=== PATIENT | male | born 1975 | race Caucasian/White ===

== ENCOUNTER 2023-09-10 14:01 | Outpatient (CLI) | payer OTHER, SELFPAY ==
--- NOTE | ~2023-09-10 | CT_ITS ---
EXAMINATION: CT abdomen pelvis w con INDICATION: Abdominal pain TECHNIQUE: Computed tomographic images of the abdomen and pelvis were obtained after the administrati on of 100 cc of Omnipaque 350 intravenous contrast. The dose-length product (DLP) was 483.45 mGy-cm. Automated exposure control and iterative reconstruction technique were employed. COMPARISON: None available FINDINGS: The lung bases are clear. The heart size is normal. There are changes of cholecystectomy. T he liver, spleen, pancreas, and adrenal glands are normal. The right kidney is unremarkable. Cysts of the left kidney measure up to 2.4 cm. No pathologically enlarged abdominal or pelvic lymph nodes are identified. No free intraperitoneal gas or evidence of bowel obstruction. No pathologically enlarged abdominal or pelvic lymph nodes are identified. There is submucosal fat deposition in the proximal c olon and terminal ileum which is nonspecific but can be seen in the setting of inflammatory bowel dis ease. There is moderate lumbar spondylosis at L5-S1. IMPRESSION: 1. No CT correlate for the patient's symptoms. Reviewed, dictated and finalized at location L. NEERING ADMINISTRATOR
== END 2023-09-10 14:02 | disposition home or self-care (01) ==
PROVIDERS: PCP Emergency Medicine; Visit Provider Emergency Medicine
DX: R10.10 Upper abdominal pain, unspecified (principal)
CPT/HCPCS: 74177; Q9967

== ENCOUNTER 2023-10-07 07:51 | Outpatient (CLI) | payer OTHER, SELFPAY ==
--- NOTE | 2023-10-07 08:04 | ECHO_ITS ---
Patient Info Name: Philip De Leon Age: 48 years : 1975 Gender: Male Ht: 69 in Wt: 190 lbs BSA: 2.07 m2 HR: 67 bpm BP: 130 / 87 mmHg Technical Quality: Good Exam Date: 10/07/2023 8:08 AM Exam Location: Echo Lab Patient Status: Outpatient Admit Date: 10/07/2023 Staff Ordering Physician: Santiago Desouza DO Resume Writer: Tamera Lancaster RDCS Attending Provider: Santiago Desouza DO Referring Physician: Deo WILEY; Exam Type: CA echo doppler color flow Study Info Indications R06.09 - Other forms of dyspnea Complete two-dimensional, color flow and Doppler transthoracic echocardiogram is performed. Strain analysis performed. Summary 1. Complete two-dimensional, color flow and Doppler transthoracic echocardiogram is performed. 2. Left ventricular chamber dimension is normal. 3. Left ventricular systolic function is normal, estimated at 60-65%. 4. The left ventricular diastolic function is normal. 5. E/e' 7 is not elevated. 6. Global longitudinal strain is abnormal at -15.8%. 7. There is trace mitral valve regurgitation. 8. There is trace tricuspid valve regurgitation. 9. No pulmonary hypertension, estimated pulmonary arterial systolic pressure is 19 mmHg. Left Ventricle E/e' 7 is not elevated. Global longitudinal strain is abnormal at -15.8%. Left ventricular chamber dimension is normal. Left ventricular systolic function is normal, estimated at 60-65%. The left ventricular diastolic function is normal. Right Ventricle Right ventricular chamber dimension is normal. Right ventricular systolic function is normal. Left Atria Left atrial chamber dimension is normal. Right Atria Right atrial chamber dimension is normal. Aortic Valve The aortic valve is trileaflet. There is no aortic valve stenosis. There is no aortic valve regurgitation. Pulmonic Valve There is no pulmonic regurgitation. Mitral Valve There is no mitral valve stenosis. There is trace mitral valve regurgitation. Tricuspid Valve There is trace tricuspid valve regurgitation. No pulmonary hypertension, estimated pulmonary arterial systolic pressure is 19 mmHg. Pericardium/Pleural There is no pericardial effusion. Inferior Vena Cava Normal inferior vena cava with >50% collapse upon inspiration consistent with normal right atrial pressure, 5 mmHg. Aorta The aortic root size at the sinus of Valsalva is normal. Left Ventricular Outflow Tract Name Value Normal LVOT 2D LVOT Diameter 2.0 cm LVOT Doppler LVOT Peak Gradient 3 mmHg LVOT Mean Gradient 2 mmHg LVOT VTI 17 cm LVOT VTI/AV VTI Ratio 1.0 LVOT Stroke Volume 54 ml LVOT CO 3.8 l/min LVOT CI 1.8 l/min/m2 Pulmonic Valve Name Value Normal RVOT Doppler RVOT Peak Gradient 1 mmHg
--- NOTE | 2023-10-07 08:04 | EST_ITS ---
Patient Info Name: Philip De Leon Age: 48 years : 1975 Gender: Male Ht: 69 in Wt: 190 lbs BSA: 2.07 m2 HR: 72 bpm BP: 139 / 89 mmHg Heart Rhythm: Sinus Rhythm Exam Date: 10/07/2023 8:43 AM Exam Location: Echo Lab Patient Status: Outpatient Admit Date: 10/07/2023 Staff Ordering Physician: Santiago Desouza DO Attending Provider: Santiago Desouza DO Exercise Technologist: Steffanie Silveira CT Exercise Physician: Santiago Desouza DO Exam Type: CA stress test treadmill Study Info Indications R07.89 - Other chest pain R06.09 - Other forms of dyspnea A treadmill exercise stress test was performed. Summary 1. 1. Negative Asa exercise stress test for ischemic ST changes by ECG criteria. 2. 2. Good functional capacity, achieving 10 METs of workload. 3. 3. Hypertensive response to exercise. 4. 4. Appropriate HR response to exercise. 5. 5. Appropriate HR recovery at 1 minute post exercise. 6. 6. No imaging with stress testing. 7. 7. Patient informed of the above results. Protocol: Asa Stress ECG Details Stage: REST Duration (min): 5 min : 13 sec Speed (mph): 0.0 Grade (%): 0 HR (bpm): 83 SBP (mmHg): 139 DBP (mmHg): 89 METS: --- Stage: REST Duration (min): 8 min : 17 sec Speed (mph): 0.0 Grade (%): 0 HR (bpm): 80 SBP (mmHg): 139 DBP (mmHg): 89 METS: --- Stage: STAGE 1 Duration (min): 1 min : 0 sec Speed (mph): 1.7 Grade (%): 10 HR (bpm): 100 SBP (mmHg): 139 DBP (mmHg): 89 METS: --- Stage: STAGE 1 Duration (min): 2 min : 0 sec Speed (mph): 1.7 Grade (%): 10 HR (bpm): 107 SBP (mmHg): 139 DBP (mmHg): 89 METS: --- Stage: STAGE 1 Duration (min): 3 min : 0 sec Speed (mph): 1.7 Grade (%): 10 HR (bpm): 106 SBP (mmHg): 180 DBP (mmHg): 94 METS: --- Stage: STAGE 2 Duration (min): 1 min : 0 sec Speed (mph): 2.5 Grade (%): 12 HR (bpm): 119 SBP (mmHg): 180 DBP (mmHg): 94 METS: --- Stage: STAGE 2 Duration (min): 2 min : 0 sec Speed (mph): 2.5 Grade (%): 12 HR (bpm): 122 SBP (mmHg): 198 DBP (mmHg): 91 METS: --- Stage: STAGE 2 Duration (min): 3 min : 0 sec Speed (mph): 2.5 Grade (%): 12 HR (bpm): 126 SBP (mmHg): 198 DBP (mmHg): 91 METS: --- Stage: STAGE 3 Duration (min): 1 min : 0 sec Speed (mph): 3.4 Grade (%): 14 HR (bpm): 138 SBP (mmHg): 204 DBP (mmHg): 95 METS: --- Stage: STAGE 3 Duration (min): 2 min : 0 sec Speed (mph): 3.4 Grade (%): 14 HR (bpm): 146 SBP (mmHg): 204 DBP (mmHg): 95 METS: --- Stage: STAGE 3 Duration (min): 2 min : 59 sec Speed (mph): 4.2 Grade (%): 16 HR (bpm): 153 SBP (mmHg): 211 DBP (mmHg): 93 METS: --- Stage: RECOVERY Duration (min): 1 min : 0 sec Speed (mph): 0.0 Grade (%): 0 HR (bpm): 128 SBP (mmHg): 211 DBP (mmHg): 93 METS: --- Stage: RECOVERY Duration (min): 2 min : 0 sec Speed (mph): 0.0 Grade (%):
== END 2023-10-07 07:52 | disposition home or self-care (01) ==
PROVIDERS: PCP Emergency Medicine; Visit Provider Internal Medicine Cardiovascular Disease
DX: R06.09 Other forms of dyspnea (principal); R07.89 Other chest pain
CPT/HCPCS: 93017; 93306

== ENCOUNTER 2024-05-19 13:06 | Outpatient (CLI) | payer OTHER, SELFPAY ==
--- NOTE | ~2024-05-19 | US_ITS ---
EXAMINATION: US renal BI DATE: 05/19/2024 13:20 INDICATION: Renal calculus and renal insufficiency TECHNIQUE: Multiple ultrasound grayscale images of the kidneys were obtained. COMPARISON: None. FINDINGS: The right kidney measures 11.2 x 4.4 x 5.5 cm. The left kidney measures 11.6 x 5.7 x 5.7 cm. The kidn eys demonstrate normal echogenicity. 2.6 similar anechoic left renal cyst. There is no hydronephrosis in either kidney. No stones identified. The bladder is normal. IMPRESSION: 1. 2.6 cm left renal cyst. Otherwise normal kidneys without hydronephrosis. Reviewed, dictated and finalized at location A.
== END 2024-05-19 13:07 ==
PROVIDERS: PCP Emergency Medicine; Visit Provider Internal Medicine Nephrology
DX: N20.0 Calculus of kidney (principal); N28.1 Cyst of kidney, acquired
CPT/HCPCS: 76775

== ENCOUNTER → 2024-05-27 09:02 | Outpatient (CLI) | payer OTHER, SELFPAY ==
--- NOTE | 2024-06-04 16:37 | WPDSLEEPSTUD ---
Sleep Study Date of Study: 05/27/24 Ordering Provider: Hayden Carrillo MD Interpreting Physician: Debbie Mike MD Sleep Study Type: CPAP Titration Height: 1.75 m Weight: 80.286 kg Body Mass Index: 26.1 Neck Circumference (inches): 16 Wilson: 6 Reason for Sleep Study Obstructive sleep apnea, patient presents for a CPAP titration * 08/13/2023 home sleep test using Snap portable test; the apnea-hypopnea index was 28.1, the central apnea index was 4.5 and the central% ratio was 16%. Lowest saturation 86%. RDI using a 4% criteria was 28.6; BMI was 28.2 * 06/13/2021, PSG, AHI 11.3, REM AHI 29.9 * 06/10/2017, [facility] in [place], [place], AHI 1.4, REM AHI 6.1; RDI 15.7 minimum saturation 91%; patient could not tolerate an oral appliance Sleep History Ramiro De Leon is a 48-year-old man with obstructive sleep apnea, currently having difficulty because his mask does not fit properly. He is having too many events. Initially his treatment was effective. When he had other conditions such as kidney stones, his apneas increased. His kidney stones were removed but he continues to have elevated numbers of apneas on his reports. He rarely and sometimes occasionally awakens from sleep feeling short of breath. He never wakes at night with heartburn, belching or coughing.??He frequently snores, frequently snores loudly enough that others complain. He rarely has trouble sleeping when he has a cold. He rarely wakes up gasping for breath during the night. He occasionally has breathing problems at night if he is not wearing CPAP. He occasionally sweats excessively at night. He rarely notices his heart pounding or beating irregularly during the night. He never falls asleep during the day. He never falls asleep involuntarily, never falls asleep while driving. He never experiences loss of muscle tone with strong emotion. He rarely has daytime difficulty at work due to excessive sleepiness. He never feels paralyzed on waking or falling asleep. He never experiences vivid dreams upon waking or falling asleep. He never feels afraid of going to sleep. He rarely has nightmares. He never recalls his dreams. He rarely has thoughts racing through his mind. He rarely feels sad or depressed. He rarely feels anxiety. He rarely notices parts of his body jerk. He never kicks during the night. He never feels crawling or aching feelings in his legs. He never feels leg pain at night. He never has morning jaw pain, rarely grinds his teeth at night. He never feels bothered by pain during the day, never awakened by pain during the night. He occasionally wakes up feeling stiff in the morning, and he rarely wakes feeling sore or achy. He frequently awakens with pain in his hip and lower back. He has fatigue, headache, and palpitations. He has seasonal allergies. He reports 11 lb weight loss over the last year. Normal bedtime is between 10:00 p.m. and 11:00 p.m., falling asleep usually quickly, and off not waking up at all during the night. If he does awaken, he goes to the bathroom, has a sip of water and returns to sleep. His normal wake time is 10:00 a.m.. He keeps the same schedule on weekends. He estimates getting between 6 and 8 hours of sleep at night. He takes naps in the day at times however a short nap lasting 10-15 minutes is not refreshing. He generally feels better after using CPAP at night. He feels better in the morning compared to other times of day. Habits:??Tobacco: Never smoker Caffeine: 3-4 servings per day Alcohol: Never Recreational substances: Never PMFSH Past Medical History Medical History (Updated 05/11/24 @ 15:42 by Nessa Dominguez MD) Dyslipidemia Nephrolithiasis TYLER (obstructive sleep apnea) Surgical History Surgical History (Updated 06/04/24 @ 16:46 by Debbie Mike MD) H/O arthroscopy of right knee History of cholecystectomy S/P T&A (status post tonsillectomy an
[2024-06-04 16:48] VITALS: BMI 26.1
== END ==
LOC: ANHCSM 09:07
PROVIDERS: PCP Emergency Medicine; Visit Provider Emergency Medicine
DX: G47.33 Obstructive sleep apnea (adult) (pediatric) (principal)
CPT/HCPCS: 95811

== ENCOUNTER 2025-01-08 13:07 | Outpatient (CLI) | payer OTHER, SELFPAY ==
--- OUTSIDE RECORDS SUMMARY | 2025-01-08 13:32 | XMS_ITS | Patient Health Summary ---
Author Organization [facility] Address [address] [place] [address] Care Team Providers Care Air Purifier Servicer Name Role Phone Unavailable Primary Care Provider Unavailabl e Note from [facility],non-owned Affiliates and Associated Physician Practices is amultiple site organization consisting of ambulatory clinics and hospital sitesin [place], [place], [place] and [place]. This disclosure is being madepursuant to the Care Everywhere program and may not contain all information available regarding this patient. Last updated 18.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 INSTRUCTOR Height 179.1 cm (5' 10.5 ) 10/31/2020 1:50 PM CS T Body Mass Index 26.45 10/31/2020 1:50 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 The specimen consists of a shave biopsy measuring 7x7x2 mm. Jar 0. 3:31 PM [facility] Microscopic Description Specimen A. SKIN, right forearm: There is acanthosis, compact hyperkeratosis, hypergranulosis, and fibrosis of the papillary dermis. There is an ulcer, beneath which there are vascular proliferation, fibroblasts, a mixed inflammatory infiltrate, and an edematous stroma. Grocott's methenamine silver (GMS) stain is negative for fungal elements in the sections examined. Tissue Gram stain is negative for bacteria in the sections examined. COMMENT: The overall histologic features are somewhat nonspecific, and can be seen in the setting of healing skin and ulceration. Prurigo nodularis with ulceration was also considered. A superimposed dermatitis, such as connective tissue disease, cannot be excluded. Clinical correlation is recommended. 3:31 PM [facility] Disclaimer An external and internal positive and negative controls are appropriate for the histochemical, immunohistochemical and immunofluorescence stain(s) in this case (if any), except where stated explicitly. The performance characteristics of the stain(s) cited in this report were developed and its performance characteristic determined by the Dermatopathology Laboratory at [facility], directed by Dr. Calvin Ayers. These tests need not be, and therefore are not, approved by the [place] Food and Drug Administration. The tests are used for clinical purposes. Billing Codes Specimen Charges Stain Charges 05725 1 [id number] 1 1 3:31 PM [facility] Embedded Images 3:31 PM CDT DERMATOPATHOLOGY LABORATORY Pathology/Cytolog y TISSUE SPECIMEN FROM SKIN / Unknown 08/12/2024 08/13/2024 12:50 PM CDT Letty Almanza MD LAB - PATHOLOGY/CYTO LOGY ORDERABLES DERMATOPATHOLOGY LABORATORY [facility] - Department of Dermatology [facility] [address] [place] [address], [address] [phone]
--- OUTSIDE RECORDS SUMMARY | 2025-01-08 13:32 | XMS_ITS | Clinical Summary ---
Author Organization [facility] Address [address] [place] [address] Care Team Providers Care Second Hand Name Role Phone Unavailable Primary Care Provider Unavailabl e Source Comments [facility],non-owned Affiliates and Associated Physician Practices is amultiple site organization consisting of ambulatory clinics and hospital sitesin [place], [place], [place] and [place]. This disclosure is being madepursuant to the Care Everywhere program and may not contain all information available regarding this patient. 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 Temperature - - Respiratory Rate - - Oxygen Saturation - - Inhaled Oxygen Concentration - - Weight 84.8 kg (187 lb) 10/31/2020 1:50 PM CERTIFIED ACTIVITIES DIRECTOR Height 179.1 cm (5' 10.5 ) 10/31/2020 1:50 PM CS T Body Mass Index 26.45 10/31/2020 1:50 PM 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 DIRECTOR Plan of Treatment Health Maintenance Due Date Last Done Comments COLOGUARD (AGES 45-75) - COL ON CA SCREENING 1975 COLON MONITORING 1975 COLONOSCOPY - COLON CA SCREENING 1975 CT COLONOGRAPHY - COLON CA SCREENING 1975 Colorectal Cancer Screening 1975 FIT - COLON CA SCREENING 1975 FLEX SIG - COLON CA SCREENING 1975 LIPID TESTING 1975 HIV SCREENING 1988 HEPATITIS C SCREENING 07/24/1991 DTAP/TDAP/TD VACCINES (1 - Tdap) 1992 HEPATITIS B VACCINE (1 of 3 - 19+ 3-dose series) 1992 SCREENING FOR DIABETES 11/01/2020 PNEUMOCOCCAL VACCINE 50+ (1 of 1 - PCV) 2023 ZOSTER VACCINE (1 of 2) 2023 COVID-19 VACCINE (1 - 2023-2 5 season) 2024 INFLUENZA VACCINE (#1) 2024 DEPRESSION SCREENING 11/04/2024 HIB VACCINE Aged Out No longer eligi ble based on patient's age to complete this topic HPV VACCINE Aged Out No longer eligi ble based on patient's age to complete this topic MENINGOCOCCAL (Group B) VACCINE Aged Out No longer eligible based on patient's age to complete this topic MENINGOCOCCAL VACCINE Aged Out No иван david eligible based on patient's age to complete this topic PNEUMOCOCCAL VACCINE Aged Out No long er eligible based on patient's age to complete this topic
--- OUTSIDE RECORDS SUMMARY | 2025-01-08 13:32 | XMS_ITS | Continuity of Care Document ---
Author Organization [facility] Address [address] [facility] [place] [address] Phone Care Team Providers Care Linux System Administrator Name Role Phone Hayden Carrillo MD Unavailable Unavailable Allergies, Adverse Reactions, Alerts Substance Reaction Status Criticality morphine Active No Information Procedures Procedure Date OFFICE/OUTPATIENT VISIT, EST OFFICE/OUTPATIENT VISIT, EST OFFICE/OUTPATIENT VISIT, EST OFFICE/OUTPATIENT VISIT, EST OFFICE/OUTPATIENT VISIT, EST PREV VISIT, EST, AGE 40-64 OFFICE/OUTPATIENT VISIT, EST OFFICE/OUTPATIENT VISIT, EST PREV VISIT, NEW, AGE 40-64 Advance Directives Directive Yes / No Effective Date File Name No Information Encounters Encounter Description Practice Location Reason(s) For Visit Diagnoses Date Provider Providers Copied on Encounter OFFICE/OUTPA TIENT VISIT, EST [facility], [address] [place], [place], [id number], tel:[phone] [facility] sleep apnea1 (chief complaint) renal stone1 (chief complaint) skin (chief complaint) Renal stoneObstructive Sleep Apnea HypopneaStage III chronic renal diseaseRashHypergly cemia Gerardo Blake. [address] [place], [id number] , [place]. tel:[phone] OFFICE/OUTPA TIENT VISIT, EST [facility], [address] [place], [id number], tel:[phone] [facility] cough1 (chief complaint) skin1 (chief complaint) Cellulitis of right upper limbAcute cough 4 Gerardo Ramirez [address], [place], [place], [address] , [place]. tel:[phone] OFFICE/OUTPA TIENT VISIT, [facility], [address] [place], [id number], [place] tel:[phone] [facility] sleep apnea1 (chief complaint) palpitatio n1 (chief complaint) skin (chief complaint) liver cyst1 (chief complaint) Liver diseaseObstructive Sleep Apnea HypopneaPalpitation sStaphylococcus aureus infection 4 Gerardo Ramirez [address], [place], [place], [id number] , [place]. tel:[phone] OFFICE/OUTPA TIENT VISIT, [facility], [address] [place], [address], [place] tel:[phone] [facility] sleep apnea1 (chief complaint) palpitatio n1 (chief complaint) plantar1 (chief complaint) liver cyst1 (chief complaint) Liver diseaseObstructive sleep apnea (adult) (pediatric)Other chest painPlantar fascial fibromatosis 3 Gerardo Ramirez [address], [place], [place], [address] , [place]. tel:[phone] OFFICE/OUTPA TIENT VISIT, [facility], [address] [place], [address], [place] tel:[phone] [facility] HLP (chief complaint) bili1 (chief complaint) sleep apnea1 (chief complaint) chest pain1 (chief complaint) foot pain1 (chief complaint) left side abd pain1 (chief complaint) Plantar fascial fibromatosisOther chest painLiver diseaseMixed hyperlipidemiaDisor patrice of bilirubin metabolism, unspecifiedObstruct efe sleep apnea (adult) (pediatric)Upper abdominal pain 3 Gerardo Ramirez [address], [place], [place], [address] , [place]. tel:[phone] PREV VISIT, EST, AGE 40-64 [facility], [address], [place], [place], [address], [place] tel:[phone] [facility] physical (chief complaint) Encounter for general adult medical exam w abnormal findingsPrimary central sleep apneaLiver diseaseRadiculopath y, cervical region 3 Gerardo Blake. [address], [place], [place], [address] , [place]. tel:[phone] OFFICE/OUTPA TIENT VISIT, EST [facility], [address], [place], [place], [address], [place] tel:[phone] [facility] sick1 (chief complaint) sleep apnea1 (chief complaint) radiculopa thy1 (chief complaint) liver lesion1 (chief complaint) Viral infectionPrimary central sleep apneaLiver diseaseRadiculopath y, cervical region 2 Gerardo Blake. [address], [place], [place], [address] , [place]. tel:[phone] PREV VISIT, NEW, AGE 40-64 [facility], [address], [place], [place], [address], [place] tel:[phone] [facility] Medicine physical (chief complaint) Encounter for general adult medical examination without abnormal findings 1 Gerardo Blake. [address], [place], [place], [address] , [place]. tel:[phone] Family History Family Member Type Diagnosis Age At Onset Mother Problem of 66 due to vaginal CA Father Problem Alive and well Maternal grandfather Problem colon CA 70s Sister Problem Alive and well Payers Payer name Insurance type Covered democrat ID Authoriza tion(s) No Information Social History Type Description Quantity Date Captured Comments Alcohol Use Details wine Caffeine Use Details Unknown Tobacco Use Status Current non-smoker Smoking Status Never smoker Sex Male Vital Signs Date / Time: Height Weight BMI Pulse Rate Blood Pressure Temperature Respiratory Rate Body Surface Area Head Circumference BMI percentile Pulse Ox Inhaled Ox 2:57 PM 69.00 in 182.00 lbs 26.8 8 kg/m eter (2) 81 /min 110/70 mm[Hg] 98.4 F 16 /min Chief Complaint And Reason For Visit From encounter dated '04/02/2024 14:49'. sleep apnea1 (chief complaint). Description: pt has sleep apnea. pt has been using cpap nightly andhe notices that he feels more tired in the morning with more apnea event at night despite using cpap recently. He was doing well with cpap until about two weeks ago . renal stone1 (chief complaint). Description: Pt had obstructed right side renal stone recently s/p hospital admission with stenting which was removed. Pt doing ok post the stent removal Pt urinating ok now Pt denies any flank pain or fever, chill. Pt denies any blood in urine Pt did have repeat renal function done which showed some persistent high creatine and low GFR Pt is very concerned about the renal issue. He also has left side benign renal cyst. Pt wants to see nephrology skin (chief complaint). Description: Pt did see dermatology and he told me the caterpillar mechanic told him the skin rash was due to dry skin He does not agree with such diagnosis Pt thinks that his skin issue is due to renal issue. He states that as soon as his renal stone was removed, his rash resolvedHe is concerned for any intraparenchymal renal disease. Plan Of Treatment Date Type Action Status Referral Ordered: Nephrology (related to Stage III chronic renal disease) ordered Referral Ordered: Referrals: Nephrology. Evaluate and treat ordered Referral Ordered: Dermatology (related to Staphylococcus aureus infection) ordered Referral Ordered: Referrals: Dermatology. Evaluate and treat ordered Referral Ordered: [facility] -Podiatric Medicine & Surgery Service Providers : Boom Pump Operator (related to Plantar fascial fibromatosis) ordered Referral Ordered: CT ABDOMEN&PELVIS W/CONTRAST ordered Referral Ordered: SLEEP STUDY, ATTENDED ordered Referral Referred To: [facility] [address] [facility]
[place], [place], [id number] Ordered: Referrals: Podiatric Medicine & Surgery Service Providers : Boom Pump Operator. [facility]. Evaluate and treat ordered Referral Referred To: Santiago Desouza [address] [place], [phone] Ordered: Referrals: Santiago Desouza. Evaluate and treat ordered Referral Ordered: MOTOR NERVE CONDUCTION TEST ordered History Of Present Illness Encounter Date Complaint History Of Prese nt Illness sleep apnea1 pt has sleep pumper brewery ea. pt has been using cpap nightly and he notices that he feels more tired in the morning with more apnea event at night despite using cpap recently. He was doing well with cpap until about two weeks ago . renal stone1 Pt had obstructe d right side renal stone recently s/p hospital admission with stenting which was removed. Pt doing ok post the stent removal Pt urinating ok now Pt denies any flank pain or fever, chill. Pt denies any blood in urine Pt did have repeat renal function done which showed some persistent high creatine and low GFR Pt is very concerned about the renal issue. He also has left side benign renal cyst. Pt wants to see nephrology skin Pt did see irina casey and he told me the caterpillar mechanic told him the skin rash was due to dry skin He does not agree with such diagnosis Pt thinks that his skin issue is due to renal issue. He states that as soon as his renal stone was removed, his rash resolved He is concerned for any intraparenchymal renal disease. cough1 Pt states that h e coughed this morning and he saw some worm like thing under microscope in his phlegm. Pt denies any hemoptysis. Pt denies any sob. pt denies any recurrent cough skin1 Pt has recurrent open skin sores with some clear drainage without itching for one year Pt notices mild pain sometimes when the spots flare up. Pt denies any sick contact. Pt denies any fever Pt is on doxycycline which seems to make the area less red but they still persists sleep apnea1 Pt has sleep pumper brewery ea Pt has been using cpap since September of last year and he feels great pt feels more energy and better rest at night. palpitation1 Pt has history o f palpitation with atypical chest pain Pt saw cardiology and he had negative stress test and cardiac echo and event monitor. he was cleared by cardiology he also had negative calcium score test He states that his palpitation and chest pain resolved since using cpap skin Pt has recurrent open skin sores with some clear drainage without itching for one year Pt notices mild pain sometimes when the spots flare up. Pt denies any sick contact. Pt denies any liver cyst1 Pt has history o f liver cyst. pt has mild left abdominal pain. pt had negative CT scan Pt no longer has any pain now sleep apnea1 Pt has moderate and severe sleep apnea with oxygen desaturation palpitation1 Pt has intermitt ent palpitation and chest pain, nonexertional related Pt denies any acute chest pain Pt has sonal with cardiology this Saturday plantar1 Pt has left foot plantar fasciitis .Pt saw podiatry and he is on voltaren and he is on daily exercise and boot now and his foot pain improved. liver cyst1 Pt has liver cys t Pt has not had any abd pian Pt has not done liver Ct yet chest pain1 Pt c/o intermitt ent chest pain and palpitation and some exertional sob frequently. Pt denies any diaphoresis, nausea, vomiting. Pt has not been physically active Pt states that he feels mildly sob when he goes up stairs foot pain1 Pt c/o left heel pain with radiation of pain to arch of feet, worse in the morning, but gets better with ambulation. Pt has above symptoms for more than 6 months pt denies any heel redness, warmth Pt denies any injury Pt denies any paresthesia or calf pain left side abd pain1 Pt c/o inter mittent left upper quadrant abd pain with movement for several months Pt denies any GERd, nausea, vomiting Pt c/o sharp pain sometimes Pt denies any postprandial pain HLP Pt has mild HLP Pt is not on any diet bili1 Pt has borderlin e high bili Pt denies any abd pain or jaundice. sleep apnea1 Pt has history o f sleep apnea Pt does snore at night. Pt had sleep study done 5 years ago which showed mild sleep apnea Pt never used cpap. Pt has been using dental device for the past two years and he wants to use cpap He does feel tired all the time physical Pt needs annual physical. Pt has intermittent neck pain with left radiculopathy to left arm Pt denies any weakness. Pt states that overall his left radiculopathy and neck pain have not been very bothersome recently Pt has ? cervical disc pathology. Pt is seeing [facility] doctor but no plans for any further work up per patient. He also has sleep apnea but he is not using cpap. Pt denies any fatigue Pt denies any snoring Pt denies any other complaints sick1 Pt c/o acute ons et of sore throat productive cough for 1.5 weeks. Pt denies any fever, sob. Pt is fully vaccinated for COVID and he had multiple negative home COVID testing since last week Pt received flu shot 2 weeks ago. Pt denies any headache or dysphagia. Pt denies any chest pain sleep apnea1 Pt has sleep juarez dy done which showed sleep apnea Pt is waiting for cpap radiculopathy1 Pt c/o persisten t left arm numbness and tingling with radiculopathy symptoms. Pt had NCS done which showed cervical disc issue Pt was told by [facility] that he needs surgery but he is not interested in any neck surgery Pt states that his left arm symptoms are not bad now. He has mild neck pain intermittently liver lesion1 Pt recently had CT of abdomen done by [facility] and was told ok per patient. Pt denies any abd pain physical Pt needs annual physical. Pt has sleep apnea and he is in the process of getting CPAP set up. Pt sees sleep specialist. Pt c/o acute onset of left shoulder pain with radiation of pain down to left wrist for 5-6 weeks Pt denies any injury. Pt also notices a sharp pain left axillary area for 5-6 weeks as well. Pt denies any ricardo neck pain .Pt also has some pain left upper chest wall area constantly for 5-6 weeks ago .Pt denies any GERD. Pt states that he does cardio exercise without any chest pain. Pt denies any sob .Pt went to [facility] ER on 05/31/21 for chest pain and he had negative cardiac enzymes and EKG and he had CT angio of chest, abd and pelvis which showed benign hepatic cyst. Pt denies any exertional chest pain. Pt also has left arm numbness and tingling and weakness. Pt is seeing PCP at [facility] who ordered C spine and left shoulder MRi which he is scheduled for this Saturday. Pt takes flexeril and also mobic but not helping his constant pain around left shoulder and left armpit. Pt had x ray of c spine and left shoulder done which were benign. Instructions Date Instruction Additional Infor mation No Information Assessments Type Assessment Date assessment Renal stone assessment Obstructive Sleep Apnea Hypopnea assessment Stage III chronic renal disease assessment Rash assessment Hyperglycemia Mental Status Date Cognitive Assessment Orientation - [place] ed to time, place, person, situation.
--- OUTSIDE RECORDS SUMMARY | 2025-01-08 13:32 | XMS_ITS | Referral Summary ---
Author Organization [facility] Address [address] [place] [address] Care Team Providers Care Basin Tender Name Role Phone Unavailable Primary Care Provider Unavailabl e Source Comments [facility],non-owned Affiliates and Associated Physician Practices is amultiple site organization consisting of ambulatory clinics and hospital sitesin [place], [place], [place] and [place]. This disclosure is being madepursuant to the Care Everywhere program and may not contain all information available regarding this patient. Last updated 18.[facility] [employer] Allergies No known active allergies Social History Tobacco Use Types Packs/Day Years Used Date Smoking Tobacco: Never Assessed Sex and Gender Information Value Date Recorded Sex Assigned at Not on file Gender Identity Not on file Sexual Orientation Not on file Last Filed Vital Signs Vital Sign Reading Time Taken Comments Blood Pressure - - Pulse 72 10/31/2020 1:50 PM SCISSORS SHARPENER Temperature - - Respiratory Rate - - Oxygen Saturation - - Inhaled Oxygen Concentration - - Weight 84.8 kg (187 lb) 10/31/2020 1:50 PM SCISSORS SHARPENER Height 179.1 cm (5' 10.5 ) 10/31/2020 1:50 PM CS T Body Mass Index 26.45 10/31/2020 1:50 PM SCISSORS SHARPENER Plan of Treatment Not on file
--- OUTSIDE RECORDS SUMMARY | 2025-01-08 13:32 | XMS_ITS | Clinical Summary ---
Author Organization [facility] Address [facility] [place] [address] Care Team Providers Care Ground Systems Engineer Name Role Phone Hayden Carrillo MD Primary Care Provider [phone] Allergies Active Allergy Reactions Criticality Noted Date Comments Morphine Anaphylaxis High 12/03/2017 Medications Pediatric Multiple Vitamins (FLINTSTONES MULTIVITAMIN OR) Take 1 tablet by mouth daily. Active famotidine (PEPCID) 20 MG tablet Take 1 tablet (20 mg total) by mouth 2 (two) times daily. 60 tablet 03/25/2024 Active traMADol (ULTRAM) 50 MG tabletIndications :Acute Pain < 3 Day Supply Take 1 tablet (50 mg total) by mouth every 6 (six) hours as needed. Indications : Acute Pain < 3 Day Supply 12 tablet 03/25/2024 Active Active Problems Problem Noted Date Diagnosed Date Kidney stone 03/23/2024 Family History Medical History Relation Comments Cancer Mother Stroke Mother Relation Status Comments Mother Social History Tobacco Use Types Packs/Day Years Used Date Smoking Tobacco: Never Smokeless Tobacco: Never Alcohol Use Standard Drinks/Week Comments No 0 (1 standard drink = 0.6 oz pur e alcohol) [facility] Utilities Answer Date Recorded In the past 12 months has i-drive electric, gas, oil, or water company threatened to shut off services in your home? No 03/23/2024 Humiliation, Afraid, Rape, and Kick questionnair e Answer Date Recorded Within the last year, have y ou been afraid of your partner or ex-partner? No 03/23/2024 Within the last year, have y ou been humiliated or emotionally abused in other ways by your partner or ex-partner? No Within the last year, have y ou been kicked, hit, slapped, or otherwise physically hurt by your partner or ex-partner? No 03/23/2024 Within the last year, have y ou been raped or forced to have any kind of sexual activity by your partner or ex-partner? No 03/23/2024 Overall Financial Resource Strain (CARDIA) Answe r Date Recorded How hard is it for you to pa y for the very basics like food, housing, medical care, and heating? Not hard at all 03/23/2024 Hunger Vital Sign Answer Date Recorded Within the past 12 months, y ou worried that your food would run out before you got the money to buy more. Never true 03/23/20 Within the past 12 months, t he food you bought just didn't last and you didn't have money to get more. Never true 03/23/2024 PRAPARE - Transportation Answer Date Re corded In the past 12 months, has l ack of transportation kept you from medical appointments or from getting medications? No 03/05 In the past 12 months, has l ack of transportation kept you from meetings, work, or from getting things needed for daily living? No 03/23/2024 Housing Stability Vital Sign Answer Apollo e Recorded In the last 12 months, was t here a time when you were not able to pay the mortgage or rent on time? No 03/23/2024 In the past 12 months, how m any times have you moved where you were living? 0 03/23/2024 At any time in the past 12 m [facility], were you homeless or living in a residential (including now)? No 03/23/2024 Sex and Gender Information Value Date Recorded Sex Assigned at Not on file Legal Sex Male 8:18 PM CDT Gender Identity Male 12/05/2022 8:37 AM INVENTORY CONTROL/SHIPPING RECEIVING Sexual Orientation Straight 12/05/2022 8: 37 AM INVENTORY CONTROL/SHIPPING RECEIVING Last Filed Vital Signs Vital Sign Reading Time Taken Comments Blood Pressure 111/70 03/25/2024 4:00 AM CDT Pulse 72 03/25/2024 4:00 AM CDT Temperature 36.6 C (97.8 F) 03/25/2024 7:45 AM CDT Respiratory Rate 17 03/25/2024 4:00 AM CDT Oxygen Saturation 94% 03/25/2024 4:00 AM CDT Inhaled Oxygen Concentration - - Weight 84.4 kg (186 lb 1.1 oz) 03/24/2024 11:56 AM CDT Height 175.3 cm (5' 9.02 ) 03/24/2024 11:56 AM C DT Body Mass Index 27.46 03/24/2024 11:56 AM CDT Plan of Treatment Health Maintenance Due Date Last Done Comments Colorectal Cancer Screening Colonoscopy (10 Years) 1973 Annual Physical 1976 PHQ-2 (Physician Filtr8) 1985 Hepatitis C 1991 DTaP, Tdap and Td Vaccines (1 - Tdap) 1992 Hepatitis B Vaccines (1 of 3 - 19+ 3-dose series) 1992 Zoster Vaccines (1 of 2) 2023 COVID-19 Vaccine ( - 2023- season) 2024 10/14/2021, 02/12/2021, 01/22/2021 Influenza Adult (#1) 2024 09/11/2021, 07/14/2017, 08/06/2016, Additional history exists PHQ-2 (Physician Filtr8) 11/04/2024 Meningococcal B Vaccine Aged Out No l onger eligible based on patient's age to complete this topic Meningococcal Vaccine Aged Out No иван david eligible based on patient's age to complete this topic Pneumococcal Vaccine: Pediatrics (0 to 5 Years) and At-Risk Patients (6 to 64 Years) Aged Out No longer eligible based on patient's age to complete this topic RSV Immunizations Under 20 Months Aged Out No longer eligible based on patient's age to complete this topic Goals Goal Patient Goal Type Associated Problems Recent Progress Patient-Stated? Author Health - patient able to perform ADLs independently Lifestyle No Jamee Irwin, RN Medical Devices Implanted Type Area Radio Electronics Officer Device Identifier Shelf Expiration Date Model / Serial / Lot Stent Ureteral [place] [employer] Contour 7fr X 28cm - [id number] Implanted:Qty : 1 on 03/24/2024 by Saul Youssef MD at [facility] Stent Right: Ureter [employer] [id number] 07/10/2024 [id number] / / [id number] Insurance [facility] Advance Directives * Full Code (Latest Code Status on File) Date Activated Date Inactivated Comments 03/23/2024 2:59 PM 03/25/2024 12:26 PM Care Teams Ground Systems Engineer Relationship Specialty Start Date End Date Hayden Carrillo MD [address] [place] [address] PCP - General FAMILY PRACTICE 04/04/20
--- OUTSIDE RECORDS SUMMARY | 2025-01-08 13:32 | XMS_ITS | Encounter Summary ---
Author Organization [facility] Address [address] [place] [address] Care Team Providers Care Ophthalmologist Name Role Phone Unavailable Primary Care Provider Unavailabl e Encounter Details Date Type Department Care Team (Late st Contact Info) Description 08/12/2024 Lab Requisition [facility] - DermPath Lab [address] [place] [address] Letty Almanza MD [address] [place] [phone] Dermatitis, unspecified Social History Tobacco Use Types Packs/Day Years Used Date Smoking Tobacco: Never Assessed Sex and Gender Information Value Date Recorded Sex Assigned at Not on file Gender Identity Not on file Sexual Orientation Not on file documented as of this encounter Plan of Treatment Not on file documented as of this encounter Procedures Procedure Name Priority Date/Time Associated Diagnosis Comments DERMATOPATHOLOGY Routine 08/12/2024 12:0 0 AM CDT Dermatitis, unspecified documented in this encounter Results * DERMATOPATHOLOGY (08/12/2024 12:00 AM CDT) Case Report Dermatopathology Report Case: [id number] Authorizing Provider: Letty Almanza MD Collected: 08/12/2024 12:00 AM Ordering Location: [facility] - Received: 08/13/2024 12:50 PM DermPath Lab Pathologist: Padma Tee MD Specimen: Skin, right forearm 3:31 PM CDT DERMATOPATHOLOGY LABORATORY Final Diagnosis Specimen A. SKIN, right forearm: HYPERKERATOSIS, ACANTHOSIS, AND HYPERGRANULOSIS (L28.1) ULCER WITH SUPERFICIAL DERMAL NECROSIS (L98.499) (see microscopic description and comment) 3:31 PM [facility] DERMATOPATHOLOGY LABORATORY Clinical History Actinic Prurigo vs Systemic Lupus Erythematosus 3:31 PM [facility] DERMATOPATHOLOGY [facility]ORATORY Gross Description Specimen A: Received is one formalin filled container labeled with the patient's name and designated right forearm. The specimen consists of a shave biopsy measuring 7x7x2 mm. Jar 0. 3:31 PM [facility] DERMATOPATHOLOGY LABORATORY Microscopic Description Specimen A. SKIN, [...] excluded. Clinical correlation is recommended. 3:31 PM [facility] DERMATOPATHOLOGY LABORATORY Disclaimer An external and internal positive and negative controls are appropriate for the histochemical, immunohistochemical and immunofluorescence stain(s) in this case (if any), except where stated explicitly. The performance characteristics of the stain(s) cited in this report were developed and its performance characteristic determined by the Dermatopathology Laboratory at [facility], directed by Dr. Calvin Ayers. These tests need not be, and therefore are not, approved by the [place] Food and Drug Administration. The tests are used for clinical purposes. Billing Codes Specimen Charges Stain Charges 43634 1 [id number] 53918 1 1 3:31 PM T DERMATOPATHOLOGY LABORATORY Embedded Images 3:31 PM [facility] DERMATOPATHOLOGY LABORATORY Pathology/Cytolog y TISSUE SPECIMEN FROM SKIN / Unknown 08/12/2024 08/13/2024 12:50 PM CDT Letty Almanza MD LAB - PATHOLOGY/CYTO LOGY ORDERABLES DERMATOPATHOLOGY LABORATORY [facility] - Department of Dermatology [facility] Special[facility] [address] [place] [address], [address] [phone] documented in this encounter Visit Diagnoses Diagnosis Dermatitis, unspecified documented in this encounter
--- OUTSIDE RECORDS SUMMARY | 2025-01-08 13:32 | XMS_ITS | CONTINUITY OF CARE DOCUMENT ---
Author Name erick suarez Address Unknown Organization [facility] Address [address] [place] [address] Phone [phone] Care Team Providers Care Correctional Security Officer Name Role Phone Agusto Harvey DO Unavailable Santiago Desouza DO Unavailable [phone] PROBLEMS Condition Status Date Provider Notes Cardiovascular screening active Altagracia Marie [employer] PROVID[employer] Payer name Policy type / Coverage type [employer] SELF PAY TREATMENT PLAN Date Name CT, Coronary Calcium Score HISTORY OF PROCEDURES Procedure Date Procedure Name Provider Procedure Notes S tatus CT- Coronary CA score Agusto Harvey DO completed
[2025-01-08 13:52] LABS: Albumin Level 4.9 g/dL (3.5-5.1); Anion Gap 11 mmol/L (4-12); Blood Urea Nitrogen 10 mg/dL (9-20); Calcium 9.4 mg/dL (8.4-10.2); Carbon Dioxide 28 mmol/L (22-30); Chloride 100 mmol/L (98-107); Estimated Glomerular Filt Rate > 60; Glucose 114 mg/dL (65-110); Potassium 3.4 mmol/L (3.4-5.0); Sodium 139 mmol/L (137-145)
[2025-01-08 14:52] LABS: Add Urine Microscopic? NO; Appearance Urine Clear (Clear); Bilirubin Urine Negative (Negative); Blood Urine Negative (Negative); Color Urine Yellow (Yellow); Glucose Urine UA Negative (Negative); Ketones Urine Trace mg/dL (Negative); Leukocyte Esterase Ur Negative LEU/UL (Negative); Nitrate Urine Negative (Negative); Protein Urine Negative (Negative); Specific Grav Ur 1.025 (1.001-1.035); Urobilinogen Urine 0.2 mg/dL (<2.0); pH Urine 5.5 (5.0-9.0)
[2025-01-08 15:28] LABS: Creatinine Urine 239.3 mg/dL
[2025-01-08 15:35] LABS: Total Protein Urine Random < 5 mg/dL; Ur Ttl Prot Creatinine Ratio < 0.02 mg/mg (0-0.20)
== END 2025-01-08 13:08 | disposition home or self-care (01) ==
PROVIDERS: PCP Emergency Medicine; Visit Provider Internal Medicine Nephrology
DX: N20.0 Calculus of kidney (principal); N28.9 Disorder of kidney and ureter, unspecified
CPT/HCPCS: 36415; 80069; 81003; 82570; 84156

== ENCOUNTER 2025-01-25 13:23 | Outpatient (CLI) | payer OTHER, SELFPAY ==
--- NOTE | ~2025-01-25 | US_ITS ---
EXAMINATION: US renal BI DATE: 01/25/2025 14:14 INDICATION: Left flank pain. Nephrolithiasis. TECHNIQUE: Multiple ultrasound grayscale images of the kidneys were obtained. COMPARISON: 05/19/2024 FINDINGS: The right kidney measures 11.5 x 4.1 x 5.0 cm. The left kidney measures 11.8 x 6.3 x 5.8 cm. The kidn eys demonstrate normal echogenicity. 2.8 cm anechoic left renal cyst. There is no hydronephrosis in e ither kidney. No stones identified. The bladder is normal. IMPRESSION: 1. 2.8 cm left renal cyst. Otherwise normal kidneys without hydronephrosis. Reviewed, dictated and finalized at location B.
== END 2025-01-25 13:24 | disposition home or self-care (01) ==
LOC: MICIMG 13:24
PROVIDERS: PCP Emergency Medicine; Visit Provider Internal Medicine Nephrology
DX: N20.0 Calculus of kidney (principal); R10.9 Unspecified abdominal pain; N28.1 Cyst of kidney, acquired
CPT/HCPCS: 76775

== ENCOUNTER 2025-02-04 13:49 | Outpatient (CLI) | payer OTHER, SELFPAY ==
--- NOTE | ~2025-02-04 | CT_ITS ---
Non-contrast CT scan of the Abdomen and Pelvis Clinical indication: Left ureteral stone Technique: 2.5 mm axial scans were obtained through the abdomen and pelvis without intravenous or or al contrast. Dose reduction technique was used on this scan by utilizing automated exposure control a nd iterative reconstruction technique. The dose-length product (DLP) was 214.08 mGy-cm. COMPARISON: 09/10/2023 Findings: Images through the lung bases reveal no abnormalities. Punctate distal left ureteral stone present. No hydronephrosis. No other stones identified. The liver, spleen, pancreas, and adrenals appear normal. Cholecystectomy clips are present. There is no aortic aneurysm. There is no evidence of bowel obstruction. Images through the pelvis were performed. There is no evidence of ascites or lymphadenopathy. Urinary bladder unremarkable. No pelvic mass seen. Impression: Punctate distal left ureteral stone. No hydronephrosis. Reviewed, dictated and finalized at [facility]. Impression: Punctate distal left ureteral stone. No hydronephrosis.
--- NOTE | ~2025-02-04 | XR_ITS ---
EXAM: XR abdomen/kub 1V DATE: 02/04/2025 14:08 HISTORY: URETAL STONE . COMPARISON: None available. FINDINGS: Cholecystectomy clips. Clear lung bases. Normal bowel gas pattern. No organomegaly. No abno rmal abdominal calcification. Regional bones and soft tissues normal for age. IMPRESSION: Unremarkable abdominal radiograph findings. Reviewed, dictated and finalized at location [facility].
--- OUTSIDE RECORDS SUMMARY | 2025-02-04 14:12 | XMS_ITS | Clinical Summary ---
Author Organization [facility] Address [address] [place] [address] Care Team Providers Care Crew Car Driver Name Role Phone Hayden Carrillo MD Primary Care Provider [phone] Allergies Active Allergy Reactions Criticality Noted Date Comments Morphine Unknown,Anaphylaxis High 12/03/2017 Medications multivitamin,tx -minerals (VITAMINS AND MINERALS) tablet Take 1 tablet by mouth. 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 Call immediately if any worsening of symptoms or new flashes, curtain/veil over vision. Peripheral retinal degeneration of both eyes Assessment & Plan (06/11/2018 4:37 PM CDT): Stable appearance c/w 04/16/18, with areas of schisis OU. Symptoms have improved OS, stable floaters OD. Assessment & Plan (04/16/2018 4:45 PM CDT): - With small areas of retinoschisis but no tears or traction - (+) hyperfluorescence in temporal periphery OU on FA, but pattern is more consistent with peripheral RPE atrophy/window defect than vasculitis/leakage - No choroidal thickening peripherally on B-scan, inflammatory cell, or other sign of inflammatory process - Monitor for now; plan to repeat DFEx in 6-8 weeks; if stable, F/U again in several months. Optos photos and FA obtained earlier today. Encounters Date Type Department Care Team Description 01/21/2025 5:41 PM CDT - 01/21/2025 7:27 PM CDT [facility] [address] [place] [address] Kidney stone (Primary Dx) Discharge Disposition: Discharge to home or self care from Last 3 Months Surgical History Surgery Date Site/Laterality Comments ADENOIDECTOMY CHOLECYSTECTOMY TONSILLECTOMY KNEE SURGERY TOOTH EXTRACTION Medical History Medical History Date Comments Retinal tears, multiple, without detachment, iván ateral Social History Tobacco Use Types Packs/Day Years Used Date Smoking Tobacco: Never Smokeless Tobacco: Never Personal Safety Answer Date Recorded Have you ever been in or are you currently in a harmful physical or emotional relationship or is someone making you feel afraid or unsafe? 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 Obstetrics History Last Filed Vital Signs Vital Sign Reading Time Taken Comments Blood Pressure 131/97 01/21/2025 7:05 PM CDT Pulse 76 01/21/2025 7:05 PM CDT Temperature 36.2 C (97.2 F) 01/21/2025 5:23 PM CDT Respiratory Rate 18 01/21/2025 7:05 PM CDT Oxygen Saturation 98% 01/21/2025 7:05 PM CDT Inhaled Oxygen Concentration - - Weight 87 kg (191 lb 12.8 oz) 01/21/2025 5:23 PM CDT Height 175.3 cm (5' 9 ) 01/21/2025 5:23 PM CDT Body Mass Index 28.32 01/21/2025 5:23 PM CDT Plan of Treatment Health Maintenance Due Date Last Done Comments Colon Cancer Screening-Colonoscopy 1973 Depression Screening 1973 Hepatitis C Screening 1973 Prostate Cancer Screening-PSA 1973 Hepatitis B Screening 1991 Regular Well Visit/Exam 18-64 1991 Zoster Vaccine (1 of 2) 2023 Covid-19 Vaccine ( - season) 2024 10/15/2021, 02/12/2021, 01/22/2021 Influenza Vaccine (Season Ended) 2025 09/11/2021, 08/29/2019, 07/14/2017, Additional history exists DTaP/Tdap/Td Vaccine (2 - Td or Tdap) 06/25/2026 06/25/2016 Pneumococcal vaccine <65 Aged Out No longer eligible based on patient's age to complete this topic Procedures Procedure Name Priority Date/Time Associated Diagnosis Comments CT ABDOMEN PELVIS WO CONTRAST ED 01/21/2025 6:14 PM CDT URINALYSIS AND REFLEX TO MICROSCOPIC AND CULTURE STAT 01/21/2025 5:32 PM CDT EGFR STAT 01/21/2025 5:28 PM CDT DIFFERENTIAL AUTO STAT 01/21/2025 5:2 8 PM CDT LIPASE STAT 01/21/2025 5:28 PM CDT COMPREHENSIVE METABOLIC PANEL STAT 01/21/2025 5:28 PM CDT CBC WITH AUTO DIFFERENTIAL STAT 01/21/2025 5:28 PM CDT from Last 3 Months Results * CT Abdomen Pelvis WO Contrast (01/21/2025 6:14 PM CDT) Anatomical Region Laterality Modality Body N/A Computed Tomogra phy 01/21/2025 6:32 PM CDT Narrative 01/21/2025 6:35 PM CDT EXAM DESCRIPTION: CT ABDOMEN PELVIS WO CONTRAST REASON FOR STUDY: Abdominal/flank pain, stone suspected reports left flank pain which radiates to suprapubic x 2 days which worsened POSTMASTER. Pain rated 4/10. Hx kidney stones. TECHNIQUE: CT scan of the abdomen and pelvis performed without intravenous and without oral contrast using helical scanning technique. Reconstructed coronal and sagittal MPR images reviewed. All images stored on PACS. Automated exposure control was used as a dose optimization technique for this examination. COMPARISON: None FINDINGS: The sensitivity for detection of visceral lesions is diminished without the use of intravenous contrast. LOWER CHEST: No significant pulmonary abnormalities. No effusion. LIVER: Decreased attenuation as seen with fibrofatty changes. GALLBLADDER: Surgically absent. BILE DUCTS: No intrahepatic or extrahepatic ductal dilatation. SPLEEN: Normal size. No focal lesions. PANCREAS: No identified cystic or solid masses. No significant calcifications. No adjacent inflammation or peripancreatic fluid collections. Pancreatic duct not dilated. ADRENALS: Normal. KIDNEYS/URINARY TRACT: 2.9 cm left renal cyst. There is no evidence of hydronephrosis, but there is a 1 mm stone in the distal left ureter, located just above the left ureterovesical junction. Urinary bladder is unremarkable. GI: No dilated bowel loops. No obvious wall thickening. Appendix not visualized. Scattered diverticular disease without diverticulitis. PERITONEUM: No ascites or free air. RETROPERITONEUM: No mass or adenopathy. REPRODUCTIVE: No significant abnormality. VASCULATURE: No abdominal aortic aneurysm. MUSCULOSKELETAL: No significant abnormality. OTHER: Small bilateral inguinal hernias containing only fat. IMPRESSION: No evidence of hydronephrosis, but there is a 1 mm stone in the distal left ureter, located just above the left ureterovesical junction. 2.9 cm left renal cyst. Fatty infiltration of the liver. Surgical absence of the gallbladder. Diverticulosis. No evidence of diverticulitis. Small bilateral inguinal hernias containing only fat. THIS IS AN ELECTRONICALLY VERIFIED FINAL REPORT 01/21/2025 6:35 PM - Electronically signed by Stew Mooney M.D. KT: KT Report ID: [id number] Reading Location: [id number] Procedure Note Stew Mooney MD - 01/21/2025 EXAM DESCRIPTION: CT ABDOMEN PELVIS WO CONTRAST REASON FOR STUDY: Abdominal/flank pain, stone suspected reports left flank pain which radiates to suprapubic x 2 days whichworsened POSTMASTER. Pain rated 4/10. Hx kidney stones. TECHNIQUE: CT scan of the abdomen and pelvis performed without intravenousand without oral contrast using helical scanning technique. Reconstructed coronal and sagittal MPR images reviewed. All images stored on PACS.Automated exposure control was used as a dose optimization technique for this examination. COMPARISON: None FINDINGS: The sensitivity for detection of visceral lesions is diminished without the use of intravenous contrast. LOWER CHEST: No significant pulmonary abnormalities. No effusion. LIVER: Decreased attenuation as seen with fibrofatty changes. GALLBLADDER: Surgically absent. BILE DUCTS: No intrahepatic or extrahepatic ductal dilatation. SPLEEN: Normal size. No focal lesions. PANCREAS: No identified cystic or solid masses. No significant calcifications. No adjacent inflammation or peripancreatic fluidcollections. Pancreatic duct not dilated. ADRENALS: Normal. KIDNEYS/URINARY TRACT: 2.9 cm left renal cyst. There is no evidence of hydronephrosis, but there is a 1 mm stone in the distal left ureter,located just above the left ureterovesical junction. Urinary bladder is unremarkable. GI: No dilated bowel loops. No obvious wall thickening. Appendix not visualized. Scattered diverticular disease without diverticulitis. PERITONEUM: No ascites or free air. RETROPERITONEUM: No mass or adenopathy. REPRODUCTIVE: No significant abnormality. VASCULATURE: No abdominal aortic aneurysm. MUSCULOSKELETAL: No significant abnormality. OTHER: Small bilateral inguinal hernias containing only fat. IMPRESSION: No evidence of hydronephrosis, but there is a 1 mm stone in the distalleft ureter, located just above the left ureterovesical junction. 2.9 cm left renal cyst. Fatty infiltration of the liver. Surgical absence of the gallbladder. Diverticulosis. No evidence of diverticulitis. Small bilateral inguinal hernias containing only fat. THIS IS AN ELECTRONICALLY VERIFIED FINAL REPORT 01/21/2025 6:35 PM - Electronically signed by Stew Mooney M.D. KT: KT Report ID: [id number] Reading Location: [place] [address] PROCEDURES Final Result * Urinalysis reflex to microscopic and culture Urine (01/21/2025 5:32 PM CDT) Color, ur Yellow Yellow Comment:Testing performed by : [address] [address] Clarity, ur Clear Clear BERNIE Comment:Testing performed by : [address] [address] Specific gravity, ur 1.023 1.003 - 1.030 BERNIE Comment:Testing performed by : [address] [address] pH, urine 6.0 BERNIE Comment: Interpretive Data U rine pH is affected by diet, medications, systemic acid-base disturbances, and renal tubular function. pH may affect urinary stone formation. For example, urine pH below 6.0 may help reduce the tendency for calcium phosphate stones and pH greater than 6.0 may reduce the tendency for uric acid stone formation. Source: [facility] griddig Current Interpretive Data was last revised on 2017 Testing performed by: [address] [address] Protein, ur ql Negative Negative BERNIE Comment:Testing performed by : [address] [address] Glucose, ur ql Negative Negative BERNIE Comment:Testing performed by : [address] [address] Ketones, ur Negative Negative BERNIE Comment:Testing performed by : [address] [address] Bilirubin, ur Negative Negative BERNIE Comment:Testing performed by : [address] [address] Blood, ur Negative Negative CERNER MH Comment:Testing performed by : [facility], [address] [place] [address]., [address] Urobilinogen, ur <2.0 <2.0 mg/dL BERNIE REAGAN Comment:Testing performed by : [facility], [address] [place] [address], [place]., [address] Nitrite, ur Negative Negative BERNIE Comment:Testing performed by : [address] [address] Leukocyte esterase, ur Negative Negative BERNIE Comment:Testing performed by : [address], [place]., [address] UA reflex comment Reflex conditions for microscopic UA and culture not met. BERNIE Comment:Testing performed by : [address] [address] Urine 01/21/2025 5:32 PM CDT 01/21/2025 5:38 PM CDT Jalen DYER LAB MICROBIOLOGY - GENERAL ORDERABLES Final Result BERNIE [address] [facility] Department of Laboratories [place], [place] [id number] * eGFR (01/21/2025 5:28 PM CDT) eGFR 73 >=60 mL/min/1. 73 m2 Comment: Interpretive Data Reference Interval Normal >/= 90 mL/min/1.73m2 Mildly decreased* 60 - 89 mL/min/1.73m2 Mildly to moderately decreased 45 - 59 mL/min/1.73m2 Moderately to severely decreased 30 - 44 mL/min/1.73m2 Severely decreased 15 - 29 mL/min/1.73m2 Kidney Failure < 15 mL/min/1.73m2 *Relative to young adult level Estimated glomerular filtration rate is determined by the 2020 CKD-EPI equation recommended by the National Kidney Foundation (A Unifying Approach to GFR Estimation: Recommendations of the NKF-ASK Task Force on Reassessing the Inclusion of Race in Diagnosing Kidney Disease, JASN 2020). The CKD-EPI equation should not be used for patients with unstable renal function and has not been validated in children and those over 70. Current interpretive data was last reviewed 2021. Testing performed by: [address] [address] Blood 01/21/2025 5:28 PM CDT 01/21/2025 5:37 PM CDT Jalen DYER LAB BLOOD ORDERABL ES Final Result [facility] [address] [facility] Department [place] [address] * Differential, auto (01/21/2025 5:28 PM CDT) Neutrophil abs 3.1 1.5 - 6.5 K/cumm Comment:Testing performed by : [address] [address] Imm gran abs 0.0 0.0 - 0.1 K/cumm BERNIE Comment:Testing performed by : [address] [address] Lymphocyte abs 1.9 0.8 - 3.3 K/cumm BERNIE Comment:Testing performed by : [address] [address] Monocyte abs 0.6 0.2 - 0.8 K/cumm BERNIE Comment:Testing performed by : [address] [address] Eosinophil abs 0.2 0.0 - 0.5 K/cumm BERNIE Comment:Testing performed by : [address] [address] Basophil abs 0.1 0.0 - 0.1 K/cumm BERNIE Comment:Testing performed by : [address] [address] Neutrophil pct 53.2 % BERNIE Comment: Interpretive Data Percent cell count reference ranges are not reported, since discordance with absolute values may lead to misinterpretation of CBC data. Current Interpretive Data was last revised on 2018. Testing performed by: [address] [address] Imm gran pct 0.2 % [facility] Comment: Interpretive Data Percent cell count reference ranges are not reported, since discordance with absolute values may lead to misinterpretation of CBC data. Current Interpretive Data was last revised on 2018. Testing performed by: [address] [address] Lymphocyte pct 32.9 % [facility] Comment: Interpretive Data Percent cell count reference ranges are not reported, since discordance with absolute values may lead to misinterpretation of CBC data. Current Interpretive Data was last revised on 2018. Testing performed by: [address] [address] Monocyte pct 9.5 % [facility] Comment: Interpretive Data Percent cell count reference ranges are not reported, since discordance with absolute values may lead to misinterpretation of CBC data. Current Interpretive Data was last revised on 2018. Testing performed by: [address] [address] Eosinophil pct 3.2 % [facility] Comment: Interpretive Data Percent cell count reference ranges are not reported, since discordance with absolute values may lead to misinterpretation of CBC data. Current Interpretive Data was last revised on 2018. Testing performed by: [address] [address] Basophil pct 1.0 % [facility] Comment: Interpretive Data Percent cell count reference ranges are not reported, since discordance with absolute values may lead to misinterpretation of CBC data. Current Interpretive Data was last revised on 2018. Testing performed by: [address] [address] Blood 01/21/2025 5:28 PM CDT 01/21/2025 5:37 PM CDT us Jalen DYER LAB BLOOD ORDERABL ES Final Result BERNIE [address] [facility] Department [place] [address] * (ABNORMAL) CBC with auto differential (01/21/2025 5:28 PM CDT) [facility] WBC 5.9 3.8 - 9.9 K/cumm Comment:Testing performed by : [address], [address] Hgb 14.6 13.0 - 17.5 g/dL BERNIE Comment:Testing performed by : [address] [address] Hct 42.4 38.9 - 50.3 % BERNIE Comment:Testing performed by : [address], [address] Plt 252 150 - 400 K/cumm BERNIE Comment:Testing performed by : [address] [address] MPV 8.7(L) 9.1 - 12.3 fL BERNIE Comment:Testing performed by : [address], [address] RBC 4.75 4.30 - 5.80 M/cumm BERNIE Comment:Testing performed by : [address] [address] MCV 89.3 81.3 - 96.4 fL BERNIE Comment:Testing performed by : [address] [address] MCH 30.7 27.1 - 33.3 pg BERNIE Comment:Testing performed by : [address], [address] MCHC 34.4 32.3 - 35.7 g/dL BERNIE Comment:Testing performed by : [address], [address] RDW CV 12.8 11.1 - 14.9 % BERNIE Comment:Testing performed by : [address], [address] RDW SD 41.9 35.7 - 48.1 fL BERNIE Comment:Testing performed by : [address], [address] NRBC abs 0.00 0.00 - 0.01 K/cumm BERNIE Comment:Testing performed by : [address] [address] Blood Venous blood specimen / Unknown 01/21/2025 5:28 PM CDT 01/21/2025 5:37 PM CDT Adebowale Tolulade Adesida PA LAB BLOOD ORDERABL ES Final Result Performing Organization Address [facility] Co de Phone Number [address] [place] [address] * Lipase (01/21/2025 5:28 PM CDT) Pathologist [facility] Lipase 45 10 - 99 Units/L Comment:Testing performed by : [address] [address] Blood Venous blood specimen / Unknown 01/21/2025 5:28 PM CDT 01/21/2025 5:37 PM CDT Adebowale Tolulade Adesida PA LAB BLOOD ORDERABL ES Final Result Performing Organization Address [facility] de Phone Number [address] [address] * Comprehensive metabolic panel (01/21/2025 5:28 PM CDT) Sodium 140 135 - 145 mmol/L Comment:Testing performed by : [address] [address] Potassium, pl 4.0 3.3 - 4.9 mmol/L BERNIE REAGAN Comment:Testing performed by : [address] [address] Chloride 103 97 - 110 mmol/L BERNIE REAGAN Comment:Testing performed by : [address] [address] CO2 29 22 - 32 mmol/L BERNIE REAGAN Comment:Testing performed by : [address] [address] Anion gap 8 2 - 15 mmol/L BERNIE REAGAN Comment:Testing performed by : [address] [address] BUN 10 6 - 25 mg/dL BERNIE Comment:Testing performed by : [address] [address] Creatinine 1.20 0.80 - 1.30 mg/dL BERNIE Comment:Testing performed by : [address] [address] Glucose 111 70 - 199 mg/dL BERNIE Comment: Interpretive Data Fasting glucose >/= 126 mg/dl is diagnostic for diabetes. Fasting is defined as no caloric intake for at least 8 hours. Fasting glucose between 100 mg/dl to 125 mg/dl is diagnostic of prediabetes. In a patient with classic symptoms of hyperglycemia or hyperglycemic crisis, a random glucose >/= 200 mg/dl is diagnostic for diabetes. In the absence of unequivocal hyperglycemia, results should be confirmed by repeat testing. The classification and Diagnosis of Diabetes Diabetes Care 2021; 46: S19-S40. Current interpretive data was last revised 2022. Testing performed by: [address] [address] Calcium 10.0 8.5 - 10.3 mg/dL BERNIE Comment:Testing performed by : [address] [address] Bilirubin, total 0.8 0.1 - 1.2 mg/dL BERNIE Comment:Testing performed by : [address] [address] Protein, pl 7.8 6.5 - 8.5 g/dL BERNIE Comment:Testing performed by : [address] [address] Albumin 4.6 3.5 - 5.0 g/dL BERNIE Comment:Testing performed by : [address] [address] Alk phos 84 40 - 130 Units/L BERNIE Comment:Testing performed by : [address] [address] ALT 38 7 - 55 Units/L BERNIE Comment:Testing performed by : [address] [address] AST 25 10 - 50 Units/L BERNIE REAGAN Comment:Testing performed by : [facility], [address] [place]., [address] Blood Venous blood specimen / Unknown 01/21/2025 5:28 PM CDT 01/21/2025 5:37 PM CDT us Jalen DYER LAB BLOOD ORDERABL ES Final Result BERNIE REAGAN [address] [facility] Department [place] [address] from Last 3 Months Insurance [facility] Care Teams Crew Car Driver Relationship Specialty Start Date End Date Hayden Carrillo MD [address] [place] [address] PCP - General Family Medicine 12/24/23
--- OUTSIDE RECORDS SUMMARY | 2025-02-04 14:12 | XMS_ITS | Clinical Summary ---
Author Organization [facility] Address [facility] [place] [address] Care Team Providers Care Duplex Trimmer Name Role Phone Hayden Carrillo MD Primary Care Provider [phone] Allergies Active Allergy Reactions Criticality Noted Date [...] drink = 0.6 oz pur e alcohol) [facility] Utilities Answer Date Recorded In the past 12 months has [employer], gas, oil, or water company threatened [...] any time in the past [address] [facility], were you homeless or living in a custodial (including now)? 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 Last Filed Vital Signs Vital Sign Reading [...] Colonoscopy (10 Years) 1973 Annual Physical 1976 Hepatitis C 1991 DTaP, Tdap and Td Vaccines ( 1 - Tdap) 1992 Hepatitis B Vaccines (1 of 3 - 19+ 3-dose series) 1992 Zoster Vaccines (1 of 2) 2023 COVID-19 Vaccine (4 - 2023-2 5 season) 2024 10/14/2021, 02/12/2021, 01/22/2021 PHQ-2 (Physician [place]) 11/04/2024 Meningococcal B Vaccine Aged Out No l onger eligible based on patient's age to complete this topic Meningococcal Vaccine Aged Out No иван david eligible based on patient's age to complete this topic Pneumococcal Vaccine: Pediatrics (0 to 5 Years) and At-Risk Patients (6 to 64 Years) Aged Out No longer eligible b ased on patient's age to complete this topic RSV Immunizations Under 20 Months Aged Out No longer eligible b ased on patient's age to complete this topic Goals Goal Patient Goal Type Associated Problems Recent Progress Patient-Stated? Author Health - patient able to perform ADLs independently Lifestyle No Jamee Irwin, RN Medical Devices Implanted Type Area Sub Master Device Identifier Shelf Expiration Date Model / Serial / Lot Stent Ureteral Madison Sci Contour 7fr X 28cm - [id number] Implanted:Qty : 1 on 03/24/2024 by Saul Youssef MD at [facility] Stent Right: Ureter Agilence NICA [id number] 07/10/2024 [id number] / / [id number] [facility] Advance Directives * Full Code (Latest Code Status on File) Date Activated Date Inactivated Comments 03/23/2024 2:59 PM 03/25/2024 12:26 PM Care Teams Duplex Trimmer Relationship Specialty Start Date End Date Hayden Carrillo MD [address] [place] [phone] PCP - General FAMILY PRACTICE 04/04/20
--- OUTSIDE RECORDS SUMMARY | 2025-02-04 14:12 | XMS_ITS | Referral Summary ---
Author Organization [facility] Address [address] [place] [address] Care Team Providers Care Health Analyst Name Role Phone Hayden Carrillo MD Primary Care Provider Encounters Date Type Department Care Team Description 01/21/2025 5:41 PM CDT - 01/21/2025 7:27 PM CDT Emergency [facility] [address] [place] [address] Kidney stone (Primary Dx) Discharge Disposition: Discharge to home or self care from Last 3 Months Allergies Active Allergy Reactions Criticality Noted Date [...] wide field photographs, okay to follow in [facility] or locally. Call immediately if any worsening [...] Optos photos and FA obtained earlier today. 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 Pain rated 4/10. Hx kidney stones. TECHNIQUE: [...] Stew Mooney M.D. KT: KT Report ID: [id number] Reading Location: [place] [address] Procedure Note Stew Mooney MD - 01/21/2025 EXAM DESCRIPTION: CT ABDOMEN PELVIS WO CONTRAST REASON FOR STUDY: Abdominal/flank pain, stone suspected reports left flank pain which radiates to suprapubic x 2 days whichworsened FEDERAL MEDIATOR. Pain rated 4/10. Hx kidney stones. TECHNIQUE: [...] Stew Mooney M.D. KT: KT Report ID: [id number] Reading Location: [place] [address] PROCEDURES Final Result * Urinalysis reflex to microscopic and culture Urine (01/21/2025 5:32 PM CDT) Color, ur Yellow Yellow Comment:Testing performed by : [address] [address] Clarity, ur Clear Clear BERNIE REAGAN Comment:Testing performed by : [address] [address] Specific gravity, ur 1.023 1.003 - 1.030 BERNIE REAGAN Comment:Testing performed by : [address] [place] [address] pH, urine 6.0 BERNIE Comment: Interpretive Data U rine pH is affected by diet, medications, systemic acid-base disturbances, and renal tubular function. pH may affect urinary stone formation. For example, urine pH below 6.0 may help reduce the tendency for calcium phosphate stones and pH greater than 6.0 may reduce the tendency for uric acid stone formation. Source: [facility] TelemetryWeb Current Interpretive Data was last revised on 2017 Testing performed by: [facility], [address] [place] [address], [place]., [address] Protein, ur ql Negative Negative BERNIE Comment:Testing performed by : [address], [place]., [address] Glucose, ur ql Negative Negative BERNIE Comment:Testing performed by : [address], [place]., [address] Ketones, ur Negative Negative BERNIE Comment:Testing performed by : [address], [place]., [address] Bilirubin, ur Negative Negative BERNIE Comment:Testing performed by : [address], [place]., [address] Blood, ur Negative Negative BERNIE Comment:Testing performed by : [address] [address] Urobilinogen, ur <2.0 <2.0 mg/dL BERNIE Comment:Testing performed by : [address] [address] Nitrite, ur Negative Negative BERNIE Comment:Testing performed by : [address] [address] Leukocyte esterase, ur Negative Negative BERNIE Comment:Testing performed by : [address], [place]., [address] UA reflex comment Reflex conditions for microscopic UA and culture not met. BERNIE Comment:Testing performed by : [address], [place]., [address] Urine 01/21/2025 5:32 PM CDT 01/21/2025 5:38 PM CDT us Adebowale Tolulade Kwasida PA LAB MICROBIOLOGY - GENERAL ORDERABLES Final Result Performing Organization Address City/[facility]/ZIP Co de Phone Number BERNIE [address] [place] [address] * eGFR (01/21/2025 5:28 PM CDT) eGFR [...] was last reviewed 2021. Testing performed by: [address] [address] Blood 01/21/2025 5:28 PM CDT 01/21/2025 5:37 PM CDT Jalen Villalpandoda PA LAB BLOOD ORDERABL ES Final Result BERNIE [facility] [place] [address] * Differential, auto (01/21/2025 5:28 PM CDT) Neutrophil abs 3.1 1.5 - 6.5 K/cumm Comment:Testing performed by : [address] [address] Imm gran abs 0.0 0.0 - 0.1 K/cumm BERNIE Comment:Testing performed by : [facility], [address] [place] [address]., [address] Lymphocyte abs 1.9 0.8 - 3.3 K/cumm BERNIE Comment:Testing performed by : [address] [address] Monocyte abs 0.6 0.2 - 0.8 K/cumm BERNIE Comment:Testing performed by : [address] [address] Eosinophil abs 0.2 0.0 - 0.5 K/cumm [facility] Comment:Testing performed by : [address] [address] Basophil abs 0.1 0.0 - 0.1 K/cumm [facility] Comment:Testing performed by : [address] [address] Neutrophil pct 53.2 % [facility] Comment: Interpretive Data Percent cell count reference ranges are not reported, since discordance with absolute values may lead to misinterpretation of CBC data. Current Interpretive Data was last revised on 2018. Testing performed by: [address] [address] Imm gran pct 0.2 % [facility] Comment: Interpretive Data Percent cell count reference ranges are not reported, since discordance with absolute values may lead to misinterpretation of CBC data. Current Interpretive Data was last revised on 2018. Testing performed by: [address] [address] Lymphocyte pct 32.9 % [facility] Comment: Interpretive Data Percent cell count reference ranges are not reported, since discordance with absolute values may lead to misinterpretation of CBC data. Current Interpretive Data was last revised on 2018. Testing performed by: [address] [address] Monocyte pct 9.5 % [facility] Comment: Interpretive Data Percent cell count reference ranges are not reported, since discordance with absolute values may lead to misinterpretation of CBC data. Current Interpretive Data was last revised on 2018. Testing performed by: [address] [place] [address] Eosinophil pct 3.2 % BERNIE REAGAN Comment: Interpretive Data Percent cell count reference ranges are not reported, since discordance with absolute values may lead to misinterpretation of CBC data. Current Interpretive Data was last revised on 2018. Testing performed by: [address] [address] Basophil pct 1.0 % BERNIE REAGAN Comment: Interpretive Data Percent cell count reference ranges are not reported, since discordance with absolute values may lead to misinterpretation of CBC data. Current Interpretive Data was last revised on 2018. Testing performed by: [address] [address] Blood 01/21/2025 5:28 PM CDT 01/21/2025 5:37 PM CDT us Jalen DYER LAB BLOOD ORDERABL ES Final Result BERNIE [facility]2 [facility] [place] [address] * (ABNORMAL) CBC with auto differential (01/21/2025 5:28 PM CDT) WBC 5.9 3.8 - 9.9 K/cumm Comment:Testing performed by : [address] [address] Hgb 14.6 13.0 - 17.5 g/dL BERNIE REAGAN Comment:Testing performed by : [address] [address] Hct 42.4 38.9 - 50.3 % BERNIE REAGAN Comment:Testing performed by : [address] [address] Plt 252 150 - 400 K/cumm BERNIE REAGAN Comment:Testing performed by : [address] [address] MPV 8.7(L) 9.1 - 12.3 fL BERNIE REAGAN Comment:Testing performed by : [address] [address] RBC 4.75 4.30 - 5.80 M/cumm BERNIE REAGAN Comment:Testing performed by : [address] [address] MCV 89.3 81.3 - 96.4 fL BERNIE Comment:Testing performed by : [address] [address] MCH 30.7 27.1 - 33.3 pg BERNIE REAGAN Comment:Testing performed by : [address] [address] MCHC 34.4 32.3 - 35.7 g/dL BERNIE Comment:Testing performed by : [address], [address] RDW CV 12.8 11.1 - 14.9 % BERNIE Comment:Testing performed by : [address] [address] RDW SD 41.9 35.7 - 48.1 fL BERNIE Comment:Testing performed by : [address] [address] NRBC abs 0.00 0.00 - 0.01 K/cumm BERNIE Comment:Testing performed by : [address] [address] Blood Venous blood specimen / Unknown 01/21/2025 5:28 PM CDT 01/21/2025 5:37 PM CDT Jalen DYER LAB BLOOD ORDERABL ES Final Result BERNIE [address] [facility] Department of Laboratories [place], [place] [id number] * Lipase (01/21/2025 5:28 PM CDT) Lipase 45 10 - 99 Units/L Comment:Testing performed by : [address] [address] Blood Venous blood specimen / Unknown 01/21/2025 5:28 PM CDT 01/21/2025 5:37 PM CDT Jalen DYER LAB BLOOD ORDERABL ES Final Result BERNIE [address] [facility] [place] [address] * Comprehensive metabolic panel (01/21/2025 5:28 PM CDT) Sodium 140 135 - 145 mmol/L Comment:Testing performed by : [address] [address] Potassium, pl 4.0 3.3 - 4.9 mmol/L BERNIE Comment:Testing performed by : [address] [address] Chloride 103 97 - 110 mmol/L BERNIE Comment:Testing performed by : [address] [address] CO2 29 22 - 32 mmol/L BERNIE Comment:Testing performed by : [address] [address] Anion gap 8 2 - 15 mmol/L BERNIE Comment:Testing performed by : [address] [address] BUN 10 6 - 25 mg/dL BERNIE Comment:Testing performed by : [address] [address] Creatinine 1.20 0.80 - 1.30 mg/dL BERNIE Comment:Testing performed by : [address] [address] Glucose 111 70 - 199 mg/dL BERNIE [...] classification and Diagnosis of Diabetes Diabetes Care 202; 46: S19-S40. Current interpretive data was last revised 2022. Testing performed by: [facility], [address] [place] [address]., [address] Calcium 10.0 8.5 - 10.3 mg/dL BERNIE Comment:Testing performed by : [address] [address] Bilirubin, total 0.8 0.1 - 1.2 mg/dL BERNIE Comment:Testing performed by : [address] [address] Protein, pl 7.8 6.5 - 8.5 g/dL BERNIE Comment:Testing performed by : [address] [address] Albumin 4.6 3.5 - 5.0 g/dL BERNIE Comment:Testing performed by : [address] [address] Alk phos 84 40 - 130 Units/L BERNIE Comment:Testing performed by : [address] [address] ALT 38 7 - 55 Units/L BERNIE Comment:Testing performed by : [address] [address] AST 25 10 - 50 Units/L [facility] Comment:Testing performed by : [address] [address] Blood Venous blood specimen / Unknown 01/21/2025 5:28 PM CDT 01/21/2025 5:37 PM CDT Jalen DYER LAB BLOOD ORDERABL ES Final Result [facility] [address] [facility] Department [place] [address] from Last 3 Months Insurance [facility] Care Teams Health Analyst Relationship Specialty Start Date End Date Hayden Carrillo MD [address] [place] [address] PCP - General Family Medicine 12/24/23
--- OUTSIDE RECORDS SUMMARY | 2025-02-04 14:13 | XMS_ITS | CONTINUITY OF CARE DOCUMENT ---
Author Name erick suarez Address Unknown Organization [facility] Address [address] [place] [address] Phone [phone] Care Team Providers Care Woodyard Operator Name Role Phone Agusto Harvey DO Unavailable Santiago Desouza DO Unavailable [phone] PROBLEMS Condition Status Date Provider Notes Cardiovascular screening active Altagracia Marie INS[employer]ANCE PROVIDERS Payer name Policy type / Coverage type [place] red constitution party ID SELF PAY TREATMENT PLAN Date Name CT, Coronary Calcium Score HISTORY OF PROCEDURES Procedure Date Procedure Name Provider Procedure Notes S tatus CT- Coronary CA score Agusto Harvey DO completed
--- OUTSIDE RECORDS SUMMARY | 2025-02-04 14:13 | XMS_ITS | Encounter Summary ---
Author Organization [facility] Address [address] [place] [address] Care Team Providers Care Closing Machine Operator Name Role Phone Unavailable Primary Care Provider Unavailabl e Encounter Details Date Type Department Care Team (Late st Contact Info) Description 02/02/2025 External Device Data ST[facility] ABSTRACTION Provider, Abstract NO ADDRESS ON FILE Social History Tobacco Use Types Packs/Day Years Used Date Smoking Tobacco: Never Assessed Sex and Gender Information Value Date Recorded Sex Assigned at Not on file Legal Sex Male 12:14 PM CDT Gender Identity Not on file Sexual Orientation Not on file documented as of this encounter Plan of Treatment Upcoming Encounters Date Type Department Care Team (Late st Contact Info) Description 02/08/2025 10:00 AM CDT Appointment [facility] Services [address], [address] [place] [address] documented as of this encounter Visit Diagnoses Not on filedocumented in this encounter
--- OUTSIDE RECORDS SUMMARY | 2025-02-04 14:13 | XMS_ITS | Clinical Summary ---
Author Organization [facility] Address [address] [place] [address] Care Team Providers Care Stonemason Apprentice Name Role Phone Unavailable Primary Care Provider Unavailabl e Source Comments [facility],non-owned Affiliates and Associated Physician Practices is amultiple site organization consisting of ambulatory clinics and hospital sitesin [place], [place], [place] and [place]. This disclosure is being madepursuant to the Care Everywhere program and may not contain all information available regarding this patient. Last updated 18.[facility] Allergies No known active allergies Social History Tobacco Use Types Packs/Day Years Used Date Smoking Tobacco: Never Assessed Sex and Gender Information Value Date Recorded Sex Assigned at Not on file Gender Identity Not on file Sexual Orientation Not on file Last Filed Vital Signs Vital Sign Reading Time Taken Comments Blood Pressure - - Pulse 72 10/31/2020 1:50 PM PLANT BREEDER SCIENTIST Temperature - - Respiratory Rate - - Oxygen Saturation - - Inhaled Oxygen Concentration - - Weight 84.8 kg (187 lb) 10/31/2020 1:50 PM PLANT BREEDER SCIENTIST Height 179.1 cm (5' 10.5 ) 10/31/2020 1:50 PM CS T Body Mass Index 26.45 10/31/2020 1:50 PM PLANT BREEDER SCIENTIST Plan of Treatment Health Maintenance Due Date [...] to complete this topic MENINGOCOCCAL (Group B) VACC INE SHARED DECISION-MAKING Aged Out No longer eligibl e based on patient's age to complete this topic MENINGOCOCCAL GROUPS A/C/Y/W VACCINE Aged Out No longer eligible b ased on patient's age to complete this topic PNEUMOCOCCAL VACCINE Aged Out No long er eligible based on patient's age to complete this topic
--- OUTSIDE RECORDS SUMMARY | 2025-02-04 14:13 | XMS_ITS | Encounter Summary ---
Author Organization [facility] Address [address] [address] Care Team Providers Care Oil Field Equipment Mechanic Supervisor Name Role Phone Unavailable Primary Care Provider Unavailabl e Encounter Details Date Type Department Care Team (Late st Contact Info) Description 08/12/2024 Lab Requisition [facility] - DermPath Lab [address] [place] [address] Letty Almanza MD [address] [place] [phone] Dermatitis, unspecified Social History Tobacco Use [...] AM CDT) Case Report Dermatopathology Report Case: [id number] Authorizing Provider: Letty Almanza MD Collected: 08/12/2024 12:00 AM Ordering Location: [facility] - Received: 08/13/2024 12:50 PM DermPath Lab Pathologist: Padma Tee MD Specimen: Skin, right forearm 3:31 PM CDT DERMATOPATHOLOGY LABORATORY Final Diagnosis Specimen A. 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 The specimen consists of a shave biopsy measuring 7x7x2 mm. Jar 0. 3:31 PM [facility] DERMATOPATHOLOGY LABORATORY Microscopic Description Specimen A. SKIN, [...] excluded. Clinical correlation is recommended. 3:31 PM [facility] DERMATOPATHOLOGY LABORATORY Disclaimer An external and internal positive and negative controls are appropriate for the histochemical, immunohistochemical and immunofluorescence stain(s) in this case (if any), except where stated explicitly. The performance characteristics of the stain(s) cited in this report were developed and its performance characteristic determined by the Dermatopathology Laboratory at [facility], directed by Dr. Calvin Ayers. These tests need not be, and therefore are not, approved by the [place] Food and Drug Administration. The tests are used for clinical purposes. Billing Codes Specimen Charges Stain Charges 24795 1 45110 15508 1 1 3:31 PM T DERMATOPATHOLOGY LABORATORY Embedded Images 3:31 PM [facility] DERMATOPATHOLOGY LABORATORY Pathology/Cytolog y TISSUE SPECIMEN FROM SKIN / Unknown 08/12/2024 08/13/2024 12:50 PM CDT Letty Almanza MD LAB - PATHOLOGY/CYTO LOGY ORDERABLES DERMATOPATHOLOGY LABORATORY [facility] - Department of Dermatology [facility] Specialized Medicine [address] [place] [address], [address] [phone] documented in this encounter Visit Diagnoses Diagnosis Dermatitis, unspecified documented in this encounter
--- OUTSIDE RECORDS SUMMARY | 2025-02-04 14:13 | XMS_ITS | Clinical Summary ---
Author Organization [facility] Address [address] [place] [place] [address] Care Team Providers Care Buckle Attaching Machine Operator Name Role Phone Unavailable Primary Care Provider Unavailabl e Encounters Date Type Department Care Team Description 02/02/2025 External Device Data STL ABSTRACTION Provider, Abstract 02/02/2025 External Device Data STL ABSTRACTION Provider, Abstract 02/02/2025 External Device Data STL ABSTRACTION Provider, Abstract 02/01/2025 2:00 PM CDT Telephone [facility] Medicine at the [facility] [address] [place] [address] Flor Garcia, RN [facility] from Last 3 Months Social History Tobacco Use Types Packs/Day Years Used Date Smoking Tobacco: Never Assessed Sex and Gender Information Value Date Recorded Sex Assigned at Not on file Legal Sex Male 12:14 PM CDT Gender Identity Not on file Sexual Orientation Not on file Plan of Treatment Upcoming Encounters Date Type Department Care Team (Late st Contact Info) Description 02/08/2025 10:00 AM CDT Appointment [facility] [address] [place] [address] Health Maintenance Due Date Last Done Comments HEPATITIS B VACCINES (1 of 3 - 19+ 3-dose series) 07/06 FIT-DNA Q 3 years 2018 FIT/FOBT Q 1 year 2018 Flex Sig/CT Colonography Q 5 years 2018 ZOSTER VACCINE (1 of 2) 2023 INFLUENZA VACCINE (#1) 2024 08/29/2019 DTAP/TDAP/TD VACCINES (2 - Td or Tdap) 06/25/2026 COLORECTAL SCREENING 07/18/2031 07/18/2021 Colorectal Cancer Screening 07/18/2031
--- OUTSIDE RECORDS SUMMARY | 2025-02-04 14:13 | XMS_ITS | Continuity of Care Document ---
Author Organization [facility] Address [address] [place] [address] Phone Care Team Providers Care Development Vice President Name Role Phone Hayden Carrillo MD Unavailable Unavailable Allergies, Adverse Reactions, Alerts Substance Reaction Status Criticality morphine Active No Information Procedures Procedure Date PREV VISIT, EST, AGE 40-64 OFFICE/OUTPATIENT VISIT, EST OFFICE/OUTPATIENT VISIT, EST OFFICE/OUTPATIENT VISIT, EST OFFICE/OUTPATIENT VISIT, EST OFFICE/OUTPATIENT VISIT, EST OFFICE/OUTPATIENT VISIT, EST PREV VISIT, EST, AGE 40-64 OFFICE/OUTPATIENT VISIT, EST OFFICE/OUTPATIENT VISIT, EST PREV VISIT, NEW, AGE 40-64 Advance Directives Directive Yes / No Effective Date File Name No Information Encounters Encounter Description Practice Location Reason(s) For Visit Diagnoses Date Provider Providers Copied on Encounter PREV VISIT, EST, AGE 40-64 [facility], [address], [place], [place], [id number], [place] tel:[phone] [facility] Medicine physical (chief complaint) Encounter for general adult medical exam w abnormal findingsObstructive sleep apnea (adult) (pediatric)Essentia l (primary) hypertensionRenal stoneMixed hyperlipidemiaRash 5 Gerardo Blake. [address], [place], [place], [address] , [place]. tel:[phone] OFFICE/OUTPA TIENT VISIT, EST [facility], [address], [place], [place], [id number], [place] tel:[phone] [facility] sleep apnea1 (chief complaint) renal stone1 (chief complaint) skin (chief complaint) Renal stoneObstructive Sleep Apnea HypopneaStage III chronic renal diseaseRashHypergly cemia 4 Carrillo Hayden. [address], [place], [place], [address] , [place]. tel:[phone] OFFICE/OUTPA TIENT VISIT, [facility], [address], [place], [place], [address], [place] tel:[phone] [facility] cough1 (chief complaint) skin1 (chief complaint) Cellulitis of right upper limbAcute cough 4 Carrillo Hayden. [address], [place], [place], [address] , [place]. tel:[phone] OFFICE/OUTPA TIENT VISIT, [facility], [address], [place], [place], [address], [place] tel:[phone] [facility] sleep apnea1 (chief complaint) palpitatio n1 (chief complaint) skin (chief complaint) liver cyst1 (chief complaint) Liver diseaseObstructive Sleep Apnea HypopneaPalpitation sStaphylococcus aureus infection 4 Carrillo Hayden. [address], [place], [place], [address] , [place]. tel:[phone] OFFICE/OUTPA TIENT VISIT, [facility], [address], [place], [place], [address], [place] tel:[phone] [facility] sleep apnea1 (chief complaint) palpitatio n1 (chief complaint) plantar1 (chief complaint) liver cyst1 (chief complaint) Liver diseaseObstructive sleep apnea (adult) (pediatric)Other chest painPlantar fascial fibromatosis 3 Carrillo Hayden. [address], [place], [place], [address] , [place]. tel:[phone] OFFICE/OUTPA TIENT VISIT, [facility], [address], [place], [place], [address], [place] tel:[phone] [facility] Medicine HLP (chief complaint) bili1 (chief complaint) sleep apnea1 (chief complaint) chest pain1 (chief complaint) foot pain1 (chief complaint) left side abd pain1 (chief complaint) Plantar fascial fibromatosisOther chest painLiver diseaseMixed hyperlipidemiaDisor patrice of bilirubin metabolism, unspecifiedObstruct efe sleep apnea (adult) (pediatric)Upper abdominal pain 3 Gerardo Blake. [address], [place], [place], [address] , [place]. tel:[phone] PREV VISIT, EST, AGE 40-64 [facility], [address], [place], [place], [id number], [place] tel:[phone] [facility] Medicine physical (chief complaint) Encounter for general adult medical exam w abnormal findingsPrimary central sleep apneaLiver diseaseRadiculopath y, cervical region 3 Gerardo Blake. [address], [place], [place], [address] , [place]. tel:[phone] OFFICE/OUTPA TIENT VISIT, EST [facility], [address], [place], [place], [address], [place] tel:[phone] [facility] Medicine sick1 (chief complaint) sleep apnea1 (chief complaint) radiculopa thy1 (chief complaint) liver lesion1 (chief complaint) Viral infectionPrimary central sleep apneaLiver diseaseRadiculopath y, cervical region 2 Gerardo Blake. [address], [place], [place], [address] , [place]. tel:[phone] PREV VISIT, NEW, AGE 40-64 [facility], [address], [place], [place], [address], [place] tel:[phone] [facility] Medicine physical (chief complaint) Encounter for general adult medical examination without abnormal findings 1 Gerardo Blake. [address], [place], [place], [address] , [place]. tel:[phone] Family History Family Member Type Diagnosis Age At Onset Mother Problem of 66 due to vaginal CA Father Problem Alive and well Maternal grandfather Problem colon CA 70s Sister Problem Alive and well Payers Payer name Insurance type Covered republican ID Adeel desai(s) Marito [id number] Social History Type Description Quantity Date Captured Comments Alcohol Use Details wine Caffeine Use Details Unknown Tobacco Use Status Current non-smoker Smoking Status Never smoker Sex Male Vital Signs Date / Time: Height Weight BMI Pulse Rate Blood Pressure Temperature Respiratory Rate Body Surface Area Head Circumference BMI percentile Pulse Ox Inhaled Ox 3:26 PM 69.00 in 192.40 lbs 28.4 1 kg/m eter (2) 88 /min 140/88 mm[Hg] 98.5 F 16 /min Chief Complaint And Reason For Visit From encounter dated 02/03/2025 15:15'. physical (chief complaint). Description: Pt needs annual physical Pt c/o acute left flank pain since two weeks ago Pt denies any urinary symptoms. Pt went to ER and he had CT done which showed 1 mm renal stone and also left kidney cyst. Pt followed up with nephrology and he had renal ultrasound which showed cyst and nephrology referred him to urology who is not concerned about the renal cyst and he ordered another CT scan and he has not done it yet .Pt want 2nd opinion. he is on flomax for the renal stone Pt actually has vague left flank pain for several years with negative work up in the past . Pt also has sleep apnea Pt doing well with cpap ,Pt feels more energy and less snoring Pt also has chronic open skin sores and he has been seeing dermatology for long time. His skin biopsy showed ? lupus? Plan Of Treatment Date Type Action Status Referral Ordered: COLONOSCOPY AND BIOPSY ordered Referral Ordered: MRI ABDOMEN W/O & W/DYE ordered Referral Ordered: Nephrology (related to Stage III chronic renal disease) ordered Referral Ordered: Referrals: Nephrology. Evaluate and treat ordered Referral Ordered: Dermatology (related to Staphylococcus aureus infection) ordered Referral Ordered: Referrals: Dermatology. Evaluate and treat ordered Referral Ordered: [facility] -[facility] Service Providers : Invasive Manager (related to Plantar fascial fibromatosis) ordered Referral Referred To: [facility] [address] [facility]
[place], [place], [phone] Ordered: Referrals: Podiatric Medicine & Surgery Service Providers : Invasive Manager. [facility]. Evaluate and treat ordered Referral Ordered: CT ABDOMEN&PELVIS W/CONTRAST ordered Referral Ordered: SLEEP STUDY, ATTENDED ordered Referral Referred To: Santiago Desouza [address] [place] [address], [phone] Ordered: Referrals: Santiago Desouza. Evaluate and treat ordered Referral Ordered: MOTOR NERVE CONDUCTION TEST ordered History Of Present Illness Encounter Date Complaint History Of Prese nt Illness physical Pt needs annual physical Pt c/o acute left flank pain since two weeks ago Pt denies any urinary symptoms. Pt went to ER and he had CT done which showed 1 mm renal stone and also left kidney cyst. Pt followed up with nephrology and he had renal ultrasound which showed cyst and nephrology referred him to urology who is not concerned about the renal cyst and he ordered another CT scan and he has not done it yet .Pt want 2nd opinion. he is on flomax for the renal stone Pt actually has vague left flank pain for several years with negative work up in the past . Pt also has sleep apnea Pt doing well with cpap ,Pt feels more energy and less snoring Pt also has chronic open skin sores and he has been seeing dermatology for long time. His skin biopsy showed ? lupus? skin Pt did see irina casey and he told me the nursing specialist told him the skin rash was due to dry skin He does not agree with such diagnosis Pt thinks that his skin issue is due to renal issue. He states that as soon as his renal stone was removed, his rash resolved He is concerned for any intraparenchymal renal disease. renal stone1 Pt had obstructe d right [...] renal cyst. Pt wants to see nephrology sleep apnea1 pt has sleep bed manager ea. pt has been using cpap nightly and he notices that he feels more tired in the morning with more apnea event at night despite using cpap recently. He was doing well with cpap until about two weeks ago . skin1 Pt has recurrent open skin sores with some clear drainage without itching for one year Pt notices mild pain sometimes when the spots flare up. Pt denies any sick contact. Pt denies any fever Pt is on doxycycline which seems to make the area less red but they still persists cough1 Pt states that h e coughed this morning and he saw some worm like thing under microscope in his phlegm. Pt denies any hemoptysis. Pt denies any sob. pt denies any recurrent cough liver cyst1 Pt has history o f liver cyst. pt has mild left abdominal pain. pt had negative CT scan Pt no longer has any pain now skin Pt has recurrent open skin sores with some clear drainage without itching for one year Pt notices mild pain sometimes when the spots flare up. Pt denies any sick contact. Pt denies any palpitation1 Pt has history o f palpitation with atypical chest pain Pt saw cardiology and he had negative stress test and cardiac echo and event monitor. he was cleared by cardiology he also had negative calcium score test He states that his palpitation and chest pain resolved since using cpap sleep apnea1 Pt has sleep bed manager ea Pt has been using cpap since September of last year and he feels great pt feels more energy and better rest at night. liver cyst1 Pt has liver cys t Pt has not had any abd pian Pt has not done liver Ct yet plantar1 Pt has left foot plantar fasciitis .Pt saw podiatry and he is on voltaren and he is on daily exercise and boot now and his foot pain improved. palpitation1 Pt has intermitt ent palpitation and chest pain, nonexertional related Pt denies any acute chest pain Pt has sonal with cardiology this Saturday sleep apnea1 Pt has moderate and severe sleep apnea with oxygen desaturation sleep apnea1 Pt has history o f sleep apnea Pt does snore at night. Pt had sleep study done 5 years ago which showed mild sleep apnea Pt never used cpap. Pt has been using dental device for the past two years and he wants to use cpap He does feel tired all the time bili1 Pt has borderlin e high bili Pt denies any abd pain or jaundice. HLP Pt has mild HLP Pt is not on any diet left side abd pain1 Pt c/o inter mittent left upper quadrant abd pain with movement for several months Pt denies any GERd, nausea, vomiting Pt c/o sharp pain sometimes Pt denies any postprandial pain foot pain1 Pt c/o left heel pain with radiation of pain to arch of feet, worse in the morning, but gets better with ambulation. Pt has above symptoms for more than 6 months pt denies any heel redness, warmth Pt denies any injury Pt denies any paresthesia or calf pain chest pain1 Pt c/o intermitt ent chest pain and palpitation and some exertional sob frequently. Pt denies any diaphoresis, nausea, vomiting. Pt has not been physically active Pt states that he feels mildly sob when he goes up stairs physical Pt needs annual physical. Pt has intermittent neck pain with left radiculopathy to left arm Pt denies any weakness. Pt states that overall his left radiculopathy and neck pain have not been very bothersome recently Pt has ? cervical disc pathology. Pt is seeing [facility] doctor but no plans for any further work up per patient. He also has sleep apnea but he is not using cpap. Pt denies any fatigue Pt denies any snoring Pt denies any other complaints liver lesion1 Pt recently had CT of abdomen done by [facility] and was told ok per patient. Pt denies any abd pain radiculopathy1 Pt c/o persisten t left arm numbness and tingling with radiculopathy symptoms. Pt had NCS done which showed cervical disc issue Pt was told by [facility] that he needs surgery but he is not interested in any neck surgery Pt states that his left arm symptoms are not bad now. He has mild neck pain intermittently sleep apnea1 Pt has sleep juarez dy done which showed sleep apnea Pt is waiting for cpap sick1 Pt c/o acute ons et of sore throat productive cough for 1.5 weeks. Pt denies any fever, sob. Pt is fully vaccinated for COVID and he had multiple negative home COVID testing since last week Pt received flu shot 2 weeks ago. Pt denies any headache or dysphagia. Pt denies any chest pain physical Pt needs annual physical. Pt [...] Pt denies any sob .Pt went to [facility] ER on 05/31/21 for chest pain and he had negative cardiac enzymes and EKG and he had CT angio of chest, abd and pelvis which showed benign hepatic cyst. Pt denies any exertional chest pain. Pt also has left arm numbness and tingling and weakness. Pt is seeing PCP at [facility] who ordered C spine and left shoulder MRi which he is scheduled for this Saturday. Pt takes flexeril and also mobic but not helping his constant pain around left shoulder and left armpit. Pt had x ray of c spine and left shoulder done which were benign. Instructions Date Instruction Additional Infor mation No Information Assessments Type Assessment Date assessment Encounter for general adult medi layla exam w abnormal findings assessment Obstructive sleep apnea (adult) (pediatric) assessment Essential (primary) hypertension assessment Renal stone assessment Mixed hyperlipidemia assessment Rash Mental Status Date Cognitive Assessment Orientation - [place] ed to time, place, person, situation.
== END 2025-02-04 13:50 | disposition home or self-care (01) ==
LOC: ANHIMG 13:51
PROVIDERS: PCP Emergency Medicine; Visit Provider Urology
DX: N20.1 Calculus of ureter (principal)
CPT/HCPCS: 74018; 74176

== ENCOUNTER 2025-02-19 12:48 | Outpatient (CLI) | payer OTHER, SELFPAY ==
--- NOTE | ~2025-02-19 | MR_ITS ---
EXAMINATION: MR abdomen wo/w con DATE: 02/19/2025 13:52 INDICATION: Left kidney cyst TECHNIQUE: Magnetic resonance imaging (MRI) of the abdomen was performed without and with 18 mL Multi eric intravenous contrast. Sequences included coronal T2-weighted SS-FSE, coronal and axial FS 2D-F IESTA, axial STIR FSE, axial T2-weighted SS-FSE, axial T2-weighted FS SS-FSE, axial diffusion-weighte d SE, axial dual-echo T1-weighted FSPGR, and axial and coronal T1-weighted LAVA. Postcontrast axial T 1-weighted LAVA images were obtained in a time course. Postcontrast coronal T1-weighted LAVA images w ere obtained. COMPARISON: None. FINDINGS: Heart size is normal. No pericardial or pleural effusion. Diffuse hepatic steatosis. There are a few scattered <5 mm T2 hyperintense nonenhancing hepatic cysts. Status post cholecystectomy. No intra or extrahepatic biliary ductal dilation. L, pancreas, bilateral adrenal glands and right kidney are norm al. There are couple T2 hyperintense nonenhancing cysts in the left kidney the larger measuring 2.8 c m. There are couple diverticula along the descending colon without adjacent from trace stranding to s uggest diverticulitis. The visualized portions of bowels are otherwise unremarkable. No pathologicall y enlarged abdominal or upper pelvic lymphadenopathy. Moderate to severe right-sided predominant disc height loss with associated fibrofatty degenerative endplate changes at L5-S1. Mild spondylosis more cephalad lumbar spine. IMPRESSION: 1. Couple simple appearing T2 hyperintense nonenhancing left renal cysts the larger measuring 2.8 cm. 2. Diffuse hepatic steatosis. Reviewed, dictated and finalized at location A. IMPRESSION: 1. Couple simple appearing T2 hyperintense nonenhancing left renal cysts the la rger measuring 2.8 cm. 2. Diffuse hepatic steatosis.
--- OUTSIDE RECORDS SUMMARY | 2025-02-19 12:51 | XMS_ITS | Referral Summary ---
Author Organization [facility] Address [address] [place] [address] Care Team Providers Care Bird Tender Name Role Phone Hayden Carrillo MD Primary Care Provider Encounters Date Type Department Care Team Description 02/09/2025 3:34 AM CDT - 02/09/2025 6:32 AM CDT Emergency [facility] Emergency Department [address] [place] [id number] Teofilo Lugo Jr., MD Left ureteral stone (Primary Dx) Discharge Disposition: Discharge to home or self care 01/21/2025 5:41 PM CDT - 01/21/2025 7:27 PM CDT [facility] Emergency Department [address] [place] [address] Kidney stone (Primary Dx) Discharge Disposition: Discharge [...] by mouth daily 10 capsule 5 Active tamsulosin (FLOMAX) 0.4 mg extended release capsule Take 1 capsule (0.4 mg total) by mouth daily for 10 days 10 capsule 5 Active naproxen (NAPROSYN) 500 mg tablet Take 1 tablet (500 mg total) by mouth 2 (two) times a day with meals 60 tablet 5 Active HYDROcodone-kait taminophen (NORCO) 5-325 mg per tabletIndicatio ns:Pain Take 1 tablet by mouth every 6 (six) hours as needed for pain 25 tablet 5 Active Active Problems Problem Noted Date Diagnosed Date Retinoschisis, 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 Call immediately if any worsening [...] making you feel afraid or unsafe? 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 Sexual Orientation Straight 12/04/2022 8: 26 PM LABORATORY SAMPLER Last Filed Vital Signs Vital Sign Reading Time Taken Comments Blood Pressure 132/93 02/09/2025 5:00 AM CDT Pulse 64 02/09/2025 6:00 AM CDT Temperature 36.7 C (98.1 F) 02/09/2025 3:13 AM CDT Respiratory Rate 20 02/09/2025 6:00 AM CDT Oxygen Saturation 98% 02/09/2025 6:00 AM CDT Inhaled Oxygen Concentration - - Weight 89.1 kg (196 lb 6.9 oz) 02/09/2025 3:13 A M CDT Height 175.3 cm (5' 9 ) 01/21/2025 5:23 PM CDT Body Mass Index 29.01 01/21/2025 5:23 PM CDT Plan of Treatment Not on file Procedures Procedure Name Priority Date/Time Associated Diagnosis Comments CT ABDOMEN PELVIS WO CONTRAST ED 02/09/2025 4:18 AM CDT URINALYSIS, MICROSCOPIC ONLY STAT 02/09/2025 4:14 AM CDT URINALYSIS AND REFLEX TO MICROSCOPIC AND CULTURE STAT 02/09/2025 4:14 AM CDT EGFR STAT 02/09/2025 3:21 AM CDT DIFFERENTIAL AUTO STAT 02/09/2025 3:2 1 AM CDT LIPASE STAT 02/09/2025 3:21 AM CDT COMPREHENSIVE METABOLIC PANEL STAT 02/09/2025 3:21 AM CDT CBC WITH AUTO DIFFERENTIAL STAT 02/09/2025 3:[address] ABDOMEN PELVIS WO CONTRAST ED 01/21/2025 [...] Results * CT Abdomen Pelvis WO Contrast (02/09/2025 4:18 AM CDT) Anatomical Region Laterality Modality Body N/A Computed Tomogra phy 02/09/2025 4:33 AM CDT Narrative 02/09/2025 4:39 AM CDT EXAM DESCRIPTION: CT ABDOMEN PELVIS WO CONTRAST REASON FOR STUDY: left flank pain, colicky, h/o mult kidney stones Pt c/o pain in left flank radiating around to left lower quadrant, pt states pain started approx 1 hour ago, pt states has history of kidney stones and the pain feels similar, pt also states I have a cyst in my left kidney , pt states when urinating its coming out in dribbles , pt states may be constipated as well TECHNIQUE: CT scan of the abdomen and pelvis performed without intravenous and without oral contrast using helical scanning technique. Reconstructed coronal and sagittal MPR images reviewed. All images stored on PACS. Automated exposure control was used as a dose optimization technique for this examination. COMPARISON: 01/21/2025 FINDINGS: LOWER CHEST: Lung bases are clear. Heart size normal. No effusion. LIVER/BILIARY: Moderate hepatic steatosis. Biliary tree normal in caliber. GALLBLADDER: Absent. SPLEEN: Normal. PANCREAS: Normal. ADRENAL GLANDS: Normal. KIDNEYS/URINARY TRACT: 3 mm left UVJ calculus with moderate hydroureteronephrosis. Left renal cyst. No other urolithiasis is seen. Bladder contracted. GI: Stomach and small bowel appear normal. Scattered noninflamed colonic diverticula. Appendix not seen. OTHER ABDOMINAL/PELVIS: Major vascular structures are normal in caliber. No enlarged lymph node or free fluid. MSK: Moderate L5-S1 disc disease. BODY WALL: Unremarkable. IMPRESSION: 3 mm obstructing left UVJ calculus with moderate hydroureteronephrosis. THIS IS AN ELECTRONICALLY VERIFIED FINAL REPORT 02/09/2025 4:39 AM - Electronically signed by Francisco Gonzalez M.D. AR: [employer] Report ID: [id number] Reading Location: [place] [address] Procedure Note Francisco Gonzalez MD - 02/09/2025 EXAM DESCRIPTION: CT ABDOMEN PELVIS WO CONTRAST REASON FOR STUDY: left flank pain, colicky, h/o mult kidney stones Pt c/o pain in left flank radiating around to left lower quadrant, ptstates pain started approx 1 hour ago, pt states has history of kidney stones andthe pain feels similar, pt also states I have a cyst in my left kidney , pt states when urinating its coming out in dribbles , pt states may be constipated as well TECHNIQUE: CT scan of the abdomen and pelvis performed without intravenousand without oral contrast using helical scanning technique. Reconstructed coronal and sagittal MPR images reviewed. All images stored on PACS.Automated exposure control was used as a dose optimization technique for this examination. COMPARISON: 01/21/2025 FINDINGS: LOWER CHEST: Lung bases are clear. Heart size normal. No effusion. LIVER/BILIARY: Moderate hepatic steatosis. Biliary tree normal incaliber. GALLBLADDER: Absent. SPLEEN: Normal. PANCREAS: Normal. ADRENAL GLANDS: Normal. KIDNEYS/URINARY TRACT: 3 mm left UVJ calculus with moderate hydroureteronephrosis. Left renal cyst. No other urolithiasis is seen. Bladder contracted. GI: Stomach and small bowel appear normal. Scattered noninflamed colonic diverticula. Appendix not seen. OTHER ABDOMINAL/PELVIS: Major vascular structures are normal in caliber.No enlarged lymph node or free fluid. MSK: Moderate L5-S1 disc disease. BODY WALL: Unremarkable. IMPRESSION: 3 mm obstructing left UVJ calculus with moderate hydroureteronephrosis. THIS IS AN ELECTRONICALLY VERIFIED FINAL REPORT 02/09/2025 4:39 AM - Electronically signed by Francisco Gonzalez M.D. AR: [facility] Report ID: [id number] Reading Location: [place] [address] us Teofilo Lugo Jr., MD IMG CT PROCEDURES Final Result * (ABNORMAL) Urinalysis reflex to microscopic and culture Urine (02/09/2025 4:14 AM CDT) Color, ur Yellow Yellow Comment:Testing performed by : [address] [address] Clarity, ur Clear Clear BERNIE Comment:Testing performed by : [address] [address] Specific gravity, ur 1.008 1.003 - 1.030 BERNIE Comment:Testing performed by : [address] [address] pH, urine 5.5 BERNIE Comment: Interpretive Data U rine pH is affected by diet, medications, systemic acid-base disturbances, and renal tubular function. pH may affect urinary stone formation. For example, urine pH below 6.0 may help reduce the tendency for calcium phosphate stones and pH greater than 6.0 may reduce the tendency for uric acid stone formation. Source: [employer] Current Interpretive Data was last revised on 2017 Testing performed by: [address] [address] Protein, ur ql Negative Negative BERNIE Comment:Testing performed by : [address] [address] Glucose, ur ql Negative Negative BERNIE Comment:Testing performed by : [address] [address] Ketones, ur Negative Negative BERNIE Comment:Testing performed by : [address] [place] [address] Bilirubin, ur Negative Negative BERNIE Comment:Testing performed by : [address], [place]., [address] Blood, ur 1+(A) Negative BERNIE REAGAN Comment:Testing performed by : [address], [place]., [address] Urobilinogen, ur <2.0 <2.0 mg/dL BERNIE REAGAN Comment:Testing performed by : [address], [place]., [address] Nitrite, ur Negative Negative BERNIE REAGAN Comment:Testing performed by : [address], [place]., [address] Leukocyte esterase, ur Negative Negative BERNIE Comment:Testing performed by : [address], [place]., [address] UA reflex comment Reflex to microscopic UA will be performed. BERNIE Comment:Testing performed by : [address], [place]., [address] Urine 02/09/2025 4:14 AM CDT 02/09/2025 4:17 AM CDT Teofilo Lugo Jr., MD LAB MICROBIOLOGY - GENE RAL ORDERABLES Final Result BERNIE [address] [facility] Department of Laboratories [place], [place] [id number] * (ABNORMAL) Urinalysis, microscopic only (02/09/2025 4:14 AM CDT) WBC, ur 0-5 0 - 5 /HPF Comment:Testing performed by : [address], [place]., [address] RBC, ur 3-5(A) 0 - 2 /HPF BERNIE REAGAN Comment:Testing performed by : [address], [place]., [address] Mucous, ur Present(A) BERNIE REAGAN Comment:Testing performed by : [address], [place]., [address] Culture Reflex Comment Reflex conditions for urine culture (WBC >10) not met. BERNIE REAGAN Comment:Testing performed by : [facility], [address] [place] [address]., [address] Urine 02/09/2025 4:14 AM CDT 02/09/2025 4:17 AM CDT Teofilo Lugo Jr., MD LAB URINE ORDERABLES Fi nal Result Performing Organization Address [facility] de Phone Number [place] [phone] [facility] [place] [place] [address] * eGFR (02/09/2025 3:21 AM CDT) eGFR 78 >=60 mL/min/1. 73 m2 Comment: Interpretive Data [...] was last reviewed 2021. Testing performed by: [facility], [address] [place] [address]., [address] Blood 02/09/2025 3:21 AM CDT 02/09/2025 3:26 AM CDT Teofilo Lugo Jr., MD LAB BLOOD ORDERABLES Fi nal Result Performing Organization Address City/[facility] Co de Phone Number [place] [phone] [facility] [place] [address] * Differential, auto (02/09/2025 3:21 AM CDT) Neutrophil abs 4.37 1.50 - 6.50 K/cumm Comment:Testing performed by : [address] [address] Imm gran abs 0.02 0.00 - 0.10 K/cumm BERNIE Comment:Testing performed by : [address] [address] Lymphocyte abs 2.04 0.80 - 3.30 K/cumm [facility] Comment:Testing performed by : [address] [address] Monocyte abs 0.77 0.20 - 0.80 K/cumm [facility] Comment:Testing performed by : [address] [address] Eosinophil abs 0.20 0.00 - 0.50 K/cumm [facility] Comment:Testing performed by : [address] [address] Basophil abs 0.09 0.00 - 0.10 K/cumm [facility] Comment:Testing performed by : [address] [address] Neutrophil pct 58.3 % [facility] Comment: Interpretive Data Percent cell count reference ranges are not reported, since discordance with absolute values may lead to misinterpretation of CBC data. Current Interpretive Data was last revised on 2018. Testing performed by: [address] [address] Imm gran pct 0.3 % [facility] Comment: Interpretive Data Percent cell count reference ranges are not reported, since discordance with absolute values may lead to misinterpretation of CBC data. Current Interpretive Data was last revised on 2018. Testing performed by: [address] [address] Lymphocyte pct 27.2 % [facility] Comment: Interpretive Data Percent cell count reference ranges are not reported, since discordance with absolute values may lead to misinterpretation of CBC data. Current Interpretive Data was last revised on 2018. Testing performed by: [address] [place]., [address] Monocyte pct 10.3 % BERNIE Comment: Interpretive Data Percent cell count reference ranges are not reported, since discordance with absolute values may lead to misinterpretation of CBC data. Current Interpretive Data was last revised on 2018. Testing performed by: [address] [address] Eosinophil pct 2.7 % BERNIE REAGAN Comment: Interpretive Data Percent cell count reference ranges are not reported, since discordance with absolute values may lead to misinterpretation of CBC data. Current Interpretive Data was last revised on 2018. Testing performed by: [address] [address] Basophil pct 1.2 % BERNIE Comment: Interpretive Data Percent cell count reference ranges are not reported, since discordance with absolute values may lead to misinterpretation of CBC data. Current Interpretive Data was last revised on 2018. Testing performed by: [address] [address] Blood 02/09/2025 3:21 AM CDT 02/09/2025 3:26 AM CDT us Teofilo Lugo Jr., MD LAB BLOOD ORDERABLES nal Result BERNIE [address] [facility] Department of Laboratories [place], [place] [id number] * (ABNORMAL) CBC with auto differential (02/09/2025 3:21 AM CDT) WBC 7.49 3.80 - 9.90 K/cumm Comment:Testing performed by : [address] [address] Hgb 15.1 13.0 - 17.5 g/dL BERNIE REAGAN Comment:Testing performed by : [address] [address] Hct 43.6 38.9 - 50.3 % BERNIE REAGAN Comment:Testing performed by : [address] [address] Plt 238 150 - 400 K/cumm BERNIE REAGAN Comment:Testing performed by : [address] [address] MPV 8.6(L) 9.1 - 12.3 fL BERNIE REAGAN Comment:Testing performed by : [address] [address] RBC 4.92 4.30 - 5.80 M/cumm BERNIE REAGAN Comment:Testing performed by : [address] [address] MCV 88.6 81.3 - 96.4 fL BERNIE REAGAN Comment:Testing performed by : [address] [address] MCH 30.7 27.1 - 33.3 pg BERNIE REAGAN Comment:Testing performed by : [address] [address] MCHC 34.6 32.3 - 35.7 g/dL BERNIE REAGAN Comment:Testing performed by : [address], [address] RDW CV 12.8 11.1 - 14.9 % BERNIE Comment:Testing performed by : [address], [address] RDW SD 41.6 35.7 - 48.1 fL BERNIE REAGAN Comment:Testing performed by : [address] [address] NRBC abs 0.00 0.00 - 0.01 K/cumm BERNIE Comment:Testing performed by : [address] [address] Blood Venous blood specimen / Unknown 02/09/2025 3:21 AM CDT 02/09/2025 3:26 AM CDT us Teofilo Lugo Jr., MD LAB BLOOD ORDERABLES Fi nal Result BERNIE [address] [facility] Department [place] [address] * Lipase (02/09/2025 3:21 AM CDT) [facility] Lipase 50 10 - 99 Units/L Comment:Testing performed by : [address] [address] Blood Venous blood specimen / Unknown 02/09/2025 3:21 AM CDT 02/09/2025 3:26 AM CDT us Teofilo Lugo Jr., MD LAB BLOOD ORDERABLES Fi nal Result [facility] [address] [facility] Department [place] [address] * Comprehensive metabolic panel (02/09/2025 3:21 AM CDT) [facility] Sodium 138 135 - 145 mmol/L Comment:Testing performed by : [address] [address] Potassium, pl 4.1 3.3 - 4.9 mmol/L BERNIE Comment:Testing performed by : [address] [address] Chloride 101 97 - 110 mmol/L BERNIE Comment:Testing performed by : [address] [address] CO2 27 22 - 32 mmol/L BERNIE Comment:Testing performed by : [address] [address] Anion gap 10 2 - 15 mmol/L BERNIE Comment:Testing performed by : [address] [address] BUN 10 6 - 25 mg/dL BERNIE Comment:Testing performed by : [address] [address] Creatinine 1.14 0.80 - 1.30 mg/dL BERNIE Comment:Testing performed by : [address] [address] Glucose 118 70 - 199 mg/dL BERNIE Comment: Interpretive [...] was last revised 2022. Testing performed by: [address] [address] Calcium 9.8 8.5 - 10.3 mg/dL BERNIE Comment:Testing performed by : [address] [address] Bilirubin, total 0.9 0.1 - 1.2 mg/dL BERNIE Comment:Testing performed by : [address] [address] Protein, pl 7.6 6.5 - 8.5 g/dL BERNIE Comment:Testing performed by : [address] [address] Albumin 4.5 3.5 - 5.0 g/dL BERNIE Comment:Testing performed by : [address] [address] Alk phos 82 40 - 130 Units/L BERNIE Comment:Testing performed by : [address] [address] ALT 54 7 - 55 Units/L BERNIE Comment:Testing performed by : [address] [address] AST 34 10 - 50 Units/L BERNIE Comment:Testing performed by : [address] [address] Blood Venous blood specimen / Unknown 02/09/2025 3:21 AM CDT 02/09/2025 3:26 AM CDT us Teofilo Lugo Jr., MD LAB BLOOD ORDERABLES Fi nal Result [facility]RANDEE [address] [facility] Department [place] [address] * CT Abdomen Pelvis WO Contrast (01/21/2025 6:14 PM CDT) Anatomical Region Laterality Modality Body N/A Computed Tomogra phy 01/21/2025 6:32 PM CDT Narrative 01/21/2025 6:35 PM CDT EXAM DESCRIPTION: CT ABDOMEN PELVIS WO CONTRAST REASON FOR STUDY: Abdominal/flank pain, stone suspected reports left flank pain which radiates to 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 Hx kidney stones. TECHNIQUE: [...] 01/21/2025 6:35 PM - Electronically signed by Stewmarcie Mooney M.D. 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 Hx kidney stones. TECHNIQUE: [...] Electronically signed by Stew Mooney M.D. KT: TAYLOR Report ID: [id number] Reading Location: [id number] Jalen Miramontes Johnnati MANISHA IMG CT PROCEDURES Final Result * Urinalysis reflex to microscopic and culture Urine (01/21/2025 5:32 PM CDT) Color, ur Yellow Yellow Comment:Testing performed by : [address] [address] Clarity, ur Clear Clear BERNIE Comment:Testing performed by : [address] [address] Specific gravity, ur 1.023 1.003 - 1.030 BERINE Comment:Testing performed by : [address] [address] pH, urine 6.0 BERNIE Comment: Interpretive Data U rine pH is affected by diet, medications, systemic acid-base disturbances, and renal tubular function. pH may affect urinary stone formation. For example, urine pH below 6.0 may help reduce the tendency for calcium phosphate stones and pH greater than 6.0 may reduce the tendency for uric acid stone formation. Source: [employer] Current Interpretive Data was last revised on 2017 Testing performed by: [address] [address] Protein, ur ql Negative Negative BERNIE Comment:Testing performed by : [address] [address] Glucose, ur ql Negative Negative BERNIE Comment:Testing performed by : [address] [address] Ketones, ur Negative Negative BERNIE Comment:Testing performed by : [address] [address] Bilirubin, ur Negative Negative BERNIE Comment:Testing performed by : [address] [address] Blood, ur Negative Negative BERNIE Comment:Testing performed by : [address] [address] Urobilinogen, ur <2.0 <2.0 mg/dL BERNIE Comment:Testing performed by : [facility], [address] [place] [address]., [address] Nitrite, ur Negative Negative BERNIE Comment:Testing performed by : [address] [address] Leukocyte esterase, ur Negative Negative BERNIE Comment:Testing performed by : [address] [address] UA reflex comment Reflex conditions for microscopic UA and culture not met. BERNIE Comment:Testing performed by : [facility], [address] [place] [address]., [address] Urine 01/21/2025 5:32 PM CDT 01/21/2025 5:38 PM CDT Jalen DYER LAB MICROBIOLOGY - GENERAL ORDERABLES Final Result BERNIE [address] [facility] Department [place] [address] * eGFR (01/21/2025 5:28 PM CDT) eGFR [...] was last reviewed 2021. Testing performed by: [address] [address] Blood 01/21/2025 5:28 PM CDT 01/21/2025 5:37 PM CDT us Jalen DYER LAB BLOOD ORDERABL ES Final Result [facility] [address] [facility] Department [place] [address] * Differential, auto (01/21/2025 5:28 PM CDT) Neutrophil abs 3.1 1.5 - 6.5 K/cumm Comment:Testing performed by : [address] [address] Imm gran abs 0.0 0.0 - 0.1 K/cumm BERNIE Comment:Testing performed by : [address] [address] Lymphocyte abs 1.9 0.8 - 3.3 K/cumm BERNIE Comment:Testing performed by : [address] [address] Monocyte abs 0.6 0.2 - 0.8 K/cumm BERNIE Comment:Testing performed by : [address] [address] Eosinophil abs 0.2 0.0 - 0.5 K/cumm BERNIE Comment:Testing performed by : [address] [address] Basophil abs 0.1 0.0 - 0.1 K/cumm BERNIE Comment:Testing performed by : [address] [address] Neutrophil pct 53.2 % BERNIE Comment: Interpretive Data Percent cell count reference ranges are not reported, since discordance with absolute values may lead to misinterpretation of CBC data. Current Interpretive Data was last revised on 2018. Testing performed by: [address] [address] Imm gran pct 0.2 % [facility] Comment: Interpretive Data Percent cell count reference ranges are not reported, since discordance with absolute values may lead to misinterpretation of CBC data. Current Interpretive Data was last revised on 2018. Testing performed by: [address] [address] Lymphocyte pct 32.9 % [facility] Comment: Interpretive Data Percent cell count reference ranges are not reported, since discordance with absolute values may lead to misinterpretation of CBC data. Current Interpretive Data was last revised on 2018. Testing performed by: [address] [address] Monocyte pct 9.5 % [facility] Comment: Interpretive Data Percent cell count reference ranges are not reported, since discordance with absolute values may lead to misinterpretation of CBC data. Current Interpretive Data was last revised on 2018. Testing performed by: [address] [address] Eosinophil pct 3.2 % [facility] Comment: Interpretive Data Percent cell count reference ranges are not reported, since discordance with absolute values may lead to misinterpretation of CBC data. Current Interpretive Data was last revised on 2018. Testing performed by: [address] [address] Basophil pct 1.0 % [facility] Comment: Interpretive Data Percent cell count reference ranges are not reported, since discordance with absolute values may lead to misinterpretation of CBC data. Current Interpretive Data was last revised on 2018. Testing performed by: [address] [address] Blood 01/21/2025 5:28 PM CDT 01/21/2025 5:37 PM CDT Jalen DYER LAB BLOOD ORDERABL ES Final Result BERNIE REAGAN [address] [facility] Department [place] [address] * (ABNORMAL) CBC with auto differential (01/21/2025 5:28 PM CDT) WBC 5.9 3.8 - 9.9 K/cumm Comment:Testing performed by : [address], [address] Hgb 14.6 13.0 - 17.5 g/dL BERNIE Comment:Testing performed by : [address] [address] Hct 42.4 38.9 - 50.3 % BERNIE Comment:Testing performed by : [address] [address] Plt 252 150 - 400 K/cumm BERNIE Comment:Testing performed by : [address] [address] MPV 8.7(L) 9.1 - 12.3 fL BERNIE Comment:Testing performed by : [address], [address] RBC 4.75 4.30 - 5.80 M/cumm BERNIE Comment:Testing performed by : [address], [address] MCV 89.3 81.3 - 96.4 fL BERNIE Comment:Testing performed by : [address], [address] MCH 30.7 27.1 - 33.3 pg BERNIE Comment:Testing performed by : [address] [address] MCHC 34.4 32.3 - 35.7 g/dL BERNIE Comment:Testing performed by : [address], [address] RDW CV 12.8 11.1 - 14.9 % BERNIE Comment:Testing performed by : [address], [address] RDW SD 41.9 35.7 - 48.1 fL BERNIE Comment:Testing performed by : [address] [address] NRBC abs 0.00 0.00 - 0.01 K/cumm BERNIE Comment:Testing performed by : [address], [address] Blood Venous blood specimen / Unknown 01/21/2025 5:28 PM CDT 01/21/2025 5:37 PM CDT Adebowale Tolulade Adesida PA LAB BLOOD ORDERABL ES Final Result Performing Organization Address [facility] Co de Phone Number [address] [address] * Lipase (01/21/2025 5:28 PM CDT) Pathologist [facility] Lipase 45 10 - 99 Units/L Comment:Testing performed by : [address] [address] Blood Venous blood specimen / Unknown 01/21/2025 5:28 PM CDT 01/21/2025 5:37 PM CD[facility] Tolulade Adesida PA LAB BLOOD ORDERABL ES Final Result Performing Organization Address [facility] de Phone Number [address] [address] * Comprehensive metabolic panel (01/21/2025 5:28 PM CDT) Pathologist [facility] Sodium 140 135 - 145 mmol/L Comment:Testing performed by : [address] [address] Potassium, pl 4.0 3.3 - 4.9 mmol/L BERNIE Comment:Testing performed by : [address] [address] Chloride 103 97 - 110 mmol/L BERNIE Comment:Testing performed by : [address] [address] CO2 29 22 - 32 mmol/L BERNIE Comment:Testing performed by : [address] [address] Anion gap 8 2 - 15 mmol/L BERNIE Comment:Testing performed by : [address] [address] BUN 10 6 - 25 mg/dL BERNIE Comment:Testing performed by : [address] [address] Creatinine 1.20 0.80 - 1.30 mg/dL BERNIE Comment:Testing performed by : [address] [address] Glucose 111 70 - 199 mg/dL [facility]RANDEE Comment: Interpretive Data Fasting glucose >/= 126 [...] was last revised 2022. Testing performed by: [address] [address] Calcium 10.0 8.5 - 10.3 mg/dL [facility]ANDEE Comment:Testing performed by : [address] [address] Bilirubin, total 0.8 0.1 - 1.2 mg/dL [facility]RANDEE Comment:Testing performed by : [address] [address] Protein, pl 7.8 6.5 - 8.5 g/dL BERNIE Comment:Testing performed by : [address] [address] Albumin 4.6 3.5 - 5.0 g/dL [facility]RANDEE Comment:Testing performed by : [address] [address] Alk phos 84 40 - 130 Units/L BERNIE Comment:Testing performed by : [address] [address] ALT 38 7 - 55 Units/L BERNIE Comment:Testing performed by : [address] [address] AST 25 10 - 50 Units/L BERNIE Comment:Testing performed by : [facility], [address] [place] [address]., [address] Blood Venous blood specimen / Unknown 01/21/2025 5:28 PM CDT 01/21/2025 5:37 PM CDT us Jalen DYER LAB BLOOD ORDERABL ES Final Result Performing Organization Address City/State/ZIP Co sc Phone Number BERNIE [address] [facility] Department [place] [address] from Last 3 Months Insurance [facility] Care Teams Bird Tender Relationship Specialty Start Date End Date Hayden Carrillo MD [address] [place] [address] PCP - General Family Medicine 12/24/23
--- OUTSIDE RECORDS SUMMARY | 2025-02-19 12:51 | XMS_ITS | Clinical Summary ---
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 Cancer screening Discharge Disposition: Home or Self Care 02/02/2025 External Device Data STL ABSTRACTION Provider, Abstract 02/02/2025 External Device Data STL ABSTRACTION Provider, Abstract 02/02/2025 External Device Data STL ABSTRACTION Provider, Abstract 02/01/2025 2:00 PM CDT Telephone [facility] the [facility] [address] [place] [address] Flor Garcia RN [facility] from Last 3 Months Social History Tobacco Use Types Packs/Day Years Used Date Smoking Tobacco: Never Assessed Sex and Gender Information Value Date Recorded Sex Assigned at Not on file Legal Sex Male 12:14 PM CDT Gender Identity Not on file Sexual Orientation Not on file Plan of Treatment Health Maintenance Due Date Last Done Comments Pre-Diabetes and Diabetes Screening 1975 HEPATITIS B VACCINES (1 of 3 - 19+ 3-dose series) 07/06 FIT-DNA Q 3 years 2018 FIT/FOBT Q 1 year 2018 Flex Sig/CT Colonography Q 5 years 2018 ZOSTER VACCINE (1 of 2) 2023 INFLUENZA VACCINE (#1) 2024 08/29/2019 DTAP/TDAP/TD VACCINES (2 - Td or Tdap) 06/25/2026 COLORECTAL SCREENING 07/18/2031 07/18/2021 Colorectal Cancer Screening 07/18/2031
--- OUTSIDE RECORDS SUMMARY | 2025-02-19 12:51 | XMS_ITS | Clinical Summary ---
Author Organization [facility] Address [address] [place] [address] Care Team Providers Care Pottery Decorator Name Role Phone Unavailable Primary Care Provider Unavailabl e Source Comments [facility],non-owned Affiliates and Associated Physician Practices is amultiple site organization consisting of ambulatory clinics and hospital sitesin [place], [place], [place] and [place]. This disclosure is being madepursuant to the Care Everywhere program and may not contain all information available regarding this patient. 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 Gender Identity Not on file Sexual Orientation Not on file Last Filed Vital Signs Vital Sign Reading Time Taken Comments Blood Pressure - - Pulse 72 10/31/2020 1:50 PM INSURANCE INSPECTOR Temperature - - Respiratory Rate - - Oxygen Saturation - - Inhaled Oxygen Concentration - - Weight 84.8 kg (187 lb) 10/31/2020 1:50 PM INSURANCE INSPECTOR Height 179.1 cm (5' 10.5 ) 10/31/2020 1:50 PM CS T Body Mass Index 26.45 10/31/2020 1:50 PM INSURANCE INSPECTOR Plan of Treatment Health Maintenance Due Date [...] VACCINE (1 - 2023-2 5 season) 2024 DEPRESSION SCREENING 11/04/2024 INFLUENZA VACCINE (Season Ended) 2025 HIB VACCINE Aged Out No longer eligi [...] on patient's age to complete this topic Insurance IAN
--- OUTSIDE RECORDS SUMMARY | 2025-02-19 12:51 | XMS_ITS | Clinical Summary ---
Author Organization [facility] Address [address] [place] [address] Care Team Providers Care Nail Galvanizer Name Role Phone Hayden Carrillo MD Primary Care Provider [phone] Allergies Active Allergy Reactions Criticality Noted Date [...] wide field photographs, okay to follow in [facility] or locally. Call immediately if any [...] CDT - 02/09/2025 6:32 AM CDT Emergency [facility] Emergency Department [address] [place] [address] Teofilo Lugo Jr., MD Left ureteral stone (Primary Dx) Discharge Disposition: Discharge to home or self care 01/21/2025 5:41 PM CDT - 01/21/2025 7:27 PM CDT Emergency [facility] Emergency Department [address] [place] [id number] Kidney stone (Primary Dx) Discharge Disposition: Discharge [...] CDT Gender Identity Male 12/04/2022 8:26 PM CODING VALIDATOR Sexual Orientation Straight 12/04/2022 8: 26 PM CODING VALIDATOR Obstetrics History Last Filed Vital Signs Vital [...] (1 of 2) 2023 Covid-19 Vaccine ( season) 2024 10/15/2021, 02/12/2021, 01/22/2021 Influenza Vaccine [...] Francisco Gonzalez M.D. AR: ISIS Report ID: [id number] Reading Location: [id number] Procedure Note Francisco Gonzalez MD - 02/09/2025 [...] Francisco Gonzalez M.D. AR: ISIS Report ID: [id number] Reading Location: [place] [address] Teofilo Lugo Jr., MD IM CT PROCEDURES Final Result * (ABNORMAL) Urinalysis reflex to microscopic and culture Urine (02/09/2025 4:14 AM CDT) Color, ur Yellow Yellow Comment:Testing performed by : [facility], [address] [place] [address]., [address] Clarity, ur Clear Clear BERNIE Comment:Testing performed by : [address] [address] Specific gravity, ur 1.008 1.003 - 1.030 BERNIE REAGAN Comment:Testing performed by : [facility], [address] [place] [address], [place]., [address] pH, urine 5.5 BERNIE Comment: Interpretive Data U rine pH is affected by diet, medications, systemic acid-base disturbances, and renal tubular function. pH may affect urinary stone formation. For example, urine pH below 6.0 may help reduce the tendency for calcium phosphate stones and pH greater than 6.0 may reduce the tendency for uric acid stone formation. Source: [facility] [employer] Current Interpretive Data was last revised on 2017 Testing performed by: [facility], [address] [place] [address], [place]., [address] Protein, ur ql Negative Negative BERNIE Comment:Testing performed by : [address], [place]., [address] Glucose, ur ql Negative Negative BERNIE Comment:Testing performed by : [address], [place]., [address] Ketones, ur Negative Negative BERNIE Comment:Testing performed by : [address], [place]., [address] Bilirubin, ur Negative Negative BERNIE Comment:Testing performed by : [address], [place]., [address] Blood, ur 1+(A) Negative BERNIE Comment:Testing performed by : [address], [place]., [address] Urobilinogen, ur <2.0 <2.0 mg/dL BERNIE Comment:Testing performed by : [address], [place]., [address] Nitrite, ur Negative Negative BERNIE Comment:Testing performed by : [address], [place]., [address] Leukocyte esterase, ur Negative Negative BERNIE Comment:Testing performed by : [address] [address] UA reflex comment Reflex to microscopic UA will be performed. BERNIE Comment:Testing performed by : [address], [place]., [address] Urine 02/09/2025 4:14 AM CDT 02/09/2025 4:17 AM CDT Teofilo Lugo Jr., MD LAB MICROBIOLOGY - GENE RAL ORDERABLES Final Result Performing Organization Address [facility] Co de Phone Number BERNIE [address] [address] * (ABNORMAL) Urinalysis, microscopic only (02/09/2025 4:14 AM CDT) WBC, ur 0-5 0 - 5 /HPF Comment:Testing performed by : [address] [address] RBC, ur 3-5(A) 0 - 2 /HPF BERNIE Comment:Testing performed by : [address] [address] Mucous, ur Present(A) BERNIE Comment:Testing performed by : [address] [address] Culture Reflex Comment Reflex conditions for urine culture (WBC >10) not met. BERNIE Comment:Testing performed by : [address] [address] Urine 02/09/2025 4:14 AM CDT 02/09/2025 4:17 AM CDT Teofilo Lugo Jr., MD LAB URINE ORDERABLES Fi nal Result Performing Organization Address [facility] Co de Phone Number BERNIE [address] [address] * eGFR (02/09/2025 3:21 AM CDT) eGFR [...] was last reviewed 2021. Testing performed by: [address] [address] Blood 02/09/2025 3:21 AM CDT 02/09/2025 3:26 AM CDT us Teofilo Lugo Jr., MD LAB BLOOD ORDERABLES Fi nal Result [place] [address] [facility] Department [place] [address] * Differential, auto (02/09/2025 3:21 AM CDT) Neutrophil abs 4.37 1.50 - 6.50 K/cumm Comment:Testing performed by : [address] [address] Imm gran abs 0.02 0.00 - 0.10 K/cumm BERNIE Comment:Testing performed by : [address] [address] Lymphocyte abs 2.04 0.80 - 3.30 K/cumm BERNIE Comment:Testing performed by : [address] [address] Monocyte abs 0.77 0.20 - 0.80 K/cumm BERNIE Comment:Testing performed by : [address] [address] Eosinophil abs 0.20 0.00 - 0.50 K/cumm BERNIE Comment:Testing performed by : [address] [address] Basophil abs 0.09 0.00 - 0.10 K/cumm BERNIE Comment:Testing performed by : [address] [address] Neutrophil pct 58.3 % [facility] Comment: Interpretive Data Percent cell count reference ranges are not reported, since discordance with absolute values may lead to misinterpretation of CBC data. Current Interpretive Data was last revised on 2018. Testing performed by: [address] [address] Imm gran pct 0.3 % [facility] Comment: Interpretive Data Percent cell count reference ranges are not reported, since discordance with absolute values may lead to misinterpretation of CBC data. Current Interpretive Data was last revised on 2018. Testing performed by: [address] [address] Lymphocyte pct 27.2 % [facility] Comment: Interpretive Data Percent cell count reference ranges are not reported, since discordance with absolute values may lead to misinterpretation of CBC data. Current Interpretive Data was last revised on 2018. Testing performed by: [address] [address] Monocyte pct 10.3 % [facility] Comment: Interpretive Data Percent cell count reference ranges are not reported, since discordance with absolute values may lead to misinterpretation of CBC data. Current Interpretive Data was last revised on 2018. Testing performed by: [address] [address] Eosinophil pct 2.7 % [facility] Comment: Interpretive Data Percent cell count reference ranges are not reported, since discordance with absolute values may lead to misinterpretation of CBC data. Current Interpretive Data was last revised on 2018. Testing performed by: [address] [address] Basophil pct 1.2 % [facility] Comment: Interpretive Data Percent cell count reference ranges are not reported, since discordance with absolute values may lead to misinterpretation of CBC data. Current Interpretive Data was last revised on 2018. Testing performed by: [address] [address] Blood 02/09/2025 3:21 AM CDT 02/09/2025 3:26 AM CDT us Teofilo Lugo Jr., MD LAB BLOOD ORDERABLES Fi nal Result BERNIE [address] [facility] Department [place] [address] * (ABNORMAL) CBC with auto differential (02/09/2025 3:21 AM CDT) WBC 7.49 3.80 - 9.90 K/cumm Comment:Testing performed by : [address] [address] Hgb 15.1 13.0 - 17.5 g/dL BERNIE Comment:Testing performed by : [address] [address] Hct 43.6 38.9 - 50.3 % BERNIE Comment:Testing performed by : [address] [address] Plt 238 150 - 400 K/cumm BERNIE Comment:Testing performed by : [address] [address] MPV 8.6(L) 9.1 - 12.3 fL BERNIE Comment:Testing performed by : [address] [address] RBC 4.92 4.30 - 5.80 M/cumm BERNIE Comment:Testing performed by : [address] [address] MCV 88.6 81.3 - 96.4 fL BERNIE Comment:Testing performed by : [address] [address] MCH 30.7 27.1 - 33.3 pg BERNIE Comment:Testing performed by : [address] [address] MCHC 34.6 32.3 - 35.7 g/dL BERNIE REAGAN Comment:Testing performed by : [address] [address] RDW CV 12.8 11.1 - 14.9 % BERNIE Comment:Testing performed by : [address] [address] RDW SD 41.6 35.7 - 48.1 fL BERNIE REAGAN Comment:Testing performed by : [address] [address] NRBC abs 0.00 0.00 - 0.01 K/cumm BERNIE REAGAN Comment:Testing performed by : [address] [address] Blood Venous blood specimen / Unknown 02/09/2025 3:21 AM CDT 02/09/2025 3:26 AM CDT Teofilo Lugo Jr., MD LAB BLOOD ORDERABLES Fi nal Result Performing Organization Address [facility] Co de Phone Number [address] [place] [address] * Lipase (02/09/2025 3:21 AM CDT) Pathologist [facility] Lipase 50 10 - 99 Units/L Comment:Testing performed by : [address], [address] Blood Venous blood specimen / Unknown 02/09/2025 3:21 AM CDT 02/09/2025 3:26 AM CDT us Teofilo Lugo Jr., MD LAB BLOOD ORDERABLES Fi nal Result Performing Organization Address [facility] Co de Phone Number [address] [address] * Comprehensive metabolic panel (02/09/2025 3:21 AM CDT) Pathologist [facility] Sodium 138 135 - 145 mmol/L Comment:Testing performed by : [address] [address] Potassium, pl 4.1 3.3 - 4.9 mmol/L BERNIE REAGAN Comment:Testing performed by : [address] [address] Chloride 101 97 - 110 mmol/L BERNIE REAGAN Comment:Testing performed by : [address], [place]., [address] CO2 27 22 - 32 mmol/L BERNIE Comment:Testing performed by : [address] [address] Anion gap 10 2 - 15 mmol/L BERNIE Comment:Testing performed by : [address], [place]., [address] BUN 10 6 - 25 mg/dL BERNIE Comment:Testing performed by : [address], [place]., [address] Creatinine 1.14 0.80 - 1.30 mg/dL BERNIE Comment:Testing performed by : [address], [place]., [address] Glucose 118 70 - 199 mg/dL BERNIE [...] was last revised 2022. Testing performed by: [address] [address] Calcium 9.8 8.5 - 10.3 mg/dL BERNIE Comment:Testing performed by : [address] [address] Bilirubin, total 0.9 0.1 - 1.2 mg/dL BERNIE Comment:Testing performed by : [address] [address] Protein, pl 7.6 6.5 - 8.5 g/dL BERNIE Comment:Testing performed by : [address] [address] Albumin 4.5 3.5 - 5.0 g/dL BERNIE Comment:Testing performed by : [address] [address] Alk phos 82 40 - 130 Units/L BERNIE Comment:Testing performed by : [address] [address] ALT 54 7 - 55 Units/L BERNIE Comment:Testing performed by : [address] [address] AST 34 10 - 50 Units/L BERNIE Comment:Testing performed by : [address] [address] Blood Venous blood specimen / Unknown 02/09/2025 3:21 AM CDT 02/09/2025 3:26 AM CDT us Teofilo Lugo Jr., MD LAB BLOOD ORDERABLES Fi nal Result BERNIE [address]4 [facility] Department [place] [address] * CT Abdomen Pelvis WO Contrast (01/21/2025 6:14 PM CDT) Anatomical Region Laterality Modality Body N/A Computed Tomogra phy 01/21/2025 6:32 PM CDT Narrative 01/21/2025 6:35 PM CDT EXAM DESCRIPTION: CT ABDOMEN PELVIS WO CONTRAST REASON FOR STUDY: Abdominal/flank pain, stone suspected reports left flank pain which radiates to suprapubic x 2 days 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 Pain rated 4/10. Hx kidney stones. TECHNIQUE: [...] Stew Mooney M.D. 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 Pain rated 4/10. Hx kidney stones. TECHNIQUE: [...] Stew Mooney M.D. KT: TAYLOR Report ID: [id number] Reading Location: [place] [address] [address] PROCEDURES Final Result * Urinalysis reflex to microscopic and culture Urine (01/21/2025 5:32 PM CDT) Color, ur Yellow Yellow Comment:Testing performed by : [address] [address] Clarity, ur Clear Clear BERNIE Comment:Testing performed by : [address] [address] Specific gravity, ur 1.023 1.003 - 1.030 BERNIE Comment:Testing performed by : [address] [address] pH, urine 6.0 BERNIE Comment: Interpretive Data U rine pH is affected by diet, medications, systemic acid-base disturbances, and renal tubular function. pH may affect urinary stone formation. For example, urine pH below 6.0 may help reduce the tendency for calcium phosphate stones and pH greater than 6.0 may reduce the tendency for uric acid stone formation. Source: [facility] Current Interpretive Data was last revised on 2017 Testing performed by: [facility], [address] [place] [address], [place]., [address] Protein, ur ql Negative Negative BERNIE Comment:Testing performed by : [address] [address] Glucose, ur ql Negative Negative BERNIE Comment:Testing performed by : [address], [place]., [address] Ketones, ur Negative Negative BERNIE Comment:Testing performed by : [address], [place]., [address] Bilirubin, ur Negative Negative BERNIE Comment:Testing performed by : [address], [place]., [address] Blood, ur Negative Negative BERNIE Comment:Testing performed by : [address], [place]., [address] Urobilinogen, ur <2.0 <2.0 mg/dL BERNIE Comment:Testing performed by : [address], [place]., [address] Nitrite, ur Negative Negative BERNIE Comment:Testing performed by : [address], [place]., [address] Leukocyte esterase, ur Negative Negative BERNIE Comment:Testing performed by : [address] [address] UA reflex comment Reflex conditions for microscopic UA and culture not met. BERNIE Comment:Testing performed by : [address], [place]., [address] Urine 01/21/2025 5:32 PM CDT 01/21/2025 5:38 PM CDT us Jalen DYER LAB MICROBIOLOGY - GENERAL ORDERABLES Final Result BERNIE REAGAN [facility]6 [facility] Department of Laboratories [place], [place] [id number] * eGFR (01/21/2025 5:28 PM CDT) eGFR [...] was last reviewed 2021. Testing performed by: [address] [address] Blood 01/21/2025 5:28 PM CDT 01/21/2025 5:37 PM CDT Jalen DYER LAB BLOOD ORDERABL ES Final Result BERNIE [address]41 [facility] Department of Laboratories [place], [place] [id number] * Differential, auto (01/21/2025 5:28 PM CDT) Neutrophil abs 3.1 1.5 - 6.5 K/cumm Comment:Testing performed by : [address] [address] Imm gran abs 0.0 0.0 - 0.1 K/cumm BERNIE Comment:Testing performed by : [address] [address] Lymphocyte abs 1.9 0.8 - 3.3 K/cumm BERNIE Comment:Testing performed by : [address] [address] Monocyte abs 0.6 0.2 - 0.8 K/cumm [facility] Comment:Testing performed by : [address] [address] Eosinophil abs 0.2 0.0 - 0.5 K/cumm [facility] Comment:Testing performed by : [address], [place]., [address] Basophil abs 0.1 0.0 - 0.1 K/cumm [facility] Comment:Testing performed by : [address] [address] Neutrophil pct 53.2 % [facility] Comment: Interpretive Data Percent cell count reference ranges are not reported, since discordance with absolute values may lead to misinterpretation of CBC data. Current Interpretive Data was last revised on 2018. Testing performed by: [address] [address] Imm gran pct 0.2 % [facility] Comment: Interpretive Data Percent cell count reference ranges are not reported, since discordance with absolute values may lead to misinterpretation of CBC data. Current Interpretive Data was last revised on 2018. Testing performed by: [address] [address] Lymphocyte pct 32.9 % [facility] Comment: Interpretive Data Percent cell count reference ranges are not reported, since discordance with absolute values may lead to misinterpretation of CBC data. Current Interpretive Data was last revised on 2018. Testing performed by: [address] [address] Monocyte pct 9.5 % [facility] Comment: Interpretive Data Percent cell count reference ranges are not reported, since discordance with absolute values may lead to misinterpretation of CBC data. Current Interpretive Data was last revised on 2018. Testing performed by: [address] [address] Eosinophil pct 3.2 % [facility] Comment: Interpretive Data Percent cell count reference ranges are not reported, since discordance with absolute values may lead to misinterpretation of CBC data. Current Interpretive Data was last revised on 2018. Testing performed by: [address] [address] Basophil pct 1.0 % BERNIE REAGAN Comment: Interpretive Data Percent cell count reference ranges are not reported, since discordance with absolute values may lead to misinterpretation of CBC data. Current Interpretive Data was last revised on 2018. Testing performed by: [address] [address] Blood 01/21/2025 5:28 PM CDT 01/21/2025 5:37 PM CDT us Jalen DYER LAB BLOOD ORDERABL ES Final Result BERNIE REAGAN [address] [facility] Department [place] [address] * (ABNORMAL) CBC with auto differential (01/21/2025 5:28 PM CDT) WBC 5.9 3.8 - 9.9 K/cumm Comment:Testing performed by : [address] [address] Hgb 14.6 13.0 - 17.5 g/dL BERNIE REAGAN Comment:Testing performed by : [address] [address] Hct 42.4 38.9 - 50.3 % BERNIE REAGAN Comment:Testing performed by : [address] [address] Plt 252 150 - 400 K/cumm BERNIE REAGAN Comment:Testing performed by : [address] [address] MPV 8.7(L) 9.1 - 12.3 fL BERNIE REAGAN Comment:Testing performed by : [address] [address] RBC 4.75 4.30 - 5.80 M/cumm BERNIE REAGAN Comment:Testing performed by : [address] [address] MCV 89.3 81.3 - 96.4 fL BERNIE REAGAN Comment:Testing performed by : [address] [address] MCH 30.7 27.1 - 33.3 pg BERNIE REAGAN Comment:Testing performed by : [address] [address] MCHC 34.4 32.3 - 35.7 g/dL BERNIE REAGAN Comment:Testing performed by : [address], [address] RDW CV 12.8 11.1 - 14.9 % BERNIE Comment:Testing performed by : [address], [address] RDW SD 41.9 35.7 - 48.1 fL BERNIE Comment:Testing performed by : [address], [address] NRBC abs 0.00 0.00 - 0.01 K/cumm BERNIE Comment:Testing performed by : [address], [address] Blood Venous blood specimen / Unknown 01/21/2025 5:28 PM CDT 01/21/2025 5:37 PM CDT Adebowale Tolulade Adesida PA LAB BLOOD ORDERABL ES Final Result Performing Organization Address City/[facility]/ZIP Co de Phone Number [address] [place] [address] * Lipase (01/21/2025 5:28 PM CDT) Lipase 45 10 - 99 Units/L Comment:Testing performed by : [address], [address] Blood Venous blood specimen / Unknown 01/21/2025 5:28 PM CDT 01/21/2025 5:37 PM CDT Adebowale Tolulade Adesida PA LAB BLOOD ORDERABL ES Final Result Performing Organization Address City/[facility]/ZIP Co de Phone Number [address] [place] [address] * Comprehensive metabolic panel (01/21/2025 5:28 PM CDT) Sodium 140 135 - 145 mmol/L Comment:Testing performed by : [address] [address] Potassium, pl 4.0 3.3 - 4.9 mmol/L BERNIE Comment:Testing performed by : [address] [address] Chloride 103 97 - 110 mmol/L BERNIE Comment:Testing performed by : [address] [address] CO2 29 22 - 32 mmol/L BERNIE Comment:Testing performed by : [address] [address] Anion gap 8 2 - 15 mmol/L BERNIE Comment:Testing performed by : [address] [address] BUN 10 6 - 25 mg/dL BERNIE Comment:Testing performed by : [address] [address] Creatinine 1.20 0.80 - 1.30 mg/dL BERNIE Comment:Testing performed by : [address] [address] Glucose 111 70 - 199 mg/dL BERNIE [...] was last revised 2022. Testing performed by: [address] [address] Calcium 10.0 8.5 - 10.3 mg/dL BERNIE Comment:Testing performed by : [address] [place] [address] Bilirubin, total 0.8 0.1 - 1.2 mg/dL BERNIE Comment:Testing performed by : [address], [address] Protein, pl 7.8 6.5 - 8.5 g/dL BERNIE Comment:Testing performed by : [address], [address] Albumin 4.6 3.5 - 5.0 g/dL BERNIE Comment:Testing performed by : [address], [address] Alk phos 84 40 - 130 Units/L BERNIE Comment:Testing performed by : [address], [address] ALT 38 7 - 55 Units/L BERNIE Comment:Testing performed by : [address], [address] AST 25 10 - 50 Units/L BERNIE Comment:Testing performed by : [address] [address] Blood Venous blood specimen / Unknown 01/21/2025 5:28 PM CDT 01/21/2025 5:37 PM CDT Jalen DYER LAB BLOOD ORDERABL ES Final Result Performing Organization Address City/State/[facility] Co de Phone Number [facility] [address] [facility] Department [place] [address] from Last 3 Months Insurance [facility] Care Teams Nail Galvanizer Relationship Specialty Start Date End Date Hayden Carrillo MD [address] [facility] [address] PCP - General Family Medicine 12/24/23
--- OUTSIDE RECORDS SUMMARY | 2025-02-19 12:51 | XMS_ITS | Continuity of Care Document ---
Author Organization [facility] Address [address] [place] [address] [place] [address] Phone Care Team Providers Care Powerplant Operator Name Role Phone Hayden Carrillo MD Unavailable [...] on Encounter PREV VISIT, EST, AGE 40-64 [facility], [place], [address], [place], [place], [address], [place] tel:[phone] [facility] Medicine physical (chief complaint) Encounter for general adult medical exam w abnormal findingsObstructive sleep apnea (adult) (pediatric)Essentia l (primary) hypertensionRenal stoneMixed hyperlipidemiaRash 5 Gerardo Blake. [address], [place], [place], [address] , [place]. tel:[phone] OFFICE/OUTPA TIENT VISIT, EST [facility], [place], [address], [place], [address], [place] tel:[phone] [facility], [place] sleep apnea1 (chief complaint) renal stone1 (chief complaint) skin (chief complaint) Renal stoneObstructive Sleep Apnea HypopneaStage III chronic renal diseaseRashHypergly cemia 4 Carrillo Hayden. [address], [place], [place], [address] , [place]. tel:[phone] OFFICE/OUTPA TIENT VISIT, [facility], [address], [place], [address], [place] tel:[phone] [facility], [place] cough1 (chief complaint) skin1 (chief complaint) Cellulitis of right upper limbAcute cough 4 Carrillo Hayden. [address], [place], [place], [address] , [place]. tel:[phone] OFFICE/OUTPA TIENT VISIT, [facility], [address], [place], [address], [place] tel:[phone] [facility], [place] sleep apnea1 (chief complaint) palpitatio n1 (chief complaint) skin (chief complaint) liver cyst1 (chief complaint) Liver diseaseObstructive Sleep Apnea HypopneaPalpitation sStaphylococcus aureus infection 4 Carrillo Hayden. [address], [place], [place], [address] , [place]. tel:[phone] OFFICE/OUTPA TIENT VISIT, [facility], [address], [place], [address], [place] tel:[phone] [facility], [place] sleep apnea1 (chief complaint) palpitatio n1 (chief complaint) plantar1 (chief complaint) liver cyst1 (chief complaint) Liver diseaseObstructive sleep apnea (adult) (pediatric)Other chest painPlantar fascial fibromatosis 3 Carrillo Hayden. [address], [place], [address] , [place]. tel:[phone] OFFICE/OUTPA TIENT VISIT, [facility], [address], [place], [address], [place] tel:[phone] [facility] Medicine HLP (chief complaint) bili1 (chief complaint) sleep apnea1 (chief complaint) chest pain1 (chief complaint) foot pain1 (chief complaint) left side abd pain1 (chief complaint) Plantar fascial fibromatosisOther chest painLiver diseaseMixed hyperlipidemiaDisor patrice of bilirubin metabolism, unspecifiedObstruct efe sleep apnea (adult) (pediatric)Upper abdominal pain 3 Gerardo Blake. [address], [place], [place], [address] , [place]. tel:[phone] PREV VISIT, EST, AGE 40-64 [facility], [place], [address], [place], [address], [place] tel:[phone] [facility] Medicine physical (chief complaint) Encounter for general adult medical exam w abnormal findingsPrimary central sleep apneaLiver diseaseRadiculopath y, cervical region 3 Gerardo Blake. [address], [place], [place], [address] , [place]. tel:[phone] OFFICE/OUTPA TIENT VISIT, EST [facility], [place], [address], [place], [address], [place] tel:[phone] [facility] Medicine sick1 (chief complaint) sleep apnea1 (chief complaint) radiculopa thy1 (chief complaint) liver lesion1 (chief complaint) Viral infectionPrimary central sleep apneaLiver diseaseRadiculopath y, cervical region 2 Gerardo Blake. [address] [place], [address] , [place]. tel:[phone] PREV VISIT, NEW, AGE 40-64 [facility], [place], [address], [place], [address], [place] tel:[phone] [facility] Medicine physical (chief complaint) Encounter for general adult medical examination without abnormal findings 1 Gerardo Blake. [address], [place], [place], [address] , [place]. tel:[phone] Family History Family Member Type Diagnosis Age At Onset Mother Problem of 66 due to vaginal CA Father Problem Alive and well Maternal grandfather Problem colon CA 70s Sister Problem Alive and well Payers Payer name Insurance type Covered democrat ID Adeel desai(s) Marito [id number] Social History Type Description Quantity Date Captured [...] -Podiatric Medicine & Surgery Service Providers : Fleet Administrator (related to Plantar fascial fibromatosis) ordered Referral Referred To: Lc Earl [address] [facility] [address]
[place], [place], [phone] Ordered: Referrals: Podiatric Medicine & Surgery Service Providers : Fleet Administrator. Lc Earl. Evaluate and treat ordered Referral Ordered: CT ABDOMEN&PELVIS W/CONTRAST ordered Referral Ordered: SLEEP STUDY, ATTENDED ordered Referral Referred To: Santiago Desouza [address] [place] [address], [phone] Ordered: Referrals: Santiago Desouza. 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 cervical disc pathology. Pt is seeing [facility] doctor but no plans for any further work up per patient. He also has sleep apnea but he is not using cpap. Pt denies any fatigue Pt denies any snoring Pt denies any other complaints liver lesion1 Pt recently had CT of abdomen done by [facility] and was told ok per patient. Pt denies any abd pain radiculopathy1 Pt c/o persisten t left arm numbness and tingling with radiculopathy symptoms. Pt had NCS done which showed cervical disc issue Pt was told by [facility] that he needs surgery but he is [...] Pt denies any sob .Pt went to [facility] ER on 05/31/21 for chest pain and he had negative cardiac enzymes and EKG and he had CT angio of chest, abd and pelvis which showed benign hepatic cyst. Pt denies any exertional chest pain. Pt also has left arm numbness and tingling and weakness. Pt is seeing PCP at [facility] who ordered C spine and left shoulder [...] Mental Status Date Cognitive Assessment Orientation - Salmon ed to time, place, person, situation.
--- OUTSIDE RECORDS SUMMARY | 2025-02-19 12:51 | XMS_ITS | Encounter Summary ---
Author Name [facility] [facility] [place] Address [address] [place] [address] Care Team Providers Care Opto Mechanical Technician Name Role Phone LAUREN BAKER Primary Care Provider Unavail able Insurance Providers: All historical and current Section Date Range: From patient's date of to the date document was created. This section includes the names of all active insurance providers for the patient. Insurance Provider Type of Coverage Plan Name Start of Policy Coverage End of Policy Coverage Group Number Member ID Insurance Provider's Telephone Number Policy Lee's Name Patient's Relationship to Policy Lee [facility] 2024 [facility] Nov 04, 2024 [facility] [id number] PATIENT Selected Encounter This section includes the information on record at [place] for the Encounter. Date/Time Encounter Type Encounter Description Reason Provider Source March 04, 2024 01:08 PM Outpatient Encounter GENERAL INTERNAL MEDICINE [facility] Encounter Template Text not used by [facility] Encounter Notes: All associated encounter notes This section contains the clinical notes associated to the Encounter. Date/Time Encounter Note(s) Provider Source Feb 29, 2024 01:08 PM NONVA NOTE: LOCAL TITLE: [facility] SELF PRESENTING CARE COORD PLAN STANDARD TITLE: NONVA NOTE DATE OF NOTE: FEB 29, 2024@13:08 ENTRY DATE: MARCH 04, 2024@13:09:01 AUTHOR: ALBIN HANDLEY EXP COSIGNER: URGENCY: STATUS: COMPLETED Emergency Notification Intake Date Presenting to the Facility: Feb Method of Contact: Notified from ECR worklist Notification ID: [id number] [facility] Referral #: [id number] [facility] Name: Hospital: [facility] Address: [address] [place] [address] City: [facility] State: [place] Zip Code: [address] Count Includes [facility] Facility Point of Contact: Name: Josee Villatoro Chief complaint: back pain Primary Diagnosis: Disposition Unknown at time of intake note entry Adm: 02/29/2024 7:51 AM CDT - 02/29/2024 12:04 PM CDT Patient presenting with right flank pain. He reports it feels similar to his prior back pain. No sudden seizure, no incontinence. He reports urinary symptoms. Will check UA. Will give pain meds. Will apply lidocaine patch. Will reassess UA with RBCs in it. CT done and showed 3 mm right kidney stone. Patient reports feeling better. Pain is well-controlled. Will discharge on pain meds follow-up with urology. This may need a urology consult placed to cover post acute care needs. Records associated with this episode of care may be found in [facility]; also sent to [facility] for scanning. NOTICE: Follow-up care Outside the [place] related to this ER visit/Admission episode of care (EOC) is NOT COVERED under this ER Notification ID/Auth Number. Coverage for all follow-up care outside the [place] requires pre-authorization, which must be initiated via consult by the PCP. Please initiate any follow-up referral/consult(s) at the time of patient's discharge. /law/ MAT LOPEZ, RN REGISTERED NURSE Signed: 03/04/2024 13:33 Receipt Acknowledged By: 03/06/2024 12:46 /law/ CLAUDIA BROOKS, RN, BSN Registered Nurse 03/05/2024 10:38 /law/ MILANA DE PAZ STAFF PHYSICIAN [facility]
--- OUTSIDE RECORDS SUMMARY | 2025-02-19 12:51 | XMS_ITS | Encounter Summary ---
Author Organization [facility] Address [address] [place] [address] Care Team Providers Care Geophysical Manager Name Role Phone Unavailable Primary Care Provider Unavailabl e Encounter Details Date Type Department Care Team (Late st Contact Info) Description 08/12/2024 Lab Requisition [facility] - DermPath Lab [address] [place] [address] Letty Almanza MD [address] [place] [phone] Dermatitis, unspecified Social History Tobacco Use Types Packs/Day Years Used Date Smoking Tobacco: Never Assessed Sex and Gender Information Value Date Recorded Sex Assigned at Not on file 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 Gender Identity Not on file Sexual Orientation Not on file documented as of this encounter Plan of Treatment Not on file documented as of this encounter Procedures Procedure Name Priority Date/Time Associated Diagnosis Comments DERMATOPATHOLOGY Routine 08/12/2024 12:0 0 AM CDT Dermatitis, unspecified documented in this encounter Results * DERMATOPATHOLOGY (08/12/2024 12:00 AM CDT) Case Report Dermatopathology Report Case: [id number] Authorizing Provider: Letty Almanza MD Collected: 08/12/2024 12:00 AM Ordering Location: [facility] - Received: 08/13/2024 12:50 PM DermPath Lab Pathologist: Padma Tee MD Specimen: Skin, right forearm 3:31 PM CDT DERMATOPATHOLOGY LABORATORY Final Diagnosis Specimen A. SKIN, right forearm: HYPERKERATOSIS, ACANTHOSIS, AND HYPERGRANULOSIS (L28.1) ULCER WITH SUPERFICIAL DERMAL NECROSIS (L98.499) (see microscopic description and comment) 3:31 PM [facility] DERMATOPATHOLOGY LABORATORY Clinical History Actinic Prurigo vs Systemic Lupus Erythematosus 3:31 PM [facility] DERMATOPATHOLOGY LABORATORY Gross Description Specimen A: Received is one formalin filled container labeled with the patient's name and designated right forearm. The specimen consists of a shave biopsy measuring 7x7x2 mm. Jar 0. 3:31 PM [facility] DERMATOPATHOLOGY LABORATORY Microscopic Description Specimen A. [...] excluded. Clinical correlation is recommended. 3:31 PM [facility] DERMATOPATHOLOGY LABORATORY Disclaimer An external and internal positive and negative controls are appropriate for the histochemical, immunohistochemical and immunofluorescence stain(s) in this case (if any), except where stated explicitly. The performance characteristics of the stain(s) cited in this report were developed and its performance characteristic determined by the Dermatopathology Laboratory at [facility], directed by Dr. Calvin Ayers. These tests need not be, and therefore are not, approved by the [place] Food and Drug Administration. The tests are used for clinical purposes. Billing Codes Specimen Charges Stain Charges 83100 1 32545 82722 1 1 3:31 PM [facility] DERMATOPATHOLOGY LABORATORY Embedded Images 3:31 PM [facility] DERMATOPATHOLOGY LABORATORY Pathology/Cytolog y TISSUE SPECIMEN FROM SKIN / Unknown 08/12/2024 08/13/2024 12:50 PM CDT us Letty Almanza MD LAB - PATHOLOGY/CYTOLOGY ORDERAB LES Final Result DERMATOPATHOLOGY LABORATORY [facility] - Department of Dermatology [facility] Medicine [address] [place] [address], [address] [phone] documented in this encounter Visit Diagnoses Diagnosis Dermatitis, unspecified documented in this encounter
--- OUTSIDE RECORDS SUMMARY | 2025-02-19 12:51 | XMS_ITS | Clinical Summary ---
Author Organization [facility] Address [facility] [place] [address] Care Team Providers Care Air Crew Supervisor Name Role Phone Hayden Carrillo MD Primary Care Provider [phone] Allergies Active Allergy Reactions Criticality Noted Date [...] drink = 0.6 oz pur e alcohol) [facility] Utilities Answer Date Recorded In the past 12 months has [employer] electric, gas, oil, or water company threatened [...] any time in the past 12 m [facility], were you homeless or living in a fpc (including now)? 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 Sexual Orientation Straight 12/05/2022 8: 37 AM HEEL BOOM OPERATOR Last Filed Vital Signs Vital Sign Reading [...] of 3 - 19+ 3-dose series) 1992 Pneumococcal Vaccine: 50+ Years (1 of 1 - PCV) 2023 Zoster Vaccines (1 of 2) 2023 COVID-19 Vaccine (2023-2 5 season) 2024 10/14/2021, 02/12/2021, 01/22/2021 PHQ-2 (Physician [place]) 11/04/2024 Meningococcal B Vaccine Aged Out No [...] Irwin, RN Medical Devices Implanted Type Area Preservationist Device Identifier Shelf Expiration Date Model / Serial / Lot Stent Ureteral Winston Sci Contour 7fr X 28cm - [id number] Implanted:Qty : 1 on 03/24/2024 by Saul Youssef MD at [facility] Stent Right: Ureter [id number] 07/10/2024 [id number] / / [id number] Insurance [facility] Advance Directives * Full Code (Latest Code Status on File) Date Activated Date Inactivated Comments 03/23/2024 2:59 PM 03/25/2024 12:26 PM Care Teams Air Crew Supervisor Relationship Specialty Start Date End Date Hayden Carrillo MD [facility] [place] [id number] PCP - General FAMILY PRACTICE 04/04/20
--- OUTSIDE RECORDS SUMMARY | 2025-02-19 12:51 | XMS_ITS | Continuity of Care Document ---
Author Name [facility] Organization [facility] Care Team Providers Care Compo Caster Name Role Phone [facility] Unavailable Unavailable Problems Combined list of problems from Department of Defense and Veterans Affairs facilities. It does not include entries that were removed or entered in error. Problem Status Onset Date Problem Type Date of Resolution Comments Source Hyperbilirubinemia Active 2021 Condition Unknown Organization Shoulder Pain ([facility] [id number]) Active 2020 Condition Unknown Organization Cervical radiculopathy Active 2020 Condition Unknown Organization Mixed Hyperlipidemia ([facility] [id number]) Active 2020 Condition Unknown Organization Family history of cancer of colon Active 2020 Condition Unknown Organization Chronic Pain Due to Injury ([facility] [id number]) Active 2020 Condition Unknown Organization Migraine Active 2020 Condition Unknown Organization Obstructive Sleep Apnea Syndrome ([facility] 23273982) Active 2020 Condition Unknown Organization OA - Osteoarthritis ([facility] [id number]) Active 2020 Condition Unknown Organization Past history of procedure1 Active 2020 Condition 04/17/2021 - KORY [place]REL[facility]
childhood tonsillectomy and adenoidectomy

1 - KORY [place]
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

1 - [facility]ORY [place]
2005 right knee arthroscopic surgery

1 - [facility]ORY [place]
1993 wisdom teeth extractions (4)

1 - [facility] [place]
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
secondary to cholecystectomy Unknown Organization Tinnitus ([facility] 14247513) Active 2020 Condition Unknown Organization Cervical radiculopathy Active Condition [facility] Chronic Pain Due to Injury ([facility] [id number]) Active Condition [facility] Dumping syndrome Active Condition Apr 10, 2021 Entered By: KORY IRELAND Comment: secondary to cholecystectomy [facility] Family history of cancer of colon Active Condition [facility] Hyperbilirubinemia Active Condition [facility] Migraine Active Condition [facility] Mixed Hyperlipidemia ([facility] [id number]) Active Condition [facility] OA - Osteoarthritis ([facility] 022595208) Active Condition [facility] Obstructive Sleep Apnea Syndrome ([facility] 49343253) Active Condition [facility] Past history of procedure Active Condition Apr 10, 2021 Entered By: KORY IRELAND Comment: 1996 laparoscopic cholecystectomyJun 2020 Entered By: KORY IRELAND Comment: 2005 right knee arthroscopic surgeryJun 2020 Entered By: KORY IRELAND Comment: 2017 left great toe benign bone tumor resectionJun 2020 Entered By: KORY IRELAND Comment: childhood tonsillectomy and adenoidectomyJun 2020 Entered By: KORY IRELAND Comment: 1993 wisdom teeth extractions (4) [facility] Plantar fasciitis Active Condition [facility] Shoulder Pain ([facility] [id number]) Active Condition [facility] Tinnitus ([facility] [id number]) Active Condition [facility] Medications Combined list of outpatient medications from Department of Defense and Veterans Affairs facilities.Medications provided include 1) outpatient medications from the last 15 months, and 2) patient-reported medications. Medication Details Route Status Patient Instructions Prescription Expires Prescription Number Last Dispense Date Ordering Provider Order Date Order Qty Source MULTIVITAMI NS CAP/TAB TAKE ONE TABLET BY MOUTH ONCE A DAY ORAL ACTIVE [place]IDE [place] 2020 [facility] Allergies, Adverse Reactions, Alerts Combined list of allergies from Department of Defense and Veterans Affairs facilities. It does not include entries that were removed or entered in error. Substance Category Reaction Severity Reaction type Status Date Reported Comments Source MORPHINE Propensity to adverse reactions to drug (finding) Eruption, Acute respiratory distress, Airway constriction active 0 [facility] MORPHINE Propensity to adverse reactions to drug (finding) Anaphylaxis active 1 [facility] morphine Drug allergy Anaphylaxis (disorder), Airway constriction (finding), Acute respiratory distress (finding), Eruption of skin (disorder) Active One or More [facility] Facilitie s EST Immunizations Combined list of available immunizations from the Department of Defense and Veterans Affairs facilities. Immunization Series Date Given Administered By Site Reaction Lot Number CVX Code Drug Transfer Agent Status Comments Source COVID-19 (PFIZER), MRNA, LNP-S, PF, 30 MCG/0.3 ML DOSE 3 2020 208 complet ed [facility] COVID Vaccine Pfizer 2020 208 complet ed COVID Vaccine Pfizer 10/15/21 Recorded Ambulat ory Pharmac y INFLUENZA, UNSPECIFIED FORMULATION 2020 88 complet ed [facility] influenza virus vaccine, unspecified 2020 88 complet ed influenza virus vaccine, unspecifi ed 09/11/21 Recorded Ambulat ory Pharmac y COVID-19 (PFIZER), MRNA, LNP-S, PF, 30 MCG/0.3 ML DOSE 2 2020 208 complet ed [facility] COVID Vaccine Pfizer 2020 208 complet ed COVID Vaccine Pfizer 02/12/21 Recorded Ambulat ory Pharmac y COVID-19 (PFIZER), MRNA, LNP-S, PF, 30 MCG/0.3 ML DOSE 1 2020 208 complet ed [facility] COVID Vaccine Pfizer 2020 208 complet ed COVID Vaccine Pfizer 01/22/21 Recorded Ambulat ory Pharmac y INFLUENZA, INJECTABLE, QUADRIVALENT 2018 158 complet ed 02, Partner: [facility]. Administe red by: NANDO NÚÑEZ (EAJ=[phone]). Partner 27 Lot#: [id number] Mfr: SEQIRUS; Dosage: 0.5 [facility] influenza, injectable, quadrivalent 2018 158 complet ed Result Comment: Partner: [facility]. Administe red by: NANDO NÚÑEZ (DTQ=[id number] [id number]). Partner 27 Lot#: [id number] 5 Mfr: SEQIRUS; Dosage: 0.5 Ambulat ory Pharmac y TDAP 2015 115 complet ed [facility] tetanus, diphtheria, acellular pertu is 2015 115 complet ed tetanus, diphtheri a, acellular pertussis 06/25/16 Recorded Ambulat ory Pharmac y Vital Signs Combined list of inpatient and outpatient Vital Signs from Department of [facility] and [facility], ranging from 12 months to all on record, depending upon the facility. Vital Sign Value Date Comments Source Systolic Blood Pressure 135 mm[Hg] 06/16/20 18:57:24 One or More [facility] Facilities EST Diastolic Blood Pressure 82 mm[Hg] 06/16/2021 18:57:24 One or More [facility] Facilities EST Systolic Blood Pressure 123 mm[Hg] 12/20/19 16:32:35 One or More A Facilities EST Diastolic Blood Pressure 76 mm[Hg] 12/20/2021 16:32:35 One or More A Facilities EST Systolic Blood Pressure 148 mm[Hg] 04/14/20 18:16:18 One or More A Facilities EST Diastolic Blood Pressure 90 mm[Hg] 04/14/2020 18:16:18 One or More [facility] Facilities EST Encounters Combined list of: 1) Encounters from Department of [facility] facilities going backup to the last 18 months, not all [place] inpatient encounters are included; 2) Encounters from the Department of [facility] facilities going backup to 280 months. Location Location Details Encounter Type Encounter Number Reason For Visit Attending Provider ADM Date DC Date Status Disposition Source [facility] Outpatient Encounter [id number] EDUIN HANDLEY 03/04 [facility] Outpatient Encounter [id number] ASHISH SINGH 03/23 [facility] Procedures Combined list of: 1) Procedures from [facility] facilities going back up to thelast 18 months, not all [place] non-surgical procedures are included; 2) All procedures from the Department of Defense facilities. Procedure Procedure Type Code Date Perfomer Comments Sour e COLONOSCOPY, FLEXIBLE; DIAGNOSTIC, INCLUDING COLLECTION OF SPECIMEN(S) BY BRUSHING OR WASHING, WHEN PERFORMED (SEPARATE PROCEDURE) Colonoscopy, flexible, proximal to splenic flexure; diagnostic, with or without collection of specimen(s) by brushing or washing, with or without colon decompression (separate procedure) [id number] 07/18/2021 Ambulatory Pharmacy Social History Combined list of available smoking, tobacco, and other social history from Department of Defense and Veterans Affairs facilities. Social History Type Response Date Comment Sourc e Tobacco smoking status NHIS [place]-TOBACCO NEVER USED 06/19/2022 [facility] History of tobacco use [place]-TOBACCO NEVER USED 04/17/2021 [facility] Sex Representation Male (finding) 05/31/2020 Un known Organization Sexual Orientation [facility] Gender identity Amb[facility] Pharm[facility] Assessment and Plan Combined list of future care activities from Department of Defense and [facility] facilities (e.g., assessment and plan notes, appointments, orders, and referrals). Additional future care activities may be listed in the Plan of Care section. Result Assessment and Plan Date Source Assessment and Plan No data available for this section 02/19/2025 Ambulatory Pharmacy Functional Status Combined list of recent functional and cognitive assessments recorded at [facility] [place] Functional [place] Measurement (FIM) Scale: 1 = Total Assistance (Subject = 0% +), 2 = Maximal Assistance (Subject = 25% +), 3 = Moderate Assistance (Subject = 50% +), 4 = Minimal Assistance (Subject = 75% +), 5 = Supervision, 6 = Modified [place] (Device), 7 = Complete [place] (Timely, Safely). Assessment Date/Time Source Assessment Type Assessment Skill Assessment Score Assessment Details No data available for this section
--- OUTSIDE RECORDS SUMMARY | 2025-02-19 12:51 | XMS_ITS | CONTINUITY OF CARE DOCUMENT ---
Author Name erick suarez Address Unknown Organization [facility] Address [address] [place] [address] Phone [phone] Care Team Providers Care Bomb Squad Commander Name Role Phone Agusto Harvey DO Unavailable Santiago Desouza DO Unavailable [phone] PROBLEMS Condition Status Date Provider Notes Cardiovascular screening active Altagracia Marie INS[employer]ANCE PROVIDERS Payer name Policy type / Coverage type [place] [employer] SELF PAY TREATMENT PLAN Date Name CT, Coronary Calcium Score HISTORY OF PROCEDURES Procedure Date Procedure Name Provider Procedure Notes S tatus CT- Coronary CA score Agusto Harvey DO completed
== END 2025-02-19 12:49 | disposition home or self-care (01) ==
PROVIDERS: PCP Emergency Medicine; Visit Provider Emergency Medicine
DX: N28.1 Cyst of kidney, acquired (principal); K76.0 Fatty (change of) liver, not elsewhere classified
CPT/HCPCS: 74183; A9577

== ENCOUNTER 2025-07-07 08:31 | Outpatient (CLI) | payer OTHER, SELFPAY ==
--- OUTSIDE RECORDS SUMMARY | 2025-04-26 09:00 | XMS_ITS | Encounter Summary ---
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 This section includes the names of all active insurance providers for the patient. Insurance Provider Type of Coverage Plan Name Start of Policy Coverage End of Policy Coverage Group Number Member ID Insurance Provider's Telephone Number Policy Lee's Name Patient's Relationship to Policy Lee [facility] [id number] [facility] Nov 04, 2024 [facility] [id number] JAMES MCCABE PATIENT Selected Encounter This section includes the information on record at [place] for the Encounter. Date/Time Encounter Type Encounter Description Reason Provider Source Apr 26, 2025 02:00 PM TELEHEALTH FACILITY FEE PRIMARY CARE/MEDICINE ICD-10-CM M19.90 Unspecified osteoarthritis, unspecified site CHE DE PAZ Antoine Encounter Template Text not used by [place] Assessments - Encounter Diagnoses This section includes the primary and secondary diagnoses documented for the Encounter. Date/Time Primary/Secondary Diagnosis Diagnosis Name Provider Source Apr 26, 2025 02:29 PM PRIMARY Unspecified osteoarthritis, unspecified site PLACIDO HERNANDEZ [facility] Apr 26, 2025 02:29 PM SECONDARY Contact with and exposure to other hazardous substances CHE DE PAZ [facility] Apr 26, 2025 02:29 PM SECONDARY Mixed hyperlipidemia PLACIDO HERNANDEZ [facility] Apr 26, 2025 02:29 PM SECONDARY Plantar fascial fibromatosis PLACIDO HERNANDEZ [facility] Plan of Treatment: Future Appointments (+ 6 months) and Future Tests (+/- 45 days) The Plan of Treatment section includes future care activities for the [facility] [place] [facility] This section includes future appointments and future orders which are active, pending or scheduled. Future Appointments This section includes appointments that were scheduled to occur 6 months from the date of the Encounter, up to a maximum of 20 appointments. The data comes from all [facility]. Appointment Date/Time Appointment Type Appointme nt Facility Name Apr 30, 2025 01:00 PM AMBULATORY - MEDICINE [facility] Active, Pending, and Scheduled Orders This section includes a listing of several types of active, pending, and scheduled orders, including clinic medications orders, diagnostic test orders, procedure orders and consult orders; where the start date of the order is 45 days before the date of the Encounter or 45 days after the date of theEncounter. The data comes from all [facility]. Test Date/Time Test Type Test Details Facility Name May 04, 2025 12:00 AM Laboratory - Chemistry Order [id number] BLOOD [facility] May 04, 2025 12:00 AM Laboratory - Chemistry Order CBC BLOOD [facility] May 04, 2025 12:00 AM Laboratory - Chemistry Order COMPREHENSIVE METABOLIC PANEL GREEN LI/HEP BLD/PLAS PLASMA SP [facility] May 04, 2025 12:00 AM Laboratory - Chemistry Order VITAMIN D, 25-HYDROXY GOLD/RED SST SERUM SP [facility] May 04, 2025 12:00 AM Laboratory - Chemistry Order PROST. SPECIFIC AG.(PB-STL) GOLD/RED SST SERUM [facility] May 04, 2025 12:00 AM Laboratory - Chemistry Order LIPID PANEL (STL) GREEN LI/HEP BLD/PLAS PLASMA SP [facility] May 04, 2025 12:00 AM Laboratory - Chemistry Order TSH W/ REFLEX FT4 (STL) GREEN LI-HEP PLASMA SP [facility] Vital Signs: All taken on the encounter date This section contains inpatient and outpatient Vital Signs collected on the date of the Encounter. Date/Time Temperature Pulse Blood Pressure Respiratory Rate SP02 Pain Height Weight Body Mass Index Source Apr 26, 2025 02:17 PM 98.8 F 80 /min 106/67 mm[Hg] 20 /min 97 % 2 69 in 187 lb 28 [facility] Social History: Smoking Status (Most current) and Tobacco Use (All prior to encounter date) This section includes the most current, and the historical, smoking and tobacco- related health factors from the [place] facility where the Encounter took place. Current Smoking Status This section includes the most current smoking, or tobacco-related health factor, from the [place] facility where the Encounter took place. Date/Time Current Smoking Status Comment Facil ity Apr 26, 2025 02:00 PM VA-TOBACCO NEVER U SED CIGARETTES [facility] Tobacco Use History This section includes a history of the smoking, or tobacco-related health factors, that were collected on or before the date of the Encounter. The data comes from the [place] facility where the Encounter took place. Date/Time Smoking Status/Tobacco Use Comment F acility Apr 26, 2025 02:00 PM VA-TOBACCO NEVER U SED OTHER TYPE [facility] Jun 19, 2022 10:30 AM VA-TOBACCO NEVER USED [facility] Apr 17, 2021 03:00 PM VA-TOBACCO NEVER USED [facility] Encounter Notes: All associated encounter notes This section contains the clinical notes associated to the Encounter. Date/Time Encounter Note(s) Provider Source Apr 26, 2025 02:26 PM PRIMARY CARE NOTE: LOCAL TITLE: PRIMARY CARE PROVIDER ESTABLISHED VISIT STL STANDARD TITLE: PRIMARY CARE NOTE DATE OF NOTE: APR 26, 2025@14:26 ENTRY DATE: APR 26, 2025@14:26:32 AUTHOR: CHE DE PAZ COSIGNER: URGENCY: STATUS: COMPLETED Visit conducted by synchronous video telehealth; patient verbal consent obtained. Location and emergency point of contact and/or number confirmed was notified of right to decline Telehealth services and eligibility for other options. Crozier consented to be seen via Video into the Clinic (CVT). Verified Patient's location and contact information for this appointment: [facility] [address] [place] [address] A survey of the environment was conducted and all participants identified in the room and the exam door is closed. Providers: Take measures to minimize the noise outside the clinic room by ensuring the room's door is closed, and a sign is posted on the door to indicate a telehealth visit is in session. Workstation: [facility] [id number]. [facility] telemedicine HUB. Crozier's identity was confirmed with two (2) forms of identification: Full Name, full SSN, or Date of . education provided and verbal consent requested to conduct Clinical Video Telehealth for this encounter and subsequent encounters. The Crozier was given the option to be seen using an in-person face to face visit if desired. Crozier informed this visit is confidential, secure and will not be recorded. Veterans questions answered. Crozier verbalized understanding and consents to be seen today using Clinical Video Telehealth. This visit was conducted today by: _x_ CVT (audio/visual) Connection Patient is 49 and WHITE Self Identified Gender - Man Reason for visit:Scheduled follow-up Chief Complaint: late f/u, last seen 06/2022 History of Present Illness: States he has been seeing a nonva provider from the outside. Reports a h/o kidney stones, says he does not drink alcohol, no smoking or drugs, lives as healthy as he can. States he had gallstones when he was young, thinks there is a family history of kidney stones, his father and sisters have kidney stones. Reports last year he had kidney stones and had surgery, since that he has been followed by a nonva gritting machine operator. He says he has had no other issues, he was on Flomax but not currently. His nonva provider put him on Crestor 10mg daily hs, told him he was borderline. Today he wants an annual f/u with bloodwork. States he gets waves of anxiety that comes out of no where, deep depression and sleeps a lot. Low/mid back pain - states he is always in pain, says he does not really take anything for it, upper and lower back goes numb if standing on concrete for more than [address] Carrillo in [place] Problem List: 1) OA - Osteoarthritis (SCT 422151649) 2) Tinnitus (SCT 10232992) 3) Chronic Pain Due to Injury ([facility] [id number]) 4) Plantar fasciitis 5) Past history of procedure 6) Obstructive Sleep Apnea Syndrome (SCT 00001949) 7) Migraine 8) Dumping syndrome 9) Family history of cancer of colon 10) Mixed Hyperlipidemia (SCT 803025453) 11) Cervical radiculopathy 12) Shoulder Pain ([facility] [id number]) 13) Hyperbilirubinemia Immunization: ADMINISTERED Immunization Series Date Facility Reaction Info COVID-19 (Ivaldi), MRNA, LNP-S, * 3 10/15/2021 [facility]* COVID-19 (PFIZER), MRNA, LNP-S, * 2 02/12/2021 No Site COVID-19 (PFIZER), MRNA, LNP-S, * 1 01/22/2021 No Site INFLUENZA, UNSPECIFIED FORMULATI* 09/11/2021 [facility]* TDAP 06/25/2016 No Site CONTRAINDICATED No data available REFUSED ======= No data available * Value is truncated; see the Detailed Immunizations Health Summary Component[DIM] for complete text FH: mother had stroke, in 2011 father living no heart disease Social History: , lives with his and daughter(12), 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 Allergies:MORPHINE Active and Recently Outpatient Medications (excluding Supplies): Active Non-VA Medications Status 1) Non-VA MULTIVITAMIN CAP/TAB 1 TABLET BY MOUTH ONCE A DAY ACTIVE Review of Systems: GENERAL: no fevers, chills, night sweats, fatigue CV: no cp, lucas, edema, claudication or palpitation RESP: no sob, cough, wheezes or hemoptysis : no hematuria, dysuria, frequency, nocturia MUS: no joint pain Neuro: no headaches, lightheadedness, dizziness, numbness. No weakness or gait difficulty. Psych: + depression and + anxiety, no SI or HI Endo: no symptoms of hypo/hyperthyroidism or hypo/hyperglycemia Physical Exam VITALS (most recent, as listed in the electronic record): B/P: 106/67 (04/26/2025 14:17) Pulse: 80 (04/26/2025 14:17) Temperature: 98.8 F [37.1 C] (04/26/2025 14:17) Weight: 187 lb [84.82 kg] (04/26/2025 14:17) Height: 69 in [175.3 cm] (04/26/2025 14:17) BMI: 27.7 Pain: 2 (04/26/2025 14:17) (0-10 scale) General appearance: cooperative, well-nourished, in no distress HEENT: sclera/conjunctiva clear Cardiovascular: RRR, no murmur, no gallop Respiratory: CTA, no wheezes, crackles or rhonchi ABD/GI: normal contour, bs + M/S: normal gait and posture Psych: normal affect Neuro: Alert and oriented x 3 Skin: normal color and texture Data Review: n/a, labs ordered Assessment/Plan: # plantar fasciitis with left foot pain - continues with podiatry outside [place]; states he wants orthotic for his left foot wants podiatry referral but says he can hold off for now # lower and mid back pain - he plans to trial acupuncture # Hypercholesterolemia - now takes Crestor 10mg daily per nonva provider - lipids with labs # Depression - no SI/HI, states he wants referral - teams message sent to [facility] for f/u # HM - labs ordered; [facility] colonoscopy scheduled 07/22/2025, last was about 5 years ago at [place] 07/18/2021; reports he does vision screening privately. RTC: 1 year and prn Time spent on date of visit including face to face time, data review, and chartin minutes CLINICAL REMINDERS COMPLETED Toxic Exposure Screening Follow-Up - NS,P: Exposure Concern(s): 04/26/2025 Airborne Hazards/Open Burn Pit - Toxic Exposure Concern Follow-up Question(s): 04/26/2025 No Questions - Toxic Exposure Concern /caregiver has no health or medical questions related to their self-reported environmental exposure ([place]). The following connections were provided to the /caregiver: No connections needed at this time Alcohol Use Screen (AUDIT-C) - V: Alcohol Screen: SCREEN FOR ALCOHOL (AUDIT-C) An alcohol screening test (AUDIT-C) was negative (score=0). 1. How often did you have a drink containing alcohol in the past year? Consider a drink to be a 12 ounce can or bottle of regular beer, 8 ounces of malt liquor, a 5 ounce glass of table wine, or a 1.5 ounce shot of liquor (like scotch, gin, or vodka). Never 2. How many drinks containing alcohol did you have on a typical day when you were drinking in the past year? Response not required due to responses to other questions. 3. How often did you have six or more drinks on one occasion in the past year? Response not required due to responses to other questions. /law/ CHE DE PAZ MSN AGNP-C [facility] NURSE PRACTITIONER Signed: 04/26/2025 18:10 CHE DE PAZ [facility] Apr 26, 2025 02:20 PM NURSING NOTE: LOCAL TITLE: V15 PACT FACE TO FACE NOTE STL STANDARD TITLE: NURSING NOTE DATE OF NOTE: APR 26, 2025@14:20 ENTRY DATE: APR 26, 2025@14:20:30 AUTHOR: PLACIDO HERNANDEZ EXP COSIGNER: URGENCY: STATUS: COMPLETED Provider Visit: Patient Identifiers : Full Name Date of Reason for visit: Established Follow-Up 49 year old male. Pt is alert and ambulatory. Pt is able to make his needs known and states he had r side kidney stone removal at [facility] May 2024. Pt states he would like a referral to mental health. Pt states he has been dealing with anxiety. Mode of Arrival: Ambulatory Allergy Review: MORPHINE APR 17, 2021 (HISTORICAL) Symptoms: ANAPHYLAXIS Allergy list reviewed and remains current. Recent Vital Signs: Temperature: 98.8 F [37.1 C] (04/26/2025 14:17) Pulse: 80 (04/26/2025 14:17) Respiration: 20 (04/26/2025 14:17) B/P: 106/67 (04/26/2025 14:17) Pain: 2 (04/26/2025 14:17) Wt.: 187 lb. [84.82 kg] (04/26/2025 14:17) Hit: 69 in [175.3 cm] (04/26/2025 14:17) BMI: 27.7 POX: 97% (04/26/2025 14:17) Blood sugar glucometer reading: N/A PERSONAL HEALTH INVENTORY Notes: No data available for PHI note titles PERSONAL HEALTH INVENTORY - MAP: 12/20/2021 Personal Health Plan [place], [place], Purpose (MAP) my little ones, family, occupied with school 04/17/2021 Personal Health Plan [place], [place], [place] (MAP) My family What matters most to you in your life right now? Crozier's Response: family and kids WHOLE HEALTH SHARED GOALS: PERSONAL HEALTH PLAN - SHARED GOALS: 12/20/2021 Php Shared Goals I think I'm good 04/17/2021 Php Shared Goals For me just kind of what we're doing SHARED GOALS staying on top of my health Would you like to discuss any personal problem, family problem, alcohol use, drug use, or a mental or emotional illness? Yes is not in active care and requests to speak to [facility] Provider, warm hand-off initiated Che De Paz NP My [facility] ([facility]), please select appointment type: Face to face: Yes-Do you have an upgraded (Premium) account which gives you the added benefit of Secure Messaging with your Primary Care Provider and refilling your prescriptions online? Contact provided Primary Care phone number and encouraged to call if any questions or concerns. Review that after hours nurse line [phone] and emergency room are available 27/05 for patient use. Contact verbalized good understanding. Suicide Screen - V: C-SSRS Screening [place] Suicide Severity Rating Scale (C-SSRS) screener 1. Over the past month, have you wished you were or wished you could go to sleep and not wake up? No 2. Over the past month, have you had any actual thoughts of killing yourself? No 3. Over the past month, have you been thinking about how you might do this? Response not required due to responses to other questions. 4. Over the past month, have you had these thoughts and had some intention of acting on them? Response not required due to responses to other questions. 5. Over the past month, have you started to work out or worked out the details of how to kill yourself? Response not required due to responses to other questions. 6. If yes, at any time in the past month did you intend to carry out this plan? Response not required due to responses to other questions. 7. In your lifetime, have you ever done anything, started to do anything, or prepared to do anything to end your life (for example, collected pills, obtained a gun, gave away valuables, went to the roof but didn't jump)? No 8. If YES, was this within the past 3 months? Response not required due to responses to other questions. 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 Printed information was offered and provided if desired. No questions at this time /caregiver was informed of local points of contact. Contact information for local resources: [facility] Registry Exam Program: [phone] Eligibility: [phone] [place] [id number] PHYLICIA [id number] [facility] Registry Exam Program: [phone] [place] Navigator: [id number] Environmental Health Coordinator: [id number] [facility] Registry Exam Program: [phone] [id number] Eligibility: [phone] [id number] Toxic Exposure Screening Follow-Up reminder is needed. Name of person notified: Che De Paz NP COVID-19 Immunization-L,N,P,PH,U: Refused Moderna Monovalent COVID-19 vaccine Immunization: COVID-19 (MODERNA), MRNA, LNP-S, PF, 50 MCG/0.5 ML (AGES 12+ YEARS) Refusal Reason: PATIENT DECISION Patient refuses all immunization(s) in the COVID-19 group Date Documented: 04/26/25 14:28 Refused Pfizer Monovalent COVID-19 vaccine Immunization: COVID-19 (PFIZER), MRNA, LNP-S, PF, FARHEEN-SUCROSE, 30 MCG/0.3 ML (AGES 12+ YEARS) Refusal Reason: PATIENT DECISION Patient refuses all immunization(s) in the COVID-19 group Date Documented: 04/26/25 14:28 Refused Novavax COVID-19 vaccine Immunization: COVID-19 (NOVAVAX), SUBUNIT, RS-NANOPARTICLE, ADJUVANTED, PF, 5 MCG/0.5 ML (AGES 12+ YEARS) Refusal Reason: PATIENT DECISION Patient refuses all immunization(s) in the COVID-19 group Date Documented: 04/26/25 14:28 Depression Screening - V: Perform PHQ-2 A PHQ-2 screen was performed. The score was 2 which is a negative screen for depression. Over the past two weeks, how often have you been bothered by the following problems? 1. Little interest or pleasure in doing things Several days 2. Feeling down, depressed, or hopeless Several days Homelessness/Food Insecurity Screen - DI,L,N,P,PH,PS,S,U: In the past 2 months, have you been living in stable housing that you own, rent, or stay in as part of a household? Yes - Living in stable housing. Are you worried or concerned that in the next 2 months you may NOT have stable housing that you own, rent, or stay in as part of a household? No - Not worried about housing near future The reports the following: Within the past 12 months, you worried whether your food would run out before you got money to buy more. Never true Within the past 12 months, the food you bought just didn't last and you didn't have money to get more. Never true Influenza Immunization - L,N,P,PH,U: No influenza vaccination was received during the recent influenza season. Tobacco Use Screening - AT,DE,L,M,N,P,PH,PS,RT,S,U: The patient has never smoked cigarettes. The patient has never used other types of tobacco. Herpes Zoster (Shingles) Vaccine - L,N,P,PH,U: Prior Herpes Zoster vaccination Herpes zoster (shingles) vaccine given previously - written records available Zoster Recombinant (Shingrix): Documented: ZOSTER RECOMBINANT Historical Date Administered: Jun 25, 2016 Series: Series 1 Outside Location: [facility] Information Source: FROM OTHER REGISTRY Learning Assessment: - * This patient's learning ABILITIES, BARRIERS to learning, CULTURAL and CHEONDOISM beliefs, and learning PREFERENCES were assessed. Following are findings of note: Patient reads well. Patient has the following hearing/auditory barrier(s) to consider when teaching: Hard of hearing. Patient has the following speech barrier to consider when teaching: No speech barrier identified. LANGUAGE Patient reports that [place] is preferred language for healthcare. Patient has the following language barrier to consider when teaching: No language barrier has been identified. Patient has the following vision barrier(s) to consider when teaching: The following barrier has been identified:, Requires glasses/contacts for reading Patient has the following dexterity/mobility barrier(s) to consider when teaching: No dexterity/mobility barrier has been identified. Patient has the following cognitive/memory barrier(s) to consider when teaching: No cognitive/memory barrier has been identified. Patient has the following emotional/psychological barrier(s) to consider when teaching: The following barrier has been identified., Other anxiety/depression Patient has the following social support deficit(s) to consider when teaching: No social support issues have been identified. Patient reports learning preference is attending one-to-one or group demonstrations. Patient reports learning preference is looking at pictures or viewing videos. * /es/ PLACIDO HERNANDEZ Licensed Practical Nurse Signed: 04/26/2025 14:35 PLACIDO HERNANDEZ [facility]
--- OUTSIDE RECORDS SUMMARY | 2025-04-30 08:00 | XMS_ITS | Encounter Summary ---
Author Name [facility] Address [address] [place] [address] Care Team Providers Care A P Manager Name Role Phone XIOMARA BOND Primary Care Provider Unavailabl e Insurance Providers: [...] Lee's Name Patient's Relationship to Policy Lee [facility] 2024 [facility] Nov 04, 2024 [facility] [id number] JAMES MCCABE PATIENT Selected Encounter This section includes the information on record at [place] for the Encounter. Date/Time Encounter Type Encounter Description Reason Provider Source Apr 30, 2025 01:00 PM PSYTX W PT 45 MINUTES [facility] INDIV ICD-10-CM F41.1 Generalized anxiety disorder REBA EM Antoine Encounter Template Text not used by [place] Assessments - Encounter Diagnoses This section includes the primary and secondary diagnoses documented for the Encounter. Date/Time Primary/Secondary Diagnosis Diagnosis Name Provider Source Apr 30, 2025 03:45 PM PRIMARY Generalized anxiety disorder [facility] Apr 30, 2025 03:45 PM SECONDARY Major depressive disorder, recurrent, moderate [facility] Plan of Treatment: Future Appointments (+ 6 months) and Future Tests (+/- 45 days) The Plan of Treatment section includes future care activities for the patient from all [place] treatmentfacilities. This section includes future appointments and future orders which are active, pending or scheduled. Active, Pending, and Scheduled Orders This section includes a listing of several types of active, pending, and scheduled orders, including clinic medications orders, diagnostic test orders, procedure orders and consult orders; where the start date of the order is 45 days before the date of the Encounter or 45 days after the date of theEncounter. The data comes from all [place] treatment facilities. Test Date/Time Test Type Test Details Facility Name May 04, 2025 12:00 AM Laboratory - Chemistry Order HGA1C BLOOD SP [facility] May 04, 2025 12:00 AM Laboratory - Chemistry Order CBC BLOOD SP [facility] May 04, 2025 12:00 AM Laboratory - Chemistry Order COMPREHENSIVE METABOLIC PANEL GREEN LI/HEP BLD/PLAS PLASMA SP [facility] May 04, 2025 12:00 AM Laboratory - Chemistry Order PROST. SPECIFIC AG.(PB-STL) GOLD/RED SST SERUM SP [facility] May 04, 2025 12:00 AM Laboratory - Chemistry Order VITAMIN D, 25-HYDROXY GOLD/RED SST SERUM SP [facility] May 04, 2025 12:00 AM Laboratory - Chemistry Order LIPID PANEL (STL) GREEN LI/HEP BLD/PLAS PLASMA SP [facility] May 04, 2025 12:00 AM Laboratory - Chemistry Order TSH W/ REFLEX FT4 (STL) GREEN LI-HEP PLASMA SP [facility] Encounter Notes: All associated encounter notes This section contains the clinical notes associated to the Encounter. 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) INFECTIONS OF THE SKIN (0% SC) MIGRAINE HEADACHES (0% SC) 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) TINNITUS (10% SC) FLAT FOOT CONDITION (30% SC) LUMBOSACRAL OR CERVICAL STRAIN (20% SC) HEMORRHOIDS (0% SC) DEGENERATIVE ARTHRITIS OF THE SPINE (20% SC) LIMITED EXTENSION OF KNEE (30% SC) LIMITED FLEXION OF FOREARM (10% SC) SLEEP APNEA SYNDROMES (30% SC) LIMITED MOTION OF ARM (20% SC) NEUROSIS (30% SC) FACIAL SCARS (0% SC) 2ND DEGREE MICHAUD (0% SC) LIMITED MOTION OF WRIST (10% SC) LIMITED MOTION OF ARM (20% SC) TUBERCULOSIS OF THE TESTIS (0% SC) 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 PROCEDURES: Brief Behavioral Health Assessment. Informed about *limits to confidentiality - charting/consultation with medical team - actions for safety of self/dependents *duration and purpose of this appointment as well as the potential risk, benefits, and complications of participating in treatment. The [facility] expressed understanding and consented to participate in services. Clinical Reminders are Due: not due Urgency of need for care: [x] Routine [ ] Stat Appropriate setting for care: [x] Outpatient [ ] ER REASON FOR REFERRAL: referred to Primary Care Psychology for a brief behavioral health assessment to address issues related to: Presenting Problem (Detail symptoms): [facility] reporting: - hx combat exposure - medical concerns r/t kidneys, adrenaline dump - sleep 10-12 hours - mood: depressed, empty, hollow -sleep initiation and maintenance concerns, fluctuates with sleeping 10-12 -uses CPAP intermittently, encouraged to -low energy, low motivation - I feel anxious, then an adrenalin crash described as feeling low - racing thoughts r/t stressors: 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, current physical concerns (back pain, kidney issues), home improvement projects shell fitzgerald, financial stress - difficulty relaxing Problem History (Duration/Frequency/Intensi ty): [facility] reporting: -Duration: ~3months -Frequency: more days than not -Intensity: 4-5/10 Treatment History for Problem: [facility] reporting: -Psychotherapy: yes in past for depression -Medication: denied Factors that Improve/Exacerbate Problem, if applicable: reporting: -Improves: talking, -Exacerbates: just a feeling that comes on, stressors; I feel trapped at home as stay at home dad How Presenting Problem Impacts the Following: [facility] reporting: -Sleep: see above -Work/School: FT 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 Discussed measurement-based care (MBC) and self-monitoring with the . Oriented the [place] to completing MBC through [employer] Touch. Reminded the [facility] that the responses are not reviewed in real time and encouraged them to contact this provider or the care team directly with any concerns or questions. Reviewed potential risks (e.g., privacy concerns)and benefits (e.g., ease and convenience). Reviewed clear guidelines on what actions the [facility] should take if experiencing an acute MH crisis (i.e., contact the Veterans Crisis Line (VCL), call 911, go to the nearest emergency room, etc.). [facility] consents to use the of the [employer] application consistent with the agreed upon parameters (e.g., not to be used for urgent communications). Symptom Measurements: sent via [employer] but not completed at time of note writing. Will add if/when completes. LETHALITY ASSESSMENT -Are you having thoughts of harming yourself or others? denied -Any history of suicide attempts: denied CSSRS: APR 30, 2025[x]negative [ ]positive -Risk Factors: NA -Protective Factors: Help-seeking, future-oriented, strong supports, enjoyment of life, absence of SI, intent, or plan, no history of SI, suicide attempts, or self-harm behavior. -Risk level: [x]LOW [ ]MODERATE [ ]HIGH -CLINICAL JUDGMENT AND DISPOSITION: In consideration of relevant risk and protective factors, the did NOT appear to be at imminent risk for suicide or homicide at this time and IS sustainable at the current level of care. -Any history of violence: denied -Any current HI or aggressive urges: denied -Any current concerns related to abuse, neglect, exploitation, and interpersonal violence: denied MENTAL STATUS: [x] Within normal limits [ ] Other: ASSIST PHASE: was provided with tools for self-management including: [x] Handouts on: -Anxiety, provided by Docstoc website -Depression, provided by Docstoc website [x]Skills training in: -Deep breathing to decrease fight/flight response and increase relaxation response -Identifying how events, thoughts, and emotions are all connected using examples from 's life [x] Education regarding: -Impact of poor sleep on stress and mood -Impact of caffeine on sympathetic nervous system and overall anxiety levels -Characteristics of depression, eliciting examples from 's own life -Characteristics of anxiety, eliciting examples from 's own life -Reviewed rational for using CPAP regularly for improved sleep quality [x] Other: -Bibliotherapy: Sean Garibay: Anxiety First Aid -Provided empathy, reflective listening, and supportive therapy throughout session. -Encouraged continued use of known coping skills. -Normalized current concerns, thoughts, and emotions. -Focused on assets/strengths. GOALS FOR TX: The following goals were developed using shared decision-making with input by the [facility]: -Improve relaxation (evidenced by MBC and self-report) -Improve mood (evidenced by MBC and self-report) IMPRESSIONS: reported symptoms aligning with depression and anxiety. They are agreeable to engaging in [facility] at this time to work on coping. also reported interest in medication management, prefers to contact non-VA PCP about medication. PLAN OF CARE: The following plan was developed collaboratively with the and he/she provided verbal consent to participate in the treatment plan below. [x] Continue Care within [facility]. Behavioral Health Lab Monitoring 2 weeks. RTC in 2 weeks RECOMMENDATONS FOR PCP: Continue care as needed. Outcome and recommendations will be discussed with the referring provider and other relevant PACT team members as needed. EDUCATION: was provided with opportunity to address any questions or concerns. The was provided with written contact information. The is aware of the Suicide Prevention Hotline number ( ) in case of crisis. If experiencing a mental health emergency, the should present to nearest emergency room or call 911 immediately. /law/ Reba Mosquera, PhD Psychologist, [facility] Signed: 04/30/2025 15:45 REBA EM [facility]
--- OUTSIDE RECORDS SUMMARY | 2025-07-07 08:57 | XMS_ITS | Continuity of Care Document ---
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 It does not include entries that were removed or entered in error. Problem Status Onset Date Problem Type Date of Resolution Comments Source Hyperbilirubinemia Active 2021 Condition Unknown Organization Shoulder Pain ([facility] [id number]) Active 2020 Condition Unknown Organization Cervical radiculopathy Active 2020 Condition Unknown Organization Mixed Hyperlipidemia ([facility] [id number]) Active 2020 Condition Unknown Organization Family history of cancer of colon Active 2020 Condition Unknown Organization Chronic Pain Due to Injury ([facility] [id number]) Active 2020 Condition Unknown Organization Migraine Active 2020 Condition Unknown Organization Obstructive Sleep Apnea Syndrome ([facility] 54001086) Active 2020 Condition Unknown Organization OA - Osteoarthritis ([facility] [id number]) Active 2020 Condition Unknown Organization Past history of procedure1 Active 2020 Condition 04/17/2021 - KORY IRELAND
childhood tonsillectomy and adenoidectomy

04/17/20 21 - KORY IRELAND
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

04/17/20 21 - KORY IRELAND
2005 right knee arthroscopic surgery

04/17/20 21 - KORY IRELAND
1993 wisdom teeth extractions (4)

04/10/20 21 - KORY IRELAND
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 DoD Pain in right shoulder Active 2017 Condition [facility] Cervical radiculopathy Active Condition [facility] Chronic Pain Due to Injury ([facility] [id number]) Active Condition [facility] Dumping syndrome Active Condition Apr 10, 2021 Entered By: KORY IRELAND Comment: secondary to cholecystectomy [facility] Exposure to potentially hazardous substance ([facility] [id number]) Active Condition May 05 Entered By: LLOYD AMES Comment: Entered automatically through [facility] Problem List documentation program [facility] Family history of cancer of colon Active Condition [facility] Hyperbilirubinemia Active Condition [facility] Migraine Active Condition [facility] Mixed Hyperlipidemia ([facility] [id number]) Active Condition [facility] OA - Osteoarthritis ([facility] 570931441) Active Condition [facility] Obstructive Sleep Apnea Syndrome ([facility] 90568337) Active Condition [facility] Past history of procedure Active Condition Apr 10, 2021 Entered By: KORY IRELAND Comment: 1996 laparoscopic cholecystectomyJun 2020 Entered By: KORY IRELAND Comment: 2005 right knee arthroscopic surgeryJun 2020 Entered By: KORY IRELAND Comment: 2017 left great toe benign bone tumor resectionJun 2020 Entered By: KORY IRELAND Comment: childhood tonsillectomy and adenoidectomyJun 2020 Entered By: KORY IRELAND Comment: 1993 wisdom teeth extractions (4) [facility] Plantar fasciitis Active Condition [facility] Shoulder Pain ([facility] 51598156) Active Condition [facility] Tinnitus ([facility] [id number]) Active Condition [facility] Need For Prophylactic Antibiotics Inactive Condition Need For Prophylactic Antibiotics: Patient forgot RX for doxycycline 100mg at home. He needs prescription for malaria prophylactic medication. 3 month supply of doxycycline 100mg prescribed today, patient says that his plans on mailing him his prescription that he forgot at home so no need for TMOP RX today. 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 Supportive care. avoid spicy/acidiic food/drinks. Motrin tid , throat lozenge. increase H20 intake. f/u prn worsening sx DoD visit for: screening exam Inactive Condition DoD joint pain, localized in the shoulder Active Condition DoD pain in the hands Inactive Condition [facility] ASSESSMENT OF PATIENT CONDITION WORK STATUS Inactive Condition DoD mismatch of sleep / wake schedule with lifestyle needs Inactive Condition [facility] visit for: follow-up exam Inactive Condition DoD EUSTACHIAN TUBE DYSFUNCTION RIGHT EAR Inactive Condition DoD TRAPEZOID MUSCLE STRAIN LEFT Inactive Condition [facility] Vaccines Prophylactic Need Against Influenza Inactive Condition DoD Need For Vaccination Yellow Fever Inactive Condition DoD Need For Vaccination Typhoid Inactive Condition [facility] visit for: screening exam cardiovascular disorders Inactive Condition DoD Patient Education - Proper Use Of Medications Inactive Condition DoD Patient Education - Medication Adverse Reactions Inactive Condition [facility] Patient Education - Medication Inactive Condition DoD diarrhea Inactive Condition [facility] visit for: administrative purpose Inactive Condition [facility] LUMBAGO Active Condition [facility] SINUSITIS ACUTE Inactive Condition [facility] UPPER RESPIRATORY INFECTION Inactive Condition [facility] SPRAIN RIBS Inactive Condition [facility] 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 DoD MALE INFERTILITY Active Condition [facility] visit for: services physical pre-deployment Inactive Condition [facility] Semen Analysis Sperm Count For Fertility Testing Inactive Condition DoD PLANTAR FASCIITIS Active Condition [facility] Patient Counseling: Inactive Condition DoD ACROCHORDON Inactive Condition [facility] Administrative Evaluation Services Inactive Condition [facility] visit for: occupational health / fitness exam Inactive Condition DoD SORE THROAT Inactive Condition DoD HEMORRHOIDS Active Condition if bleed ing recurs , more frequent will suggest rectal exam. otherwise pt should get cscope at age 38 will consider sooner if more frequent episodes BRBPR. f/u prn DoD abdominal pain in the left upper belly (LUQ) Active Condition diff is large. : splenic enlargment(mono), pancreatic involvment. GERD, PUD, diverticulosis. will get intial albs for workup and eval speen with US to determine if enlarged. pt to f/u if papin recurs. otherwise f/u prn DoD ATYPICAL CHEST PAIN Inactive Condition DoD EPIDIDYMITIS Active Condition DoD Preventive Medicine Establ. 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 DoD HERNIATED DISC (L5 - S1) Inactive Condition Rapid recuperat ion up to this point. Lifted profile restrictions. DoD NONALLOPATHIC LESIONS LUMBAR Active Condition DoD Diagnosis: ICD-10-CM F41.1 Generalized anxiety disorder Active Diagnosis [facility] Diagnosis: ICD-10-CM M19.90 Unspecified osteoarthritis, unspecified site Active Diagnosis [facility] Medications Combined list of outpatient medications from Department of Defense and Veterans Affairs facilities.Medications provided include 1) outpatient medications from the last 15 months, and 2) patient-reported medications. Medication Details Route Status Patient Instructions Prescription Expires Prescription Number Last Dispense Date Ordering Provider Order Date Order Qty Source MULTIVITAMI NS CAP/TAB TAKE ONE TABLET BY MOUTH ONCE A DAY ORAL ACTIVE PACE,VICT OR M 2020 [facility] ROSUVASTATI N CA 20MG TAB TAKE ONE-HALF TABLET BY MOUTH EVERY EVENING ORAL ACTIVE JAMESON M 2024 [facility] Allergies, Adverse Reactions, Alerts Combined list of allergies from Department of Defense and Veterans Affairs facilities. It does not include entries that were removed or entered in error. Substance Category Reaction Severity Reaction type Status Date Reported Comments Source MORPHINE Propensity to adverse reactions to drug (finding) Eruption, Acute respiratory distress, Airway constriction active 0 [facility] MORPHINE Propensity to adverse reactions to drug (finding) Anaphylaxis active 1 [facility] morphine Drug allergy Anaphylaxis (disorder), Airway constriction (finding), Acute respiratory distress (finding), Eruption of skin (disorder) Active One or More A Facilitie s EST MORPHINE {Cla } Drug allergy (disorder) Rash active 4 [facility] Ben COLEMAN ([facility] Immunizations Combined list of available immunizations from the Department of Defense and Veterans Affairs facilities. 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 Status Comments Source MMR 2023 () Not Given MMR DoD Hep A, adult 2023 () Not Given Hep A, adult DoD Tdap 2023 () Not Given Tdap DoD zoster recombinant 2023 () Not Given zoster recombina nt DoD Tdap 2021 ALUL, () Not Given Tdap DoD COVID Vaccine Pfizer 2020 208 complet ed COVID Vaccine Pfizer 10/15/21 Recorded Ambulat ory Pharmac y COVID-19 (PFIZER), MRNA, LNP-S, PF, 30 MCG/0.3 ML DOSE 3 2020 208 complet ed [facility] influenza virus vaccine, unspecified 2020 88 complet ed influenza virus vaccine, unspecifi ed 09/11/21 Recorded Ambulat ory Pharmac y INFLUENZA, UNSPECIFIED FORMULATION 2020 88 complet ed [facility] Influenza, injectable, MDCK, preservative free, quadrivalent 2020 LARRY, () Not Given Influenza , injectabl e, MDCK, preservat efe free, quadrival ent DoD COVID Vaccine Pfizer 2020 208 complet ed COVID Vaccine Pfizer 02/12/21 Recorded Ambulat ory Pharmac y COVID-19 (PFIZER), MRNA, LNP-S, PF, 30 MCG/0.3 ML DOSE 2 2020 208 complet ed [facility] COVID Vaccine Pfizer 2020 208 complet ed COVID Vaccine Pfizer 01/22/21 Recorded Ambulat ory Pharmac y COVID-19 (PFIZER), MRNA, LNP-S, PF, 30 MCG/0.3 ML DOSE [address] [facility] influenza, injectable, quadrivalent 2018 158 complet ed Result Comment: Partner: [facility]. Administe red by: NANDO NÚÑEZ (PCV=[phone]). Partner 27 Lot#: [id number] Mfr: SEQIRUS; Dosage: 0.5 Ambulat ory Pharmac y INFLUENZA, INJECTABLE, QUADRIVALENT 2018 158 complet ed 02, [facility] Administe red by: NANDO NÚÑEZ (REI=[phone]). Partner 27 Lot#: [id number] Mfr: SEQIRUS; Dosage: 0.5 [facility] influenza, injectable, quadrivalent, preservative free 2018 NIYA, () Not Given influenza , injectabl e, quadrival ent, preservat efe free DoD Influenza, injectable, quadrivalent, preservative free 0 2018 150 (MVX) complet ed Influenza , injectabl e, quadrival ent, preservat efe free [facility] measles virus vaccine 0 2017 05 () Not Given measles virus vaccine DoD rubella virus vaccine 0 2017 06 () Not Given rubella virus vaccine DoD mumps virus vaccine 0 2017 07 () Not Given mumps virus vaccine DoD Influenza, injectable, quadrivalent, preservative free 18 [id number] [place], [place] [address]ine (SKB) complet ed Influenza , injectabl e, quadrival ent, preservat efe free [facility] influenza virus vaccine, unspecified formulation 1 2016 88 Transcribed (TRS) complet ed influenza virus vaccine, unspecifi ed formulati on DoD influenza, injectable, quadrivalent, preservative free 2015 ALUL, () Not Given influenza , injectabl e, quadrival ent, preservat efe free DoD Influenza, injectable, quadrivalent, preservative free 1 2015 150 Transcribed (TRS) complet ed Influenza , injectabl e, quadrival ent, preservat efe free DoD tetanus, diphtheria, acellular pertu is 2015 115 complet ed tetanus, diphtheri a, acellular pertussis 06/25/16 Recorded Ambulat ory Pharmac y TDAP 2015 115 complet ed [facility] ZOSTER RECOMBINANT 1 2015 187 complet ed HISTORICA L INFORMATI ON - FROM OTHER REGISTRY, [facility] tetanus toxoid, reduced diphtheria toxoid, and acellular pertu is vaccine, adsorbed 4 2015 [id number] 115 [facility] (SKB) complet ed tetanus toxoid, reduced diphtheri a toxoid, and acellular pertussis vaccine, adsorbed DoD Influenza, seasonal, injectable, preservative free 1 2014 [id number] 140 [employer] (CS) complet ed Influenza , seasonal, injectabl e, preservat efe free DoD anthrax vaccine 6 2013 [id number] 24 [facility] ([facility]) complet ed anthrax vaccine DoD Influenza, seasonal, injectable, preservative free 1 2013 140 Transcribed (TRS) complet ed Influenza , seasonal, injectabl e, preservat efe free DoD typhoid Vi capsular polysaccharid e vaccine 7 2013 [id number] 101 San[employer] Paste[employer] (PMC) complet ed typhoid Vi capsular polysacch aride vaccine DoD tuberculin skin test; purified protein derivative solution, intradermal 1 2012 Unknown, Provider [id number] 96 Sanofi Pasteur ([facility]) complet ed tuberculi n skin test; purified protein derivativ e solution, intraderm al DoD anthrax vaccine 5 2012 [id number] 24 [facility] ([facility]) complet ed anthrax vaccine DoD Influenza, seasonal, injectable, preservative free 1 2012 140 Transcribed (TRS) complet ed Influenza , seasonal, injectabl e, preservat efe free DoD anthrax vaccine 4 2012 [id number] 24 [facility] ([facility]) complet ed anthrax vaccine DoD tuberculin skin test; purified protein derivative solution, intradermal 8 2011 Unknown, Provider [id number] 96 Sanofi Pasteur ([facility]) complet ed tuberculi n skin test; purified protein derivativ e solution, intraderm al DoD Influenza, seasonal, injectable, preservative free 1 2011 [id number] 140 [facility] [employer] ([facility]) complet ed Influenza , seasonal, injectabl e, preservat efe free DoD anthrax vaccine 3 2011 [id number] 24 [facility]) complet ed anthrax vaccine DoD typhoid Vi capsular polysaccharid e vaccine 7 2011 [id number] 101 San[employer] Pasteur ([facility]) complet ed typhoid Vi capsular polysacch aride vaccine DoD vaccinia (smallpox) vaccine 1 2011 [id number] 75 [facility] ([facility]) complet ed vaccinia (smallpox ) vaccine DoD anthrax vaccine 2 2011 [id number] 24 [facility]) complet ed anthrax vaccine DoD anthrax vaccine 1 2011 [id number] 24 [facility] ([facility]) complet ed anthrax vaccine DoD tuberculin skin test; purified protein derivative solution, intradermal 1 2011 Unknown, Provider [id number] 96 Sanofi Pasteur ([facility]) complet ed tuberculi n skin test; purified protein derivativ e solution, intraderm al DoD Influenza, seasonal, injectable, preservative free 0 2010 [id number] 140 Sanofi Pasteur ([facility]) complet ed Influenza , seasonal, injectabl e, preservat efe free DoD influenza virus vaccine, split virus (incl. purified surface antigen)-reti red CODE 1 2009 [id number] 15 [facility] [employer] ([facility]) complet ed influenza virus vaccine, split virus (incl. purified surface antigen)- retired CODE DoD yellow fever vaccine 0 2009 JEFF COKER [id number] 37 San[employer]i Pasteur ([facility]) complet ed yellow fever vaccine DoD typhoid Vi capsular polysaccharid e vaccine 0 2009 JEFF COKER [id number] 101 Sanofi Pasteur ([facility]) complet ed typhoid Vi capsular polysacch aride vaccine DoD meningococcal polysaccharid e (groups A, C, Y and W-135) diphtheria toxoid conjugate vaccine (MCV4P) 0 2009 JEFF COKER [id number] 114 Sanofi Pasteur ([facility]) complet ed meningoco ccal polysacch aride (groups A, C, Y and W-135) diphtheri a toxoid conjugate vaccine (MCV4P) DoD Novel influenza-H1N 1-09, injectable 1 2009 [id number] 127 [id number] Ezekiel. (NOV) complet ed Novel influenza -[id number], injectabl e DoD influenza virus vaccine, live, attenuated, for intranasal use 1 2008 [id number] 111 [employer]. (MED) complet ed influenza virus vaccine, live, attenuate d, for intranasa l use DoD influenza virus vaccine, split virus (incl. purified surface antigen)-reti red CODE 1 2007 [id number] 15 [employer]. (CSL) complet ed influenza virus vaccine, split virus (incl. purified surface antigen)- retired CODE DoD tuberculin skin test; purified protein derivative solution, intradermal 1 2007 Unknown, Provider [id number] [place] (PD) complet ed tuberculi n skin test; purified protein derivativ e solution, intraderm al DoD tuberculin skin test; purified protein derivative solution, intradermal 1 2007 Unknown, Provider [id number] 96 [place] (PD) complet ed tuberculi n skin test; purified protein derivativ e solution, intraderm al DoD varicella virus vaccine 0 2006 21 () Not Given varicella virus vaccine DoD influenza virus vaccine, split virus (incl. purified surface antigen)-reti red CODE 1 2006 [id number] 15 [facility] ([facility]) complet ed influenza virus vaccine, split virus (incl. purified surface antigen)- retired CODE DoD influenza virus vaccine, live, attenuated, for intranasal use 1 2005 [id number] 111 [employer] (MED) complet ed influenza virus vaccine, live, attenuate d, for intranasa l use DoD tetanus toxoid, reduced diphtheria toxoid, and acellular pertu is vaccine, adsorbed 1 2005 [id number] 115 Sanofi Pasteur ([facility]) complet ed tetanus toxoid, reduced diphtheri a toxoid, and acellular pertussis vaccine, adsorbed DoD influenza virus vaccine, split virus (incl. purified surface antigen)-reti red CODE 1 2004 [id number] 15 Sanofi Pasteur ([facility]) complet ed influenza virus vaccine, split virus (incl. purified surface antigen)- retired CODE DoD typhoid vaccine, parenteral, other than acetone-kille d, dried 1 2004 [id number] 41 Sanofi Pasteur ([facility]) complet ed typhoid vaccine, parentera l, other than acetone-k illed, dried DoD tuberculin skin test; purified protein derivative solution, intradermal 1 2003 Unknown, Provider [id number] 96 [facility] ([facility]) complet ed tuberculi n skin test; purified protein derivativ e solution, intraderm al DoD influenza virus vaccine, split virus (incl. purified surface antigen)-reti red CODE 0 2003 15 Transcribed (TRS) complet ed influenza virus vaccine, split virus (incl. purified surface antigen)- retired CODE DoD measles virus vaccine 0 2003 05 () Not Given measles virus vaccine DoD rubella virus vaccine 0 2003 06 () Not Given rubella virus vaccine DoD tuberculin skin test; purified protein derivative solution, intradermal 1 2002 Unknown, Provider [id number] 96 [facility] ([facility]) complet ed tuberculi n skin test; purified protein derivativ e solution, intraderm al DoD influenza virus vaccine, split virus (incl. purified surface antigen)-reti red CODE 1 2002 [id number] 15 Sanofi Pasteur ([facility]) complet ed influenza virus vaccine, split virus (incl. purified surface antigen)- retired CODE [facility] influenza virus vaccine, whole virus 0 2002 [id number] 16 Sanofi Pasteur ([facility]) complet ed influenza virus vaccine, whole virus DoD typhoid vaccine, parenteral, other than acetone-kille d, dried 0 2002 [id number] 41 Sanofi Pasteur ([facility]) complet ed typhoid vaccine, parentera l, other than acetone-k illed, dried DoD hepatitis B vaccine, adult dosage 2 2002 43 Transcribed (TRS) Not Given hepatitis B vaccine, adult dosage DoD tuberculin skin test; purified protein derivative solution, intradermal 2 2001 Unknown, Provider [id number] 96 [facility] ([facility]) complet ed tuberculi n skin test; purified protein derivativ e solution, intraderm al DoD influenza virus vaccine, split virus (incl. purified surface antigen)-reti red CODE 2 2001 15 () complet ed influenza virus vaccine, split virus (incl. purified surface antigen)- retired CODE DoD influenza virus vaccine, whole virus 0 2001 16 () complet ed influenza virus vaccine, whole virus DoD tetanus and diphtheria toxoids, adsorbed, preservative free, for adult use (2 Lf of tetanus toxoid and 2 Lf of diphtheria toxoid) 0 2001 [id number] 09 Sanofi Pasteur ([facility]) complet ed tetanus and diphtheri a toxoids, adsorbed, preservat efe free, for adult use (2 Lf of tetanus toxoid and 2 Lf of diphtheri a toxoid) DoD influenza virus vaccine, split virus (incl. purified surface antigen)-reti red CODE 1 2000 15 () complet ed influenza virus vaccine, split virus (incl. purified surface antigen)- retired CODE DoD influenza virus vaccine, whole virus 0 2000 16 () complet ed influenza virus vaccine, whole virus DoD tuberculin skin test; purified protein derivative solution, intradermal 1 2000 Unknown, Provider [id number] 96 Sanofi Pasteur ([facility]) complet ed tuberculi n skin test; purified protein derivativ e solution, intraderm al DoD typhoid vaccine, parenteral, other than acetone-kille d, dried 0 2000 41 () complet ed typhoid vaccine, parentera l, other than acetone-k illed, dried DoD hepatitis A vaccine, adult dosage 2 1998 [id number] Merck (MSD) complet ed hepatitis A vaccine, adult dosage DoD hepatitis B vaccine, adult dosage 1 1997 [id number] Merck (MSD) complet ed hepatitis B vaccine, adult dosage DoD meningococcal polysaccharid e vaccine (MPSV4) 0 [id number] [place] (CON) complet ed meningoco ccal polysacch aride vaccine (MPSV4) DoD hepatitis A vaccine, adult dosage 1 1997 [id number] [employer]ck (MSD) complet ed hepatitis A vaccine, adult dosage DoD measles and rubella virus vaccine 0 1996 04 () Not Given measles and rubella virus vaccine DoD typhoid vaccine, live, oral 0 1995 UNK 25 Unknown (UNK) comple t ed typhoid vaccine, live, oral DoD yellow fever vaccine 0 1992 37 () complet ed yellow fever vaccine DoD cholera vaccine, unspecified formulation 0 1992 26 () complet ed cholera vaccine, unspecifi ed formulati on DoD trivalent poliovirus vaccine, live, oral 0 1991 02 () complet ed trivalent polioviru s vaccine, live, oral DoD tetanus and diphtheria toxoids, adsorbed, preservative free, for adult use (2 Lf of tetanus toxoid and 2 Lf of diphtheria toxoid) 0 1991 09 () complet ed tetanus and diphtheri a toxoids, adsorbed, preservat efe free, for adult use (2 Lf of tetanus toxoid and 2 Lf of diphtheri a toxoid) DoD varicella virus vaccine 1 1973 21 Transcribed (TRS) Not Given varicella virus vaccine [facility] Vital Signs Combined list of inpatient and outpatient Vital Signs from Department of Defense and Veterans Affairs, ranging from 12 months to all on record, depending upon the facility. Vital Sign Value Date Comments Source Systolic Blood Pressure 135 mm[Hg] 06/16/20 21 18:57:24 One or More [facility] Facilities EST Diastolic Blood Pressure 82 mm[Hg] 021 18:57:24 One or More [facility] Facilities EST Systolic Blood Pressure 123 mm[Hg] 12/20/19 22 16:32:35 One or More [facility] Facilities EST Diastolic Blood Pressure 76 mm[Hg] 022 16:32:35 One or More [facility] Facilities EST Systolic Blood Pressure 148 mm[Hg] 04/14/20 20 18:16:18 One or More [facility] Facilities EST Diastolic Blood Pressure 90 mm[Hg] 020 18:16:18 One or More [facility] Facilities EST SYSTOLIC BLOOD PRESSURE 106 04/26/20 25 14:17:13 [facility] DIASTOLIC BLOOD PRESSURE 67 025 14:17:13 [facility] PULSE OXIMETRY 97 % 04/26/2025 14:17:13 [facility] WEIGHT 187 04/26/2025 14:17:13 [facility] BMI 28 kg/m2 04/26/2025 14:17:13 [facility] PAIN 2 04/26/2025 14:17:13 [facility] HEIGHT 69 04/26/2025 14:17:13 [facility] TEMPERATURE 98.8 04/26/2025 14:17:13 [facility] PULSE 80 04/26/2025 14:17:13 [facility] RESPIRATION 20 04/26/2025 14:17:13 [facility] Encounters Combined list of: 1) Encounters from [facility] of [facility] facilities going backup to the last 18 months, not all VA inpatient encounters are included; 2) Encounters from the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 [address] [place] [address])([facility] ) TELE CONSULT [id number] Notes Entered by: STEPHAN SANTIAGO 01 Jan 2017 1436 ------- ------- ------- ------- -- Network Results Podiatr y 7 BG JERRICA 01/[address] [place] [address])(S [employer] Flight Medicin e Tm) [address] [place] [address])([facility] ) TELE CONSULT [id number] Notes Entered by: Davide RAMOS 02 Jan 2017 1112 ------- ------- ------- ------- -- Network Results PODIATR Y 12/31/19 17 DB YUSUFJERRICA Taylor 01/[address] [place] [address])(S [employer] Flight Medicin e Tm) [address] [place] [address])([facility] Tm) TELE CONSULT [id number] Notes Entered by: Annia WOODS 28 Jan 2017 0931 ------- ------- ------- ------- -- EFFIE Kirby 01/[address] [place] [address])(S cott Flight Medicin e Tm) [address] [place] [address])(Bas e Operation al Medicine Clin) OUTPATIENT [id number] Flight physica l: 41y/o No waiver, No PRK/Las ik KYAWRED 04/04 Released w/o Limitations [address] [place] [address])(B ase Operati onal Medicin e Clin) [address] [place] [address])(Aud iology Procedure s) OUTPATIENT [id number] Flight Annual PARI WAYNE oHmero 04/10 Released w/o Limitations [address] [place] [address])(A udiolog y Procedu res) [address] [place] [address])([facility] Medicine ) TELE CONSULT [id number] Notes Entered by: VALE GARCÍA 01 May 2017 1028 ------- ------- ------- ------- -- Network Results -SLEEP/ PULMONA RY 04/26/17 SDG JULIANNE DEVLIN 05/[address] [place] [address])(S [employer] Medicin e Tm) [address] [place] [address])([facility] Medicine ) TELE CONSULT [id number] Notes Entered by: Karlo BILLY 31 Jul 2017 1524 ------- ------- ------- ------- -- Network Results Pulmona ry Sleep Medicin e 07/24/17 JULIANNE GONZALES 07/[address] [place] [address])(S [employer] Flight Medicin e Tm) [address] [place] [address])([facility] Medicine ) TELE CONSULT [id number] Notes Entered by: CAM EDWARD 06 Jan 2018 1314 ------- ------- ------- ------- -- Sx - shoulde r pain - [place] - [phone] SILVANO Nunez 01/[address] [place] [address])(S [employer] Medicin e Tm) [address] [place] [address])([facility] Medicine ) OUTPATIENT [id number] Right shoulde r pain/de nies hand numbnes s/tingi ng to hand JULIANNE DEVLIN E 01/10 Released w/o Limitations [address] [place] [address])(S [employer] Flight Medicin e Tm) [address] [place] [address])([facility] Medicine ) TELE CONSULT [id number] Notes Entered by: REGAN GUZMAN 24 Jan 2018 0900 ------- ------- ------- ------- -- ER diagnos is of Flu B SILVANO PANDEY 01/[address] [place] [address])(S [employer] Flight Medicin e Tm) [address] [place] [address] Ben [facility])([facility] Medicine ) OUTPATIENT [id number] F/U JULIANNE DEVLIN E 02/03 Released w/o Limitations [address] [place] [address])(S [employer] Flight Medicin e Tm) [address] [place] [address])(Phy sical Therapy) OUTPATIENT [id number] R) shoulde r KAMI GUTIERREZ 02/19 Released w/o Limitations [address] [place] [address] Ben [facility])(P hysical Therapy ) [address] [place] [address])([facility] Medicine ) OUTPATIENT [id number] right testicl e pain x2 weeks / CAL DICKERSON 03/20 Released w/o Limitations [address] [place] [address])(S [employer] Flight Medicin e Tm) [address] [place] [address])([facility] Medicine ) TELE CONSULT [id number] Notes Entered by: NINI DRISCOLL 01 Apr 2018 0928 ------- ------- ------- ------- -- SX - Tala Frances al Eyes Black spots/ [place]/ - GUILLERMINA Ochoa 04/01 Immediate Referral [address] [place] [address] Ben [facility])(S [employer] Flight Medicin e Tm) [address] [place] [address] Ben [facility])([facility] Tm) TELE CONSULT [id number] Notes Entered by: ARELI GUILLORY 04 Apr 2018 1158 ------- ------- ------- ------- -- STAT Lotus jaeger Request - Appt 04 April / Special ist F/U /Aurea / MACY Hamilton 04/[address] [place] [address])(S cott Flight Medicin e Tm) [address] [place] [address])([facility] Medicine Tm) TELE CONSULT [id number] Notes Entered by: ADELITA BRAXTON 08 Apr 2018 1036 ------- ------- ------- ------- -- Physici an request ed T-CON for Network Results - Ophthal mology 018 JULIANNE MONTOYA 04/[address] [place] [address])(S cott [employer] Medicin [facility] Tm) [address] [place] [address])(Bas e Operation al Medicine Clin) OUTPATIENT [id number] 42 y/o M Glasses -N/Taylor gomezN GRADY GARRETT 05/09 Released w/o Limitations [address] [place] [address])(B ase Operati onal Medicin e Clin) [address] [place] [address])(Aud iology Procedure s) OUTPATIENT [id number] Notes Entered by: Davide TANNER 12 May 2018 0956 ------- ------- ------- ------- -- KULWINDER Salguero 05/12 Released w/o Limitations [address] [place] [address])(A udiolog y Procedu res) [address] [place] [address]([facility] - Bldg 675) OUTPATIENT [id number] Notes Entered by: VLADISLAV LIM 01 Oct 2018 1159 ------- ------- ------- ------- -- Respira tor Questio nnaire/ VLADISLAV Mora 10/01 Released w/o Limitations [facility](O cc Med - Bldg 675) [facility]) OUTPATIENT [id number] Notes Entered by: PATRIA GAMA 16 Dec 2018 0920 ------- ------- ------- ------- -- Discuss back pain [id number] REGAN FRANCIS 12/16 Sick at Home/Quarter s [facility]) [facility](War rior Operation al Medicine) OUTPATIENT [id number] Notes Entered by: SILVANO CARVALHO 11 Mar 2019 0714 ------- ------- ------- ------- -- cough, congest ion SHORTY MITCHELL 03/11 Released w/o Limitations [facility](W arrior Operati onal Medicin e) [facility]) TELE CONSULT [id number] Notes Entered by: MYA GRAHAM 22 Apr 2019 0713 ------- ------- ------- ------- -- + Web BIB ESCAMILLA 04/22 Other Not Elsewhere Classified [facility]) [facility](Car diac Procedure ) OUTPATIENT [id number] Notes Entered by: MAU AGUIRRE 23 Apr 2019 1510 ------- ------- ------- ------- -- CHECO Garcia 04/23 Released w/o Limitations [facility](C ardiac Procedu re) [facility](Bas e Operation al Medicine Cell) OUTPATIENT [id number] [phone] DARIELA ROBERTS 05/19 Released w/o Limitations [facility](B ase Operati onal Medicin e Cell) [facility]) OUTPATIENT [id number] [facility] REGAN FRANCIS 05/26 Released w/o Limitations [facility](F H Atlanti s) [facility](Opt ometry ([facility]) ) OUTPATIENT [id number] 1 routine /h/o bl ret detatch REID VALENTINE 08/14 Released w/o Limitations [facility](O [facility]ometr y ([facility](Opt [facility] ([facility]) ) OUTPATIENT [id number] Notes Entered by: BUSTER LEUNG 26 Aug 2019 1132 ------- ------- ------- ------- -- spec adjustm ent BUSTER LEUNG 08/26 Released w/o Limitations [facility](O ptometr y ([facility])) [facility] ([facility]) ) TELE CONSULT [id number] Notes Entered by: LAUREN CONTRERAS 18 Sep 2019 0854 ------- ------- ------- ------- -- Retinal Tear Consult [id number] REID VALENTINE 09/18 [facility](O ptometr y ([facility])) [facility] [place]) OUTPATIENT [id number] annual health screen w/labs REGAN FRANCIS 10/13 Released w/o Limitations [facility](F H [place]) [facility](Aud iology) OUTPATIENT [id number] [facility] CAL Garcia 11/11 Released w/o Limitations [facility](A udiolog y) [facility](War rior Operation al Medicine) TELE CONSULT [id number] Notes Entered by: WILLIE ADKINS 08 Dec 2019 0958 ------- ------- ------- ------- -- + SARAHE REGAN CROSS 12/08 [facility](W arrior Operati onal Medicin e) [facility](War rior Operation al Medicine) TELE CONSULT [id number] Notes Entered by: DIAMOND MERCADO 29 Dec 2019 1326 ------- ------- ------- ------- -- REGAN Obrien 12/29 [facility](W arrior Operati onal Medicin e) [facility](Car diac Procedure ) OUTPATIENT [id number] Notes Entered by: GREGORY MAZARIEGOS SA T 22 Jan 2020 1219 ------- ------- ------- ------- -- CHECO Garcia 01/21 Released w/o Limitations [facility](C ardiac Procedu re) [facility](Fam socorro Medicine Team M) TELE CONSULT [id number] Notes Entered by: ARACELI ALANIS 26 Jan 2020 0941 ------- ------- ------- ------- -- Prophyl actic treatme nt for Steve is REGAN FRANCIS 01/25 [facility](F amily Medicin e Team M) [facility](Bas e Operation al Medicine Cell) TELE CONSULT [id number] Notes Entered by: WILLIE ADKINS 01 Feb 2020 0853 ------- ------- ------- ------- -- MARCIO [facility] [place] JAMILA LAZO 01/31 [facility](B ase Operati onal Medicin e Cell) [facility] Outpatient Encounter [id number] EDUIN HANDLEY 03/04 [facility] Outpatient Encounter [id number] ASHISH SINGH 03/23 [facility] Outpatient Encounter [id number] 03/15 [facility] Outpatient Encounter [id number] 04/19 [facility] [id number] Diagnos is: ICD-10- CM M19.90 Unspeci fied osteoar thritis , unspeci fied site RONDA,DED RA M 04/26 [facility] SYNCH AUDIO-VIDE O EST LOW 20 [id number] Diagnos is: ICD-10- CM M19.90 Unspeci fied osteoar thritis , unspeci fied site RONDA,DED RA M 04/26 [facility] Outpatient Encounter [id number] 04/26 [facility] Outpatient Encounter [id number] 04/27 [facility] PSYTX W PT 45 MINUTES [id number] Diagnos is: ICD-10- CM F41.1 General ized anxiety disorde r KERI- CHECO HER 04/30 [facility] Outpatient Encounter [id number] LEDA BOWMAN 05/04 [facility] Procedures Combined list of: 1) Procedures from Department of Veterans Affairs facilities going back up to thelast 18 months, not all VA non-surgical procedures are included; 2) All procedures from the Department of Defense facilities. Procedure Procedure Type Code Date Perfomer Comments Sourc e COLONOSCOPY, FLEXIBLE; DIAGNOSTIC, INCLUDING COLLECTION OF SPECIMEN(S) BY BRUSHING OR WASHING, WHEN PERFORMED (SEPARATE PROCEDURE) Colonoscopy, flexible, proximal to splenic flexure; diagnostic, with or without collection of specimen(s) by brushing or washing, with or without colon decompression (separate procedure) 25087 07/18 Ambulatory Pharmacy Modalities Cryotherapy Cold Packs Modalities Cryotherapy Cold Packs 51134 04/17 ИРИНА LUZ [facility] Modalities Cryotherapy Cold Packs Modalities Cryotherapy Cold Packs 55821 04/14 LÓPEZ FINN [facility] Modalities Electrical Stimulation Unattended Modalities Electrical Stimulation Unattended 78859 04/14 [facility] Modalities Cryotherapy Cold Packs Modalities Cryotherapy Cold Packs 68672 04/13 [facility] Modalities Electrical Stimulation Unattended Modalities Electrical Stimulation Unattended 93971 04/13 [facility] Modalities Electrical Stimulation Unattended Modalities Electrical Stimulation Unattended 45110 04/12 LÓPEZ FINN [facility] Modalities Cryotherapy Cold Packs Modalities Cryotherapy Cold Packs 06785 04/12 LÓPEZ FINN [facility] Modalities Electrical Stimulation Unattended Modalities Electrical Stimulation Unattended 73256 04/11 LÓPEZ FINN [facility] Modalities Heat Hot Packs Modalities Heat Hot Packs 03920 04/11 HUMALÓPEZ DESHPANDE [facility] Modalities Electrical Stimulation Unattended Modalities Electrical Stimulation Unattended 57207 04/10 ANNETTE CHRISTIE [facility] Modalities Heat Hot Packs Modalities Heat Hot Packs 23129 04/10 ANNETTE CHRISTIE [facility] Prof Estab Patient Internet Med [facility] Prof Estab Patient 29961 05/19 DARIELA ROBERTS [facility] Electrocardiogram Electrocardiogram 87756 04/23 MAU AGUIRRE [facility] Extensive Color Vision Testing Extensive Color Vision Testing 34822 05/12 GRADY GARRETT [facility] Threshold Audiogram (Pure Tone) Threshold Audiogram (Pure Tone) 99169 05/12 GRADY GARRETT [facility] Screening Test Of Visual Acuity, Quantitative, Bilateral Screening Test Of Visual Acuity, Quantitative, Bilateral 47783 05/12 GRADY GARRETT [facility] Threshold Audiogram (Pure Tone) Automated Threshold Audiogram (Pure Tone) Automated 0208T 05/12 Davide TANNER [facility] Physical Therapy: ___ Se ion Segments, 15 Minutes Each Physical Therapy: ___ Session Segments, 15 Minutes Each 65513 02/19 KAMI GUTIERREZ [facility] Non-Physician Phone Call To Patient/Provider Brief (5-10min) Non-Physician Phone Call To Patient/Provider Brief (5-10min) 95592 01/27 SILVANO PANDEY [facility] -Supervised Services Provision Of Educational Supplies -Supervised Services Provision Of Educational Supplies 94073 01/13 JULIANNE DEVLIN Extensive Color Vision Testing Extensive Color Vision Testing 18139 04/14 RED CARD Visual Cantu Test Limited Examination Visual Cantu Test Limited Examination 89959 04/14 RED CARD Screening Test Of Visual Acuity, Quantitative, Bilateral Screening Test Of Visual Acuity, Quantitative, Bilateral 03628 04/14 RED CARD Threshold Audiogram (Pure Tone) Threshold Audiogram (Pure Tone) [address]Supervised Services Provision Of Educational Supplies -Supervised Services Provision Of Educational Supplies 56091 06/29 JULIANNE DEVLIN Upper limb orthosis, not otherwise specified 06/26 THANIA KRUGER [facility] Magnetic Resonance Imaging Coordinator Ed Checkout For Ortho/Prosth Use Estab Patient Magnetic Resonance Imaging Coordinator Ed Checkout For Ortho/Prosth Use Estab Patient [id number] 06/26 THANIA KRUGER [facility] Non-Physician Phone Call To Patient/Provider Brief (5-10min) Non-Physician Phone Call To Patient/Provider Brief (5-10min) 05803 12/14 MYA LIM [facility] Modalities Ultrasound Modalities Ultrasound 84378 10/18 THANIA KRUGER [facility] Modalities Ultrasound Modalities Ultrasound 71138 10/10 NANDO BURKS [facility] Physical Medicine Physical Therapy Re-Evaluation Physical Medicine Physical Therapy Re-Evaluation 59873 10/10 NANDO BURKS [facility] Modalities Ultrasound Modalities Ultrasound 89496 09/02 THANIA KRUGER [facility] Physical Medicine Physical Therapy Evaluation Physical Medicine Physical Therapy Evaluation 44283 08/24 NANDO BURKS [facility] Modalities Ultrasound Modalities Ultrasound 08582 08/24 NANDO BURKS Ultrasound 3.3 MHz, 100% Duty Cycle, 2.4 KJ. 12 Minutes Set Up And Treatment. Pt Tolerated Treatment Well. To the right knee popliteal space using 1.5 w/cm2. [facility] Non-Physician Phone Call To Patient/Provider Brief (5-10min) Non-Physician Phone Call To Patient/Provider Brief (5-10min) 13657 08/17 MYA LIM [facility] Non-Physician Phone Call To Patient/Provider Brief (5-10min) Non-Physician Phone Call To Patient/Provider Brief (5-10min) 08424 04/12 MYA LIM [facility] Psychiatric Evaluation Review of Records and Reports Psychiatric Evaluation Review of Records and Reports 57983 07/01 ISABELLE MCLAIN [facility] Immunization Administration One Vaccine Immunization Administration One Vaccine 65892 06/11 NANDO GREWAL [facility] Typhoid Vaccine Vi Capsular Polysaccharide, For Intramus Use Typhoid Vaccine Vi Capsular Polysaccharide, For Intramus Use 70344 06/11 NANDO GREWAL [facility] Psychologic Testing And Report Administered By Computer Psychologic Testing And Report Administered By Computer 45975 05/25 ISABELLE MCLAIN [facility] Patient Counseling Medical Management Five To Eight Patients Patient Counseling Medical Management Five To Eight Patients 47944 05/18 ISABELLE MCLAIN Psychiatric Evaluation Review of Records and Reports Psychiatric Evaluation Review of Records and Reports 92387 04/14 ISABELLE MCLAIN [facility] Patient Counseling Medical Management Individual Patient Patient Counseling Medical Management Individual Patient 98805 03/23 ISABELLE MCLAIN [facility] Skin Test Anergy Tuberculin Intradermal Skin Test Anergy Tuberculin Intradermal 10167 10/12 LAYNE VO Patient Counseling Medical Management Five To Eight Patients Patient Counseling Medical Management Five To Eight Patients 50790 10/06 ISABELLE MCLAIN [facility] Psychologic Testing And Report Administered By Computer Psychologic Testing And Report Administered By Computer 07090 10/06 ISABELLE MCLAIN Psychiatric Evaluation Review of Records and Reports Psychiatric Evaluation Review of Records and Reports 25551 07/23 ISABELLE MCLAIN Immunization Administration One Vaccine Immunization Administration One Vaccine 24233 07/16 LAYNE VO Patient Counseling Medical Management Five To Eight Patients Patient Counseling Medical Management Five To Eight Patients 52530 04/06 ISABELLE MCLAIN [facility] Threshold Audiogram (Pure Tone) Threshold Audiogram (Pure Tone) 19689 11/10 LAZARO ALFARO [facility] Screening Test Of Visual Acuity, Quantitative, Bilateral Screening Test Of Visual Acuity, Quantitative, Bilateral 46862 11/10 LAZARO ALFARO [facility] Extensive Color Vision Testing Extensive Color Vision Testing 06318 10/21 EFFIE NELSON [facility] Immunization Administration One Vaccine Immunization Administration One Vaccine [address]14 10/[address] [facility] Skin Test Anergy Tuberculin Intradermal Skin Test Anergy Tuberculin Intradermal 20066 10/10 [address] [facility] Immunization Administration One Vaccine Immunization Administration One Vaccine 38065 06/20 LAYNE VO [facility] Immunization Administration One Vaccine Immunization Administration One Vaccine 17695 05/30 LAYNE VO Typhoid Vaccine Vi Capsular Polysaccharide, For Intramus Use Typhoid Vaccine Vi Capsular Polysaccharide, For Intramus Use 49383 05/30 LAYNE VO Patient Counseling Medical Management Individual Patient Patient Counseling Medical Management Individual Patient 20092 04/03 MIRTHA REDD [facility] Immunization Administration One Vaccine Immunization Administration One Vaccine 95717 12/10 MARCELLA HE [facility] Anthrax Vaccine, For Subcutaneous Use 12/10 MARCELLA HE [facility] Psychiatric Evaluation Review of Records and Reports Psychiatric Evaluation Review of Records and Reports 89870 09/25 YORDY PITTS [facility] Psychometric Neuropsych Testing Battery Admin By Physics Tutor Psychometric Neuropsych Testing Battery Admin By Physics Tutor 88047 08/31 MIRTHA REDD [facility] Non-Physician Phone Call To Patient/Provider Brief (5-10min) Non-Physician Phone Call To Patient/Provider Brief (5-10min) 66395 08/27 DENISE GÓMEZ [facility] Extensive Color Vision Testing Extensive Color Vision Testing 93665 08/21 JESSIE NARVAEZ [facility] Extensive Color Vision Testing Extensive Color Vision Testing 44824 08/17 YOGESH RAMIREZ [facility] Screening Test Of Visual Acuity, Quantitative, Bilateral Screening Test Of Visual Acuity, Quantitative, Bilateral 03198 08/17 YOGESH RAMIREZ [facility] Threshold Audiogram (Pure Tone) Threshold Audiogram (Pure Tone) 76814 08/17 YOGESH RAMIREZ [facility] Non-Physician Phone Call To Patient/Provider Brief (5-10min) Non-Physician Phone Call To Patient/Provider Brief (5-10min) 69269 06/15 DENISE GÓMEZ [facility] Health And Behav Intervention, Each 15 Min Grp (2 Or More) Health And Behav Intervention, Each 15 Min Grp (2 Or More) 79393 02/28 YORDY PITTS [facility] Influenza Split Virus Vaccine Age 3+ Years Intramuscular 08/21 GHAZALA FERNANDEZ [facility] Immunization Administration One Vaccine Immunization Administration One Vaccine 59599 08/21 GHAZALA FERNANDEZ [facility] Vaccines Viral Yellow Fever Vaccines Viral Yellow Fever 93083 06/01 JEFF COKER 0.5ml Yellow Fever vaccine given subcutaneously to (L) arm. Patient tolerated well. DoD Immunization Administration One Vaccine Immunization Administration One Vaccine 17198 06/01 JEFF COKER [facility] Typhoid Vaccine Vi Capsular Polysaccharide, For Intramus Use Typhoid Vaccine Vi Capsular Polysaccharide, For Intramus Use 83152 05/29 JEFF COKER 0.5ml Typhoid vaccine given IM to (L) deltoid muscle. [facility] Immunization Administration Each Additional Vaccine 05/29 JEFF COKER [facility] Meningococcal Polysacch Diphtheria Toxoid Conjugate Vaccine 05/29 JEFF COKER 0.5ml Menactra Meningococcal vaccine given IM to (R) deltoid muscle. [facility] Immunization Administration One Vaccine Immunization Administration One Vaccine 09572 05/29 JEFF COKER [facility] ECG Interpretation And Report Only ECG Interpretation And Report Only 79525 05/25 AMBER SAXENA [facility] Urinalysis Urinalysis 45910 10/25 MYA HOLT [facility] Skin Tag Removal Up To 15 Lesions Skin Tag Removal Up To 15 Lesions 38067 04/19 ELENA POOLE [facility] Determination Of Refractive State Determination Of Refractive State 50801 10/12 JERRICA JONES [facility] Ophthalmological New Patient Start Intermediate Level Care Ophthalmological New Patient Start Intermediate Level Care 59900 10/12 JERRICA JONES [facility] Echo (2-D) Mode Complete 07/22 LILLIAN ESCOBEDO [facility] Echocardiogram (M-Mode) 07/22 LILLIAN ESCOBEDO Echo (Doppler) Color Flow Velocity Mapping Echo (Doppler) Color Flow Velocity Mapping 44593 07/22 LILLIAN ESCOBEDO [facility] Physical Therapy Gait Training Physical Therapy Gait Training 95113 01/10 NAVJOT BRAR Corticosteroids Injection Intraarticular Left Knee Corticosteroids Injection Intraarticular Left Knee 14308 12/21 REID ROBERTS [facility] Immunization Administration One Vaccine Immunization Administration One Vaccine 93688 09/10 [place] Modalities Cryotherapy Cold Packs Modalities Cryotherapy Cold Packs 26905 04/19 LÓPEZ FINN Modalities Electrical Stimulation Unattended Modalities Electrical Stimulation Unattended 19720 04/19 LÓPEZ FINN Modalities Electrical Stimulation Unattended Modalities Electrical Stimulation Unattended 33182 04/17 ИРИНА LUZ Ophthalmological New Patient Start Comprehensive Care Ophthalmological New Patient Start Comprehensive Care 06897 [facility] Determination Of Refractive State Determination Of Refractive State 76788 [facility] Spectacles Services Fitting Monofocals (Not For Aphakia) Spectacles Services Fitting Monofocals (Not For Aphakia) 43615 [facility] Evoked Otoacoustic Lakia ions Limited Evoked Otoacoustic Emissions Limited 87716 [place] Threshold Audiogram (Pure Tone) Threshold Audiogram (Pure Tone) 20025 [place] Audiometry Speech Threshold With Discrimination Audiometry Speech Threshold With Discrimination 35912 [place] Tympanometry With Reflex Threshold Measurements Tympanometry With Reflex Threshold Measurements 09714 [place] Non-Physician Phone Call To Patient/Provider Brief (5-10min) Non-Physician Phone Call To Patient/Provider Brief (5-10min) 08113 JORDON GUERRERO [facility] Health And Behav A e mt Each 15 Min Initial A e ment Health And Behav Assessmt Each 15 Min Initial Assessment 83649 RICARDO HENSON [facility] Psychiatric Evaluation Review of Records and Reports Psychiatric Evaluation Review of Records and Reports 75777 DENNIS DARDEN [facility] ECG 12-Lead With Interpretation And Report ECG 12-Lead With Interpretation And Report 12610 ROLLOCKS, DENISE T DoD INJECTION, ONDANSETRON HCL, PER 1 MG 09/20 DoD INJECTION, KETOROLAC TROMETHAMINE, PER 15 MG 02/27 DoD ELECTROCARDIOGRAM, ROUTINE ECG WITH AT LEAST 12 LEADS; WITH INTERPRETATION AND REPORT 01/21 [facility] PSYCHIATRIC EVALUATION OF HOSPITAL RECORDS, OTHER PSYCHIATRIC REPORTS, PSYCHOMETRIC AND/OR PROJECTIVE TESTS, AND OTHER ACCUMULATED DATA FOR MEDICALDIAGNOSTIC PURPOSES 12/17 DoD TELE ASSESS & MGT SRV PROV QUAL NONPHYS HLTH CARE PRO TO EST PAT,PARENT,GUARD NOT ORIG REL ASSESS & MGT SRV PROV W/IN PREV 7 DAYS NOR LEAD ASSESS & MGT SRV/PX W/IN NXT 24 HR/SOON APT;5-10 MIN MED DIS 12/08 DoD HEALTH&BEHAV ASSESSMENT (EG, HEALTH-FOC CLINICAL INTERVIEW, BEHAVIORAL OBSERVATIONS, PSYCHOPHYSICOLOGICA L MONITOR, HEALTH-ORIENT QUESTIONNAIRES), EA 15 MIN [id number] W THE PATIENT; INIT ASSESSMENT 12/08 DoD TYMPANOMETRY AND REFLEX THRESHOLD MEASUREMENTS 11/11 DoD FITTING OF SPECTACLES, EXCEPT FOR APHAKIA; MONOFOCAL 08/26 DoD FITTING OF SPECTACLES, EXCEPT FOR APHAKIA; MONOFOCAL 08/14 DoD ADMINISTRATION OF PATIENT-FOCUSED HEALTH RISK ASSESSMENT INSTRUMENT (EG, HEALTH HAZARD APPRAISAL) WITH SCORING AND DOCUMENTATION, PER STANDARDIZED INSTRUMENT 05/27 DoD ADMINISTRATION OF PATIENT-FOCUSED HEALTH RISK ASSESSMENT INSTRUMENT (EG, HEALTH HAZARD APPRAISAL) WITH SCORING AND DOCUMENTATION, PER STANDARDIZED INSTRUMENT 05/19 DoD ELECTROCARDIOGRAM, ROUTINE ECG WITH AT LEAST 12 LEADS; WITH INTERPRETATION AND REPORT 04/23 DoD INJECTION, KETOROLAC TROMETHAMINE, PER 15 MG 12/12 DoD ADMINISTRATION OF PATIENT-FOCUSED HEALTH RISK ASSESSMENT INSTRUMENT (EG, HEALTH HAZARD APPRAISAL) WITH SCORING AND DOCUMENTATION, PER STANDARDIZED INSTRUMENT 10/01 DoD URINALYSIS; QUALITATIVE OR SEMIQUANTITATIVE, EXCEPT IMMUNOASSAYS 10/24 DoD REMOVAL OF SKIN TAGS, MULTIPLE FIBROCUTANEOUS TAGS, ANY AREA; UP TO AND INCLUDING 15 LESIONS 04/14 [facility] DETERMINATION OF REFRACTIVE STATE 10/12 DoD SCREENING TEST OF VISUAL ACUITY, QUANTITATIVE, BILATERAL 08/02 [facility] ECHOCARDIOGRAPHY, TRANSTHORACIC, REAL-TIME WITH IMAGE DOCUMENTATION (2D), INCLUDES M-MODE RECORDING, WHEN PERFORMED, COMPLETE, WITHOUT SPECTRAL OR COLOR DOPPLER ECHOCARDIOGRAPHY 07/22 DoD INFUSION, NORMAL SALINE SOLUTION , 1000 CC 07/21 [facility] ELECTROCARDIOGRAM, ROUTINE ECG WITH AT LEAST 12 LEADS; WITH INTERPRETATION AND REPORT 07/07 DoD INJECTION, METOCLOPRAMIDE HCL, UP TO 10 MG 01/26 [facility] PSYCHIATRIC EVALUATION OF HOSPITAL RECORDS, OTHER PSYCHIATRIC REPORTS, PSYCHOMETRIC AND/OR PROJECTIVE TESTS, AND OTHER ACCUMULATED DATA FOR MEDICALDIAGNOSTIC PURPOSES 07/01 DoD IMMUNIZATION ADMINISTRATION (INCLUDES PERCUTANEOUS, INTRADERMAL, SUBCUTANEOUS, OR INTRAMUSCULAR INJECTIONS); 1 VACCINE (SINGLE OR COMBINATION VACCINE/TOXOID) 06/11 DoD PSYCHOLOGICAL TSTING (INCL PSYCHODIAG ASSESSMNT, EMOTITY, INTELLECTUAL ABILITIES, PERSONALITY &PSYCHOPATHOLOGY, EG, MMPI), ADMINISTERED COMPUTER, W QUALIFIED HEALTH CLASSIFIED ADVERTISING MANAGER INTERPRET &RPT 05/25 DoD EDUCATION &TRAINING, PATIENT SELF-MGT QUALIFIED, NONPHYSICIAN HEALTH CLASSIFIED ADVERTISING MANAGER USING STANDARDIZED CURRICULUM, [id number] W THE PATIENT (COULD INCL CAREGIVER/FAMILY) EA 30 MIN; 5-8 PATIENTS 05/18 DoD PSYCHIATRIC EVALUATION OF HOSPITAL RECORDS, OTHER PSYCHIATRIC REPORTS, PSYCHOMETRIC AND/OR PROJECTIVE TESTS, AND OTHER ACCUMULATED DATA FOR MEDICALDIAGNOSTIC PURPOSES 04/14 DoD EDUCATION &TRAINING, PATIENT SELF-MGT QUALIFIED, NONPHYSICIAN HEALTH CLASSIFIED ADVERTISING MANAGER USING STDIZED CURRICULUM, [id number] W THE PATIENT (COULD INCL CAREGIVER/FAMILY) EA 30 MIN; INDIVIDUAL PATIENT 03/23 [facility] SKIN TEST; TUBERCULOSIS, INTRADERMAL 10/12 DoD EDUCATION &TRAINING, PATIENT SELF-MGT QUALIFIED, NONPHYSICIAN HEALTH CLASSIFIED ADVERTISING MANAGER USING STANDARDIZED CURRICULUM, [id number] W THE PATIENT (COULD INCL CAREGIVER/FAMILY) EA 30 MIN; 5-8 PATIENTS 10/06 DoD PSYCHOLOGICAL TSTING (INCL PSYCHODIAG ASSESSMNT, EMOTITY, INTELLECTUAL ABILITIES, PERSONALITY &PSYCHOPATHOLOGY, EG, MMPI), ADMINISTERED COMPUTER, W QUALIFIED HEALTH CLASSIFIED ADVERTISING MANAGER INTERPRET &RPT 10/06 [facility] PSYCHIATRIC EVALUATION OF HOSPITAL RECORDS, OTHER PSYCHIATRIC REPORTS, PSYCHOMETRIC AND/OR PROJECTIVE TESTS, AND OTHER ACCUMULATED DATA FOR MEDICALDIAGNOSTIC PURPOSES 07/23 DoD IMMUNIZATION ADMINISTRATION (INCLUDES PERCUTANEOUS, INTRADERMAL, SUBCUTANEOUS, OR INTRAMUSCULAR INJECTIONS); 1 VACCINE (SINGLE OR COMBINATION VACCINE/TOXOID) 07/16 DoD EDUCATION &TRAINING, PATIENT SELF-MGT QUALIFIED, NONPHYSICIAN HEALTH CLASSIFIED ADVERTISING MANAGER USING STANDARDIZED CURRICULUM, [id number] W THE PATIENT (COULD INCL CAREGIVER/FAMILY) EA 30 MIN; 5-8 PATIENTS 04/06 DoD PURE TONE AUDIOMETRY (THRESHOLD); AIR ONLY 11/07 DoD COLOR VISION EXAMINATION, EXTENDED, EG, ANOMALOSCOPE OR EQUIVALENT 10/21 DoD SKIN TEST; TUBERCULOSIS, INTRADERMAL 10/10 DoD ANTHRAX VACCINE, FOR SUBCUTANEOUS OR INTRAMUSCULAR USE 06/20 DoD TYPHOID VACCINE, CAPSULAR POLYSACCHARIDE (VICPS), FOR INTRAMUSCULAR USE 05/30 DoD EDUCATION &TRAINING, PATIENT SELF-MGT QUALIFIED, NONPHYSICIAN HEALTH CLASSIFIED ADVERTISING MANAGER USING STDIZED CURRICULUM, [id number] W THE PATIENT (COULD INCL CAREGIVER/FAMILY) EA 30 MIN; INDIVIDUAL PATIENT 04/03 DoD IMMUNIZATION ADMINISTRATION (INCLUDES PERCUTANEOUS, INTRADERMAL, SUBCUTANEOUS, OR INTRAMUSCULAR INJECTIONS); 1 VACCINE (SINGLE OR COMBINATION VACCINE/TOXOID) 12/10 DoD PSYCHIATRIC EVALUATION OF HOSPITAL RECORDS, OTHER PSYCHIATRIC REPORTS, PSYCHOMETRIC AND/OR PROJECTIVE TESTS, AND OTHER ACCUMULATED DATA FOR MEDICALDIAGNOSTIC PURPOSES 09/25 DoD NEUROPSYC TSTNG(EG,[facility] NEUROPSYC [place],AL[facility]ED MEMRY SCALES&[place] [facility] TST),W QUALIFIED HEALTH CARE PROFSIONAL INTERP&RPT,ADMINIST ERED NURSING STUDENT,/HR,TECH ARY HENRY,FCE-2-FCE 08/28 DoD TELE ASSESS & MGT SRV PROV QUAL NONPHYS HLTH CARE PRO TO EST PAT,PARENT,GUARD NOT ORIG REL ASSESS & MGT SRV PROV W/IN PREV 7 DAYS NOR LEAD ASSESS & MGT SRV/PX W/IN NXT 24 HR/SOON APT;5-10 MIN MED DIS 08/23 DoD COLOR VISION EXAMINATION, EXTENDED, EG, ANOMALOSCOPE OR EQUIVALENT 08/21 DoD COLOR VISION EXAMINATION, EXTENDED, EG, ANOMALOSCOPE OR EQUIVALENT 08/17 DoD TELE ASSESS & MGT SRV PROV QUAL NONPHYS HLTH CARE PRO TO EST PAT,PARENT,GUARD NOT ORIG REL ASSESS & MGT SRV PROV W/IN PREV 7 DAYS NOR LEAD ASSESS & MGT SRV/PX W/IN NXT 24 HR/SOON APT;5-10 MIN MED DIS 06/12 DoD HEALTH AND BEHAVIOR INTERVENTION, EACH 15 MINUTES, [id number]; GROUP (2 OR MORE PATIENTS) 02/28 [facility] INFLUENZA VIRUS VACCINE, TRIVALENT (IIV3), SPLIT VIRUS, 0.5 ML DOSAGE, FOR INTRAMUSCULAR USE 08/21 [facility] YELLOW FEVER VACCINE, LIVE, FOR SUBCUTANEOUS USE 06/01 [facility] TYPHOID VACCINE, CAPSULAR POLYSACCHARIDE (VICPS), FOR INTRAMUSCULAR USE 05/29 [facility] ELECTROCARDIOGRAM, ROUTINE ECG WITH AT LEAST 12 LEADS; INTERPRETATION AND REPORT ONLY 05/25 DoD PURE TONE AUDIOMETRY (THRESHOLD); AIR ONLY 05/12 DoD PURE TONE AUDIOMETRY (THRESHOLD), AUTOMATED; AIR ONLY 05/12 [facility] THERAPEUTIC PROCEDURE, 1 OR MORE AREAS, EACH 15 MINUTES; THERAPEUTIC EXERCISES TO DEVELOP STRENGTH AND ENDURANCE, RANGE OF MOTION AND FLEXIBILITY 02/19 DoD TELE ASSESS & MGT SRV PROV QUAL NONPHYS HLTH CARE PRO TO EST PAT,PARENT,GUARD NOT ORIG REL ASSESS & MGT SRV PROV W/IN PREV 7 DAYS NOR LEAD ASSESS & MGT SRV/PX W/IN NXT 24 HR/SOON APT;5-10 MIN MED DIS 01/24 DoD EDUCATIONAL SUPPLIES, SUCH BOOKS, TAPES, AND PAMPHLETS, FOR THE PATIENT'S EDUCATION AT COST TO PHYSICIAN OR OTHER QUALIFIED HEALTH CLASSIFIED ADVERTISING MANAGER 01/13 [facility] COLOR VISION EXAMINATION, EXTENDED, EG, ANOMALOSCOPE OR EQUIVALENT 04/10 DoD UPPER LIMB ORTHOSIS, NOT OTHERWISE SPECIFIED 06/26 DoD EDUCATIONAL SUPPLIES, SUCH BOOKS, TAPES, AND PAMPHLETS, FOR THE PATIENT'S EDUCATION AT COST TO PHYSICIAN OR OTHER QUALIFIED HEALTH CLASSIFIED ADVERTISING MANAGER 06/26 DoD TELE ASSESS & MGT SRV PROV QUAL NONPHYS HLTH CARE PRO TO EST PAT,PARENT,GUARD NOT ORIG REL ASSESS & MGT SRV PROV W/IN PREV 7 DAYS NOR LEAD ASSESS & MGT SRV/PX W/IN NXT 24 HR/SOON APT;5-10 MIN MED DIS 12/09 DoD APPLICATION OF A MODALITY TO 1 OR MORE AREAS; ULTRASOUND, EACH 15 MINUTES 10/18 DoD APPLICATION OF A MODALITY TO 1 OR MORE AREAS; ULTRASOUND, EACH 15 MINUTES 10/10 DoD APPLICATION OF A MODALITY TO 1 OR MORE AREAS; ULTRASOUND, EACH 15 MINUTES 09/02 DoD APPLICATION OF A MODALITY TO 1 OR MORE AREAS; ULTRASOUND, EACH 15 MINUTES 08/24 DoD TELE ASSESS & MGT SRV PROV QUAL NONPHYS HLTH CARE PRO TO EST PAT,PARENT,GUARD NOT ORIG REL ASSESS & MGT SRV PROV W/IN PREV 7 DAYS NOR LEAD ASSESS & MGT SRV/PX W/IN NXT 24 HR/SOON APT;5-10 MIN MED DIS 08/12 DoD TELE ASSESS & MGT SRV PROV QUAL NONPHYS HLTH CARE PRO TO EST PAT,PARENT,GUARD NOT ORIG REL ASSESS & MGT SRV PROV W/IN PREV 7 DAYS NOR LEAD ASSESS & MGT SRV/PX W/IN NXT 24 HR/SOON APT;5-10 MIN MED DIS 04/11 DoD UNLISTED SPECIAL SERVICE, PROCEDURE OR REPORT 01/14 DoD THERAPEUTIC PROCEDURE, 1 OR MORE AREAS, EACH 15 MINUTES; GAIT TRAINING (INCLUDES STAIR CLIMBING) 01/10 DoD ARTHROCENTESIS, ASPIRATION AND/OR INJECTION, MAJOR JOINT OR BURSA (EG, SHOULDER, HIP, KNEE, SUBACROMIAL BURSA); WITHOUT ULTRASOUND GUIDANCE 12/21 DoD INFUSION, NORMAL SALINE SOLUTION, 250 CC 01/01 DoD APPLICATION OF A MODALITY TO 1 OR MORE AREAS; ELECTRICAL STIMULATION (UNATTENDED) 04/19 DoD APPLICATION OF A MODALITY TO 1 OR MORE AREAS; HOT OR COLD PACKS 04/17 DoD APPLICATION OF A MODALITY TO 1 OR MORE AREAS; HOT OR COLD PACKS 04/14 DoD APPLICATION OF A MODALITY TO 1 OR MORE AREAS; ELECTRICAL STIMULATION (UNATTENDED) 04/13 DoD APPLICATION OF A MODALITY TO 1 OR MORE AREAS; HOT OR COLD PACKS 04/12 DoD APPLICATION OF A MODALITY TO 1 OR MORE AREAS; HOT OR COLD PACKS 04/11 DoD APPLICATION OF A MODALITY TO 1 OR MORE AREAS; ELECTRICAL STIMULATION (UNATTENDED) 04/10 DoD THERAPEUTIC PROCEDURE, 1 OR MORE AREAS, EACH 15 MINUTES; THERAPEUTIC EXERCISES TO DEVELOP STRENGTH AND ENDURANCE, RANGE OF MOTION AND FLEXIBILITY 04/07 DoD INFUSION, NORMAL SALINE SOLUTION, 250 CC 04/04 DoD INJECTION, METOCLOPRAMIDE HCL, UP TO 10 MG 12/17 DoD Social History Combined list of available smoking, tobacco, and other social history from [facility] of Defense and Veterans Affairs facilities. Social History Type Response Date Comment [facility] e Tobacco smoking status [facility] VA-TOBACCO NEVER USED CIGARETTES 04/26/2025 [facility] History of tobacco use MT-TOBACCO NEVER USED OTHER TYPE 04/26/2025 [facility] History of tobacco use MT-TOBACCO NEVER USED 06/19/2022 [facility] History of tobacco use MT-TOBACCO NEVER USED 04/17/2021 [facility] Sex Representation Male (finding) 05/31/2020 Un known Organization Sexual Orientation [facility] Gender identity [facility] This section is an empty social history section. DoD Assessment and Plan Combined list of future care activities from [facility] of Defense and Veterans Affairs facilities (e.g., assessment and plan notes, appointments, orders, and referrals). Additional future care activities may be listed in the Plan of Care section. Result Assessment and Plan Date Source Assessment and Plan No data available for this section 07/07/2025 [facility] Plan of Care List of future care activities from Department of Veterans Affairs facilities. Additional future care activities may be listed in the Assessment and Plan section. Date/Time Care Activity Care Activity Detail Facili ty 05/04/2025 Laboratory - Chemistry Order HGA1C BLOOD SP [facility] Functional Status Combined list of recent functional and cognitive assessments recorded at [facility] ([facility] Functional [place] Measurement (FIM) Scale: 1 = Total Assistance (Subject = 0% +), 2 = Maximal Assistance (Subject = 25% +), 3 = Moderate Assistance (Subject = 50% +), 4 = Minimal Assistance (Subject = 75% +), 5 = Supervision, 6 = Modified [place] (Device), 7 = Complete [place] (Timely, Safely). Assessment Date/Time Source Assessment Type Assessment Skill Assessment Score Assessment Details No data available for this section
--- OUTSIDE RECORDS SUMMARY | 2025-07-07 08:59 | XMS_ITS | Clinical Summary ---
Author Organization [facility] Address [address] [place] [address] Care Team Providers Care Coal Feeder Operator Name Role Phone Hayden Carrillo MD Primary Care Provider Allergies Active Allergy Reactions Criticality Noted Date [...] wide field photographs, okay to follow in [facility] or locally. Call immediately if any [...] Optos photos and FA obtained earlier today. Surgical History Surgery Date Site/Laterality Comments ADENOIDECTOMY [...] CDT Gender Identity Male 12/04/2022 8:26 PM INFECTION CONTROL RN Sexual Orientation Straight 12/04/2022 8: 26 PM INFECTION CONTROL RN Obstetrics History Last Filed Vital Signs Vital [...] A M CDT Height 175.3 cm (5' 9) 01/21/2025 5:23 PM CDT Body Mass Index 29.01 01/21/2025 5:23 PM CDT Plan of Treatment Health Maintenance Due Date Last Done Comments Colon Cancer Screening-Colonoscopy 1973 Depression Screening 1973 Hepatitis C Screening 1973 Prostate Cancer Screening-PSA 1973 Hepatitis B Screening 1991 Regular Well Visit/Exam 18-64 1991 Zoster Vaccine (1 of 2) 2023 Covid-19 Vaccine (4 - season) 2024 10/15/2021, 02/12/2021, 01/22/2021 Influenza Vaccine (#1) 2025 , 08/29/2019, 07/14/2017, Additional history exists DTaP/Tdap/Td Vaccine (2 - Td or Tdap) 06/25/2026 06/25/2016 Pneumococcal vaccine <65 Aged Out No longer eligible based on patient's age to complete this topic Insurance [facility] Care Teams Coal Feeder Operator Relationship Specialty Start Date End Date Hayden Carrillo MD [facility] [place] [address] PCP - General Family Medicine 12/24/23
--- OUTSIDE RECORDS SUMMARY | 2025-07-07 09:01 | XMS_ITS | Encounter Summary ---
Author Organization [facility] Address [address] [place] [address] Care Team Providers Care Gas Meter Prover Name Role Phone Unavailable Primary Care Provider Unavailabl e Encounter Details Date Type Department Care Team (Late st Contact Info) Description 08/12/2024 Lab Requisition [facility] - DermPath Lab [address] [facility] [place] [address] Letty Almanza MD [address] [place] [phone] Dermatitis, unspecified Social History Tobacco Use Types Packs/Day Years Used Date Smoking Tobacco: Never Assessed Sex and Gender Information Value Date Recorded Sex Assigned at Not on file Legal Sex Male 12:19 PM PHYTOPATHOLOGIST Gender Identity Not on file Sexual Orientation Not on file documented as of this encounter Plan of Treatment Not on file documented as of this encounter Procedures Procedure Name Priority Date/Time Associated Diagnosis Comments DERMATOPATHOLOGY Routine 08/12/2024 12:0 0 AM CDT Dermatitis, unspecified documented in this encounter Results * DERMATOPATHOLOGY (08/12/2024 12:00 AM CDT) Case Report Dermatopathology Report Case: [id number] Authorizing Provider: Letty Almanza MD Collected: 08/12/2024 12:00 AM Ordering Location: [facility] - Received: 08/13/2024 12:50 PM DermPath Lab Pathologist: Padma Tee MD Specimen: Skin, right forearm 3:31 PM CDT DERMATOPATHOLOGY LABORATORY Final Diagnosis Specimen A. 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 The specimen consists of a shave biopsy measuring 7x7x2 mm. Jar 0. 3:31 PM [facility] DERMATOPATHOLOGY LABORATORY Microscopic Description Specimen A. [...] excluded. Clinical correlation is recommended. 3:31 PM [facility] DERMATOPATHOLOGY LABORATORY Disclaimer An external and internal positive and negative controls are appropriate for the histochemical, immunohistochemical and immunofluorescence stain(s) in this case (if any), except where stated explicitly. The performance characteristics of the stain(s) cited in this report were developed and its performance characteristic determined by the Dermatopathology Laboratory at [facility], directed by Dr. Calvin Ayers. These tests need not be, and therefore are not, approved by the [place] Food and Drug Administration. The tests are used for clinical purposes. Billing Codes Specimen Charges Stain Charges 41532 1 86186 86902 1 1 3:31 PM T DERMATOPATHOLOGY LABORATORY Embedded Images 3:31 PM [facility] DERMATOPATHOLOGY LABORATORY Pathology/Cytolog y TISSUE SPECIMEN FROM SKIN / Unknown 08/12/2024 08/13/2024 12:50 PM CDT us Letty Almanza MD LAB - PATHOLOGY/CYTOLOGY ORDERAB LES Final Result DERMATOPATHOLOGY LABORATORY [facility] - Department of Dermatology [facility] [address] [place] [address], [address] [phone] documented in this encounter Visit Diagnoses Diagnosis Dermatitis, unspecified documented in this encounter
--- OUTSIDE RECORDS SUMMARY | 2025-07-07 09:01 | XMS_ITS | Clinical Summary ---
Author Organization [facility] Address [address] [place] [address] Care Team Providers Care Tailing Hand Name Role Phone Unavailable Primary Care Provider Unavailabl e Source Comments [facility],non-owned Affiliates and Associated Physician Practices is amultiple site organization consisting of ambulatory clinics and hospital sitesin [place], [place], [place] and [place]. This disclosure is being madepursuant to the Care Everywhere program and may not contain all information available regarding this patient. Last updated 18.[facility] Allergies No known active allergies Social History Tobacco Use Types Packs/Day Years Used Date Smoking Tobacco: Never Assessed Sex and Gender Information Value Date Recorded Sex Assigned at Not on file Legal Sex Male 12:19 PM LICENSE DISTRIBUTOR Gender Identity Not on file Sexual Orientation Not on file Last Filed Vital Signs Vital Sign Reading Time Taken Comments Blood Pressure - - Pulse 72 10/31/2020 1:50 PM LICENSE DISTRIBUTOR Temperature - - Respiratory Rate - - Oxygen Saturation - - Inhaled Oxygen Concentration - - Weight 84.8 kg (187 lb) 10/31/2020 1:50 PM LICENSE DISTRIBUTOR Height 179.1 cm (5' 10.5) 10/31/2020 1:50 PM CS T Body Mass Index 26.45 10/31/2020 1:50 PM LICENSE DISTRIBUTOR Plan of Treatment Health Maintenance Due Date [...] season) 2024 DEPRESSION SCREENING 11/04/2024 INFLUENZA VACCINE (#1) 2025 HIB VACCINE Aged Out No longer [...]
--- OUTSIDE RECORDS SUMMARY | 2025-07-07 09:01 | XMS_ITS | Clinical Summary ---
Author Organization [facility] Address [address] [place] [address] Care Team Providers Care Money Room Supervisor Name Role Phone Unavailable Primary Care Provider Unavailabl e Encounters Date Type Department Care Team Description 06/22/2025 External Device Data ST[facility] ABSTRACTION Provider, Abstract from Last 3 Months Social History Tobacco Use Types Packs/Day Years Used Date Smoking Tobacco: Never Assessed Sex and Gender Information Value Date Recorded Sex Assigned at Male 02/19/2025 9:38 PM CDT Legal Sex Male 12:14 PM CDT Gender Identity Male 02/19/2025 9:38 PM CDT Sexual Orientation Straight 02/19/2025 9: 38 PM CDT Plan of Treatment Health Maintenance Due Date Last Done Comments Pre-Diabetes and Diabetes Screening 1973 HEPATITIS B VACCINES (1 of 3 - 19+ 3-dose series) 07/06 FIT-DNA Q 3 years 2018 FIT/FOBT Q 1 year 2018 Flex Sig/CT Colonography Q 5 years 2018 ZOSTER VACCINE (1 of 2) 2023 INFLUENZA VACCINE (#1) 2025 08/29/2019 DTAP/TDAP/TD VACCINES (2 - Td or Tdap) 06/25/2026 COLORECTAL SCREENING 07/18/2031 07/18/2021 Colorectal Cancer Screening 07/18/2031
[2025-07-07 09:11] LABS: Add Urine Microscopic? NO; Appearance Urine Clear (Clear); Glucose Urine UA Negative (Negative); Leukocyte Esterase Ur Negative LEU/UL (Negative); Nitrate Urine Negative (Negative); Specific Grav Ur 1.012 (1.001-1.035)
[2025-07-07 09:29] LABS: Albumin Level 4.6 g/dL (3.5-5.1); Anion Gap 7 mmol/L (4-12); Blood Urea Nitrogen 8 mg/dL (9-20); Calcium 9.3 mg/dL (8.4-10.2); Carbon Dioxide 30 mmol/L (22-30); Chloride 101 mmol/L (98-107); Estimated Glomerular Filt Rate > 60; Glucose 104 mg/dL (65-110); Potassium 3.7 mmol/L (3.4-5.0); Sodium 138 mmol/L (137-145)
[2025-07-07 09:31] LABS: Total Protein Urine Random 6 mg/dL; Ur Ttl Prot Creatinine Ratio 0.04 mg/mg (0-0.20)
== END 2025-07-07 08:32 | disposition home or self-care (01) ==
LOC: ANHLAB 08:37
PROVIDERS: PCP Emergency Medicine; Visit Provider Internal Medicine Nephrology
DX: N20.0 Calculus of kidney (principal)
CPT/HCPCS: 36415; 80069; 81003; 82570; 84156

== ENCOUNTER 2025-07-22 01:12 | Day surgery (SDC) | payer OTHER, SELFPAY ==
--- OUTSIDE RECORDS SUMMARY | 2025-06-14 09:03 | XMS_ITS | Continuity of Care Document ---
Author Organization [facility] Address [email or web address] [facility] [place] [address] Phone Care Team Providers Care Dope Dry House Operator Name Role Phone Hayden Carrillo MD Unavailable Unavailable Allergies, Adverse Reactions, Alerts Substance Reaction Status Criticality morphine Active No Information Medications Medication Instructions Dosage Effective Dates (start - stop) Status Comments Lexapro 10 mg tablet take 1 tablet by or al route every day 10 MG - Active Procedures Procedure Date OFFICE/OUTPATIENT VISIT, EST OFFICE/OUTPATIENT [...] Diagnoses Date Provider Providers Copied on Encounter [facility] [place], [address] [place], [id number], [place] tel:[phone] [facility] [place] No Information 5 Gerardo Blake. [address] [place], [place], [address] , [place]. tel:[phone] OFFICE/OUTPA TIENT VISIT, EST [facility], [place], [address], [place], [place], [address], [place] tel:[phone] [facility] [place] HLP (chief complaint) bilirubin (chief complaint) anxiety1 (chief complaint) Mixed hyperlipidemiaDisor patrice of bilirubin metabolism, unspecifiedGenerali zed Anxiety DisorderOther insomnia 5 Gerardo Blake. [address], [address], [place], [place], [address] , [place]. [phone] OFFICE/OUTPA TIENT VISIT, EST [facility], [place], [address], [place], [place], [address], [place] tel:[phone] [facility] [place] hypothyroi dism1 (chief complaint) HLP (chief complaint) rash1 (chief complaint) osteoepeni a1 (chief complaint) anxiety1 (chief complaint) HypothyroidismMixed hyperlipidemiaOsteo peniaRashGeneralize d Anxiety Disorder 5 Gerardo Blake. [address], [address], [place], [place], [address] , [place]. [phone] OFFICE/OUTPA TIENT VISIT, EST [facility], [place], [address], [place], [place], [address], [place] tel:[phone] [facility] [place] HLP (chief complaint) thyroid1 (chief complaint) hematuria1 (chief complaint) renal cyst1 (chief complaint) Mixed hyperlipidemiaHypot hyroidismAsymptomat ic microscopic hematuriaCyst of kidney, acquiredFatty liver 5 Gerardo Blake. [address], [place], [place], [address] , [place]. tel:[phone] PREV VISIT, EST, AGE 40-64 [facility], [place], [address], [place], [place], [address], [place] tel:[phone] [facility] [place] physical (chief complaint) Encounter for general adult medical exam w abnormal findingsObstructive sleep apnea (adult) (pediatric)Essentia l (primary) hypertensionRenal stoneMixed hyperlipidemiaRash 5 Gerardo Blake. [address], [address], [place], [place], [address] , [place]. tel:[phone] OFFICE/OUTPA TIENT VISIT, [facility], [address], [place], [place], [address], [place] tel:[phone] [facility] [place] sleep apnea1 (chief complaint) renal stone1 (chief complaint) skin (chief complaint) Renal stoneObstructive Sleep Apnea HypopneaStage III chronic renal diseaseRashHypergly cemia 4 Gerardo Blake. [address], [address], [place], [place], [address] , [place]. tel:[phone] OFFICE/OUTPA TIENT VISIT, [facility], [address], [place], [place], [address], [place] tel:[phone] [facility] [place] cough1 (chief complaint) skin1 (chief complaint) Cellulitis of right upper limbAcute cough 4 Gerardo Blake. [address], [address], [place], [place], [address] , [place]. tel:[phone] OFFICE/OUTPA TIENT VISIT, [facility], [address], [place], [place], [address], [place] tel:[phone] [facility] [place] sleep apnea1 (chief complaint) palpitatio n1 (chief complaint) skin (chief complaint) liver cyst1 (chief complaint) Liver diseaseObstructive Sleep Apnea HypopneaPalpitation sStaphylococcus aureus infection 4 Gerardo Blake. [address], [address], [place], [place], [address] , [place]. tel:[phone] OFFICE/OUTPA TIENT VISIT, [facility], [address], [place], [place], [address], [place] tel:[phone] [facility] [place] sleep apnea1 (chief complaint) palpitatio n1 (chief complaint) plantar1 (chief complaint) liver cyst1 (chief complaint) Liver diseaseObstructive sleep apnea (adult) (pediatric)Other chest painPlantar fascial fibromatosis 3 Gerardo Blake. [address], [place], [place], [address] , [place]. tel:[phone] OFFICE/OUTPA TIENT VISIT, EST [facility], [place], [address], [place], [place], [address], [place] tel:[phone] [facility] [place] HLP (chief complaint) bili1 (chief complaint) sleep apnea1 (chief complaint) chest pain1 (chief complaint) foot pain1 (chief complaint) left side abd pain1 (chief complaint) Plantar fascial fibromatosisOther chest painLiver diseaseMixed hyperlipidemiaDisor patrice of bilirubin metabolism, unspecifiedObstruct efe sleep apnea (adult) (pediatric)Upper abdominal pain 3 Gerardo Blake. [address], [place], [place], [address] , [place]. tel:[phone] PREV VISIT, EST, AGE 40-64 [facility], [place], [address], [place], [place], [address], [place] tel:[phone] [facility] [place] physical (chief complaint) Encounter for general adult medical exam w abnormal findingsPrimary central sleep apneaLiver diseaseRadiculopath y, cervical region 3 Gerardo Balke. [address], [place], [place], [address] , [place]. [phone] OFFICE/OUTPA TIENT VISIT, EST [facility], [place], [address], [place], [place], [address], [place] tel:[phone] [facility] [place] sick1 (chief complaint) sleep apnea1 (chief complaint) radiculopa thy1 (chief complaint) liver lesion1 (chief complaint) Viral infectionPrimary central sleep apneaLiver diseaseRadiculopath y, cervical region 2 Gerardo Blake. [address], [place], [place], [address] , [place]. tel:[phone] PREV VISIT, NEW, AGE 40-64 [facility], [place], [address], [place], [place], [address], [place] tel:[phone] [facility] physical (chief complaint) Encounter for general adult medical examination without abnormal findings [address], [place], [place], [address] , [place]. tel:[phone] Family History Family Member Type Diagnosis Age At Onset Mother Problem of 66 due to vaginal CA Father Problem Alive and well Maternal grandfather Problem colon CA 70s Sister Problem Alive and well Payers Payer name Insurance type Covered green party ID Adeel desai(s) [facility] [id number] Social History Type Description Quantity Date Captured Comments Sex Male Smoking Status No Information Chief Complaint And Reason For Visit No Information Plan Of Treatment Date Type Action Status Referral Ordered: Letty Almanza -Allopathic & Osteopathic Physicians : Dermatology (related to Rash) ordered Referral Referred To: Letty Almanza [address] [facility] [address] [place], [place], [phone] Ordered: Referrals: Allopathic & Osteopathic Physicians : Dermatology. Letty Almanza. Evaluate and treat ordered Referral Ordered: COLONOSCOPY AND BIOPSY ordered Referral Ordered: MRI ABDOMEN W/O & W/DYE ordered Referral Ordered: Nephrology (related to Stage III chronic renal disease) ordered Referral Ordered: Referrals: Nephrology. Evaluate and treat ordered Referral Ordered: Dermatology (related to Staphylococcus aureus infection) ordered Referral Ordered: Referrals: Dermatology. Evaluate and treat ordered Referral Ordered: Lc Earl -Podiatric Medicine & Surgery Service Providers : Video Effects Editor (related to Plantar fascial fibromatosis) ordered Referral Referred To: Lc Earl [address] [facility] [place], [place], [phone] Ordered: Referrals: Podiatric Medicine & Surgery Service Providers : Video Effects Editor. Lc Earl. Evaluate and treat ordered Referral Ordered: CT ABDOMEN&PELVIS W/CONTRAST ordered Referral Ordered: SLEEP STUDY, ATTENDED ordered Referral Referred To: Santiago Desouza [address] [place] [address], [phone] Ordered: Referrals: Santiago Desouza. Evaluate and treat ordered Referral Ordered: MOTOR NERVE CONDUCTION TEST ordered History Of Present Illness Encounter Date Complaint History Of Prese nt Illness HLP Pt has HLP Pt ordonez s been taking crestor and his lipid is ok. Pt denies any myalgia bilirubin Pt has mildly hi gh bili Pt denies any abd pain or jaundice. Pt does have fatty liver. anxiety1 Pt has chronic a nxiety and depression Pt takes lexapro and doing ok. Pt just had some insomnia with lexapro Pt takes lexapro at night Pt denies any suicidal or homicidal thought Pt denies any crying spells . hypothyroidism1 Pt has history o f mildly low thyroid Pt had repeat TFT done which is ok Pt denies any dysphagia or neck pain HLP pt has HLP pt is on crestor. Pt tolerating it ok Pt denies any myalgia rash1 Pt has chronic b listers type of skin rash Pt is seeing dermatology and had biopsy done which showed hyperkeratosis, acanthosis and hypergranulosis ulcer with superficial dermal necrosis. Pt needs to follow up with dermatology and needs referral osteoepenia1 Pt did a bone de nsity on his own and was told that he has osteopenia right hip area . anxiety1 Pt has chronic a nxiety and depression Pt denies any suicidal or homicidal thought .Pt denies any crying spells. Pt wants to try some medication for above .Pt is seeing counselor now at [facility] HLP Pt has persisten t HLP Pt is not on any diet thyroid1 Pt has mildly heena rderline low thyroid pt denies any dysphagia or neck pain Pt does feel mild fatigue with weight gain hematuria1 Pt has mild jose juan turia Pt denies any urinary symptoms Pt did have renal stone pt denies any flank pain. May-14-2025 renal cyst1 Pt has simple le ft renal cyst physical Pt needs annual physical Pt c/o [...] time. His skin biopsy showed ? lupus? 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 cervical disc pathology. Pt is seeing [facility] doctor but no plans for any further [...] cervical disc issue [facility] but he is not interested in any neck surgery Pt states that his left arm symptoms are not bad now. He has mild neck pain intermittently liver lesion1 Pt recently had CT of abdomen done by [facility] and was told ok per patient. Pt [...] Pt denies any sob .Pt went to [facility] ER on 05/31/21 for chest pain and he had negative cardiac enzymes and EKG and he had CT angio of chest, abd and pelvis which showed benign hepatic cyst. Pt denies any exertional chest pain. Pt also has left arm numbness and tingling and weakness. Pt is seeing PCP at [facility] who ordered C spine and left shoulder MRi which he is scheduled for this Saturday. Pt takes flexeril and also mobic but not helping his constant pain around left shoulder and left armpit. Pt had x ray of c spine and left shoulder done which were benign. Instructions Date Instruction Additional Infor whitney No Information Assessments Type Assessment Date No Information
[2025-07-06 15:00] VITALS: BMI 28.0
--- OUTSIDE RECORDS SUMMARY | 2025-07-22 01:15 | XMS_ITS | Clinical Summary ---
Author Organization [facility] Address [address] [place] [address] Care Team Providers Care Code Number Stamper Name Role Phone Hayden Carrillo MD Primary Care Provider [phone] Allergies Active Allergy Reactions Criticality Noted Date [...] wide field photographs, okay to follow in [facility] or locally. Call immediately if any worsening [...] CDT Gender Identity Male 12/04/2022 8:26 PM TALENT SCOUT Sexual Orientation Straight 12/04/2022 8: 26 PM TALENT SCOUT Obstetrics History Last Filed Vital Signs Vital [...] of 2) 2023 Covid-19 Vaccine (4 - 2024- season) 2025 10/15/2021, 02/12/2021, 01/22/2021 Influenza Vaccine (#1) 2025 , 08/29/2019, 07/14/2017, Additional history exists DTaP/Tdap/Td Vaccine (2 - Td or Tdap) 06/25/2026 06/25/2016 Pneumococcal vaccine <65 Aged Out No longer eligible based on patient's age to complete this topic Insurance [facility] Care Teams Code Number Stamper Relationship Specialty Start Date End Date Hayden Carrillo MD [facility] [place] [address] PCP - General Family Medicine 12/24/23
--- OUTSIDE RECORDS SUMMARY | 2025-07-22 01:16 | XMS_ITS | Clinical Summary ---
Author Organization [facility] Address [address] [place] [address] Care Team Providers Care Loss Control Consultant Name Role Phone Unavailable Primary Care Provider Unavailabl e Source Comments [facility],non-owned Affiliates and Associated Physician Practices is amultiple site organization consisting of ambulatory clinics and hospital sitesin [place], [place], [place] and [place]. This disclosure is being madepursuant to the Care Everywhere program and may not contain all information available regarding this patient. Last updated 18.[facility] Allergies No known active allergies Social History Tobacco Use Types Packs/Day Years Used Date Smoking Tobacco: Never Assessed Sex and Gender Information Value Date Recorded Sex Assigned at Not on file Legal Sex Male 12:19 PM BOX INSPECTOR Gender Identity Not on file Sexual Orientation Not on file Last Filed Vital Signs Vital Sign Reading Time Taken Comments Blood Pressure - - Pulse 72 10/31/2020 1:50 PM BOX INSPECTOR Temperature - - Respiratory Rate - - Oxygen Saturation - - Inhaled Oxygen Concentration - - Weight 84.8 kg (187 lb) 10/31/2020 1:50 PM BOX INSPECTOR Height 179.1 cm (5' 10.5) 10/31/2020 1:50 PM CS T Body Mass Index 26.45 10/31/2020 1:50 PM BOX INSPECTOR Plan of Treatment Health Maintenance Due [...] 2023 ZOSTER VACCINE (1 of 2) 2023 DEPRESSION SCREENING 11/04/2024 COVID-19 VACCINE (1 - 2023-2 5 season) 2025 INFLUENZA VACCINE (#1) 2025 HIB VACCINE Aged [...]
--- OUTSIDE RECORDS SUMMARY | 2025-07-22 01:16 | XMS_ITS | Clinical Summary ---
Author Organization [facility] Address [address] [place] [address] Care Team Providers Care Baker Second Name Role Phone Unavailable Primary Care Provider Unavailabl e Encounters Date Type Department Care Team Description 07/21/2025 External Device Data STL ABSTRACTION Provider, Abstract 06/22/2025 External Device Data STL ABSTRACTION Provider, [...]
--- OUTSIDE RECORDS SUMMARY | 2025-07-22 01:16 | XMS_ITS | Clinical Summary ---
Author Organization [facility] Address [facility] [place] [address] Care Team Providers Care Senior Python Developer Name Role Phone Hayden Carrillo MD Primary Care Provider [phone] Allergies Active Allergy Reactions Criticality Noted Date [...] drink = 0.6 oz pur e alcohol) [facility] Utilities Answer Date Recorded In the past 12 months has [employer], gas, oil, or water company threatened to [...] any time in the past 12 m [facility], were you homeless or living in a group home (including now)? No 03/23/2024 Sex and Gender Information Value Date Recorded Sex Assigned at Male 05/17/2025 3:22 PM CDT Legal Sex Male 8:18 PM CDT Gender Identity Male 12/05/2022 8:37 AM DIE DESIGNER APPRENTICE Sexual Orientation Straight 12/05/2022 8: 37 AM DIE DESIGNER APPRENTICE Last Filed Vital Signs Vital Sign Reading [...] 11:56 AM CDT Height 175.3 cm (5' 9.02) 03/24/2024 11:56 AM C DT Body Mass [...] 2023 Zoster Vaccines (1 of 2) 2023 PHQ-2 (Physician [place]) 11/04/2024 COVID-19 Vaccine (4 - 2024-2 6 season) 2025 10/14/2021, 02/12/2021, 01/22/2021 Meningococcal B Vaccine Aged Out No l [...] Irwin, RN Medical Devices Implanted Type Area Supervisor Audit Clerks Device Identifier Shelf Expiration Date Model / Serial / Lot Stent Ureteral Lincoln Sci Contour 7fr X 28cm - [id number] Implanted:Qty : 1 on 03/24/2024 by Saul Youssef MD at [facility] Stent Right: Ureter Trulia NICA [id number] 07/10/2024 [id number] / / [id number] Insurance [facility] Advance Directives * Full Code (Latest Code Status on File) Date Activated Date Inactivated Comments 03/23/2024 2:59 PM 03/25/2024 12:26 PM Care Teams Senior Python Developer Relationship Specialty Start Date End Date Hayden Carrillo MD [address] [place] [address] PCP - General FAMILY PRACTICE 04/04/20
--- OUTSIDE RECORDS SUMMARY | 2025-07-22 01:16 | XMS_ITS | Encounter Summary ---
Author Organization [facility] Address [address] [place] [address] Care Team Providers Care Letterset Press Set Up Operator Name Role Phone Unavailable Primary Care Provider Unavailabl e Encounter Details Date Type Department Care Team (Late st Contact Info) Description 07/21/2025 External Device Data [facility] ABSTRACTION Provider, Abstract NO ADDRESS ON FILE Social History Tobacco Use Types Packs/Day Years Used Date Smoking Tobacco: Never Assessed Sex and Gender Information Value Date Recorded Sex Assigned at Male 02/19/2025 9:38 PM CDT Legal Sex Male 12:14 PM CDT Gender Identity Male 02/19/2025 9:38 PM CDT Sexual Orientation Straight 02/19/2025 9: 38 PM CDT documented as of this encounter Plan of Treatment Not on file documented as of this encounter Visit Diagnoses Not on filedocumented in this encounter
--- OUTSIDE RECORDS SUMMARY | 2025-07-22 01:16 | XMS_ITS | Encounter Summary ---
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 Name Role Phone Unavailable Primary Care Provider Unavailabl e Encounter Details Date Type Department Care Team (Late st Contact Info) Description 08/12/2024 Lab Requisition [facility] - DermPath Lab [address] [facility] [place] [address] Letty Almanza MD [address] [place] [phone] Dermatitis, unspecified Social History Tobacco Use Types Packs/Day Years Used Date Smoking Tobacco: Never Assessed Sex and Gender Information Value Date Recorded Sex Assigned at Not on file 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 Gender Identity Not on file Sexual Orientation Not on file documented as of this encounter Plan of Treatment Not on file documented as of this encounter Procedures Procedure Name Priority Date/Time Associated Diagnosis Comments DERMATOPATHOLOGY Routine 08/12/2024 12:0 0 AM CDT Dermatitis, unspecified documented in this encounter Results * DERMATOPATHOLOGY (08/12/2024 12:00 AM CDT) Case Report Dermatopathology Report Case: [id number] Authorizing Provider: Letty Almanza MD Collected: 08/12/2024 12:00 AM Ordering Location: [facility] - Received: 08/13/2024 12:50 PM DermPath Lab Pathologist: Padma Tee MD Specimen: Skin, right forearm 3:31 PM CDT DERMATOPATHOLOGY LABORATORY Final Diagnosis Specimen A. 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 The specimen consists of a shave biopsy measuring 7x7x2 mm. Jar 0. 3:31 PM [facility] DERMATOPATHOLOGY LABORATORY Microscopic Description Specimen [...] Clinical correlation is recommended. 3:31 PM [facility] DERMATOPATHOLOGY LABORATORY Disclaimer An external and internal positive and negative controls are appropriate for the histochemical, immunohistochemical and immunofluorescence stain(s) in this case (if any), except where stated explicitly. The performance characteristics of the stain(s) cited in this report were developed and its performance characteristic determined by the Dermatopathology Laboratory at [facility], directed by Dr. Calvin Ayers. These tests need not be, and therefore are not, approved by the [place] Food and Drug Administration. The tests are used for clinical purposes. Billing Codes Specimen Charges Stain Charges 75165 1 32674 96223 1 1 3:31 PM T DERMATOPATHOLOGY LABORATORY Embedded Images 3:31 PM [facility] DERMATOPATHOLOGY LABORATORY Pathology/Cytolog y TISSUE SPECIMEN FROM SKIN / Unknown 08/12/2024 08/13/2024 12:50 PM CDT us Letty Almanza MD LAB - PATHOLOGY/CYTOLOGY ORDERAB LES Final Result DERMATOPATHOLOGY LABORATORY [facility] - Department of Dermatology [facility] Medicine [address] [place] [address], [address] [phone] documented in this encounter Visit Diagnoses Diagnosis Dermatitis, unspecified documented in this encounter
[2025-07-22 06:46] VITALS: BP 131/69; PULSE 69; RESP 20; TEMP 36.1; O2SAT 99; BMI 27.1
[2025-07-22] MEDS: LACTATED RINGERS 1,000 ML 150 ML IV CONT (06:56)
--- NOTE | 2025-07-22 06:59 | WPDANESEPPF ---
Anes - Initial Pre Proc Eval Procedure: Operation Date: 07/22/25 08:00 Proposed Procedures p Screening Colonoscopy - Tyron Almodovar MD Date/Time: 07/22/25 06:59 Surgeon: Tyron Almodovar MD Pre Op Diagnosis: Family Hx of malignant neoplasm of digestive organ Patient Data Age: 49 Gender: M Height: 1.75 m Weight: 83.2 kg Last Vital Signs Temp 36.1 C L 07/22/25 06:46 Pulse 69 07/22/25 06:46 Resp 20 07/22/25 06:46 BP 131/69 07/22/25 06:46 Pulse Ox 99 07/22/25 06:46 O2 Del Method Room Air 07/22/25 06:46 Allergies Allergy/AdvReac Type Severity Reaction Status Date / Time morphine Allergy Severe Anaphylaxis Verified 07/22/25 06:43 Home Medications ?Medication ?Instructions ?Recorded ?Confirmed ?Type pqtwzvwj-lutqbszc-zdzux acid 400 1 tablet PO DAILY 09/06/23 07/22/25 History mcg-vit K 20 mcg-lycop 300 mcg tablet (One-A-Day Men's Multivitamin) peg 3350-electrolytes 236 240 ml PO Q10M #4,000 mL 04/19/25 07/22/25 Rx gram-22.74 gram-6.74 gram-5.86 gram solution (Golytely) fluorouracil 5 % topical cream 1 applic topical DAILY 07/06/25 07/22/25 History metronidazole 0.75 % topical gel 1 applic topical DAILY 07/06/25 07/22/25 History rosuvastatin 10 mg tablet 10 mg PO DAILY 07/06/25 07/22/25 History Patient hx anesthesia problems: none Family hx anesthesia problems: none Results Review: All pre-operative results and documents have been reviewed as part of the pre-operative evaluation. [facility] Past Medical History Medical History Nephrolithiasis TYLER (obstructive sleep apnea) Dyslipidemia Surgical History Surgical History History of cholecystectomy H/O arthroscopy of right knee S/P T&A (status post tonsillectomy and adenoidectomy) Family History Family History Mother Cancer Father Nephrolithiasis Sibling Nephrolithiasis Social History Social History Smoking status: Never smoker Alcohol intake: never Substance use: never Substance use type: does not use Do You Feel Safe in your Home?: Yes Lack of Transportation: No Lack of Food: Never True Current Housing: I Have Housing Concerned About Future Housing: No Difficulty Paying Gas/Electric Bills: No Difficulty Paying for Meds: No Currently Unemployed: YES Education: Bachelor's Degree Difficulty w/ Childcare or Family Care: No Living arrangements: with family Occupation/Education: student Gender identity (if verbalized by the patient): Male Spiritual care concerns: No Anes - Eval Final PreProcedure Day of Procedure 07/22/25 06:59 Patient weight: overweight Heart: regular rate and rhythm Lungs: clear to auscultation Airway: Mallampati scale class II Neurological: alert and oriented Last oral intake: >/= 8 hours ASA classification: III Emergent: no Anesthetic plan: proceed Anesthesia type and monitoring: general GIVS and standard monitoring Results Review: All pre-operative results and documents have been reviewed as part of the pre-operative evaluation. Informed Consent: The patient's anesthetic plan and its attendant risks and benefits were discussed with the patient/family/POA. Questions were solicited and answers provided to the satisfaction of the patient/family/POA.
--- NOTE | 2025-07-22 07:44 | PM.HPGS ---
History of Present Illness History of Present Illness Consent: Risks, benefits, and alternatives have been discussed and questions answered. Patient agrees to proceed with procedure. Chief complaint: Family Hx of malignant neoplasm of digestive organ Narrative: Philip De Leon is a 49 year old male with last colonoscopy 5 years ago, father had colon cancer Review of Systems Review of Systems: All systems reviewed & are unremarkable except as noted in HPI and below PMFSH Past Medical History Medical History (Updated 07/22/25 @ 07:47 by Tyron Almodovar MD) Family history of colon cancer Nephrolithiasis TYLER (obstructive sleep apnea) Dyslipidemia Surgical History Surgical History History of cholecystectomy H/O arthroscopy of right knee S/P T&A (status post tonsillectomy and adenoidectomy) Family History Family History Mother Cancer Father Nephrolithiasis Sibling Nephrolithiasis Social History Social History Smoking status: Never smoker Alcohol intake: never Substance use: never Substance use type: does not use Do You Feel Safe in your Home?: Yes Lack of Transportation: No Lack of Food: Never True Current Housing: I Have Housing Concerned About Future Housing: No Difficulty Paying Gas/Electric Bills: No Difficulty Paying for Meds: No Currently Unemployed: YES Education: Bachelor's Degree Difficulty w/ Childcare or Family Care: No Living arrangements: with family Occupation/Education: student Gender identity (if verbalized by the patient): Male Spiritual care concerns: No Meds Home Medications and Allergies Home Medications ?Medication ?Instructions ?Recorded ?Confirmed ?Type ofdyxdef-xoiemofn-gwaki acid 400 1 tablet PO DAILY 09/06/23 07/22/25 History mcg-vit K 20 mcg-lycop 300 mcg tablet (One-A-Day Men's Multivitamin) peg 3350-electrolytes 236 240 ml PO Q10M #4,000 mL 04/19/25 07/22/25 Rx gram-22.74 gram-6.74 gram-5.86 gram solution (Golytely) fluorouracil 5 % topical cream 1 applic topical DAILY 07/06/25 07/22/25 History metronidazole 0.75 % topical gel 1 applic topical DAILY 07/06/25 07/22/25 History rosuvastatin 10 mg tablet 10 mg PO DAILY 07/06/25 07/22/25 History Allergies Allergy/AdvReac Type Severity Reaction Status Date / Time morphine Allergy Severe Anaphylaxis Verified 07/22/25 06:43 Vital Signs Vital Signs - 24 hr 07/22/25 06:46 Temperature 97 F L Pulse Rate 69 Respiratory Rate 20 Blood Pressure 131/69 Pulse Oximetry 99 Oxygen Delivery Room Air Exam Const: General: comfortable and no acute distress HENMT: Face/Nose/Sinus: Normal nares present Eyes: General: appearance normal, both eyes and all related structures Neck: Neck: no JVD Resp: Auscultation: clear to auscultation bilaterally Cardio: Rate: regular rate Rhythm: regular rhythm GI: Inspection: non-distended GI Palp: Yes Soft to palpation Skin: General skin exam: normal color Neuro: Speech: normal speech Extrem: General: normal to inspection Psych: Mental Status: mental status grossly normal Assessment and Plan Assessment and plan (1) Family history of colon cancer: Code(s): Z80.0 - Family history of malignant neoplasm of digestive organs Status: Acute Assessment and Plan: colonoscopy
[2025-07-22 07:57] VITALS: BP 116/71; PULSE 87; RESP 22; O2SAT 98
[2025-07-22 08:07] VITALS: BP 110/70; PULSE 73; RESP 22; O2SAT 99
[2025-07-22 08:17] VITALS: BP 125/69; PULSE 67; RESP 21; O2SAT 99
== END 2025-07-22 08:33 | disposition home or self-care (01) ==
PROVIDERS: PCP Emergency Medicine; Referring Provider Emergency Medicine; Visit Provider Internal Medicine Gastroenterology
PROC: 0DJD8ZZ Inspection of Lower Intestinal Tract, Via Natural or Artificial Opening Endoscopic (ICD-10-PCS; CPT 45378; principal; 2025-07-22 08:00)
DX: Z12.11 Encounter for screening for malignant neoplasm of colon (principal); E78.5 Hyperlipidemia, unspecified; G47.33 Obstructive sleep apnea (adult) (pediatric); Z98.890 Other specified postprocedural states; Z90.49 Acquired absence of other specified parts of digestive tract; Z80.0 Family history of malignant neoplasm of digestive organs
CPT/HCPCS: 45378; J2003; J2704; J7120